=== PATIENT | female | born 1935 | race Caucasian/White ===

== ENCOUNTER 2020-07-28 08:00 | Outpatient (REF) | payer MEDICARE, SELFPAY ==
[2020-07-28 15:22] LABS: Creatinine Urine 153.73 mg/dL; Microalbum/Creatinine Ratio Ur 47.4 ug/mg cr
== END 2020-07-28 08:01 | disposition home or self-care (01) ==
LOC: HO.LAB 08:00
PROVIDERS: Visit Provider Family Medicine
DX: E11.9 Type 2 diabetes mellitus without complications (principal)
CPT/HCPCS: 82043

== ENCOUNTER → 2020-08-13 10:21 | Outpatient (BNVA) | payer MEDICARE, SELFPAY | PROVIDERS: PCP Family Medicine; Referring Provider Family Medicine; Visit Provider Internal Medicine Cardiovascular Disease | DX: I25.10 Atherosclerotic heart disease of native coronary artery without angina pectoris (principal) | CPT/HCPCS: 99212 ==

== ENCOUNTER 2020-10-27 14:07 | Outpatient (REF) | payer MEDICARE, SELFPAY ==
[2020-10-27 14:54] LABS: Creatinine Urine 158.52 mg/dL; Microalbum/Creatinine Ratio Ur 34.6 ug/mg cr
== END 2020-10-27 14:08 | disposition home or self-care (01) ==
LOC: HO.LNP 14:07
PROVIDERS: Visit Provider Family Medicine
DX: I10 Essential (primary) hypertension (principal); E11.9 Type 2 diabetes mellitus without complications
CPT/HCPCS: 82043

== ENCOUNTER → 2021-02-16 10:02 | Outpatient (BNVA) | payer MEDICARE, SELFPAY | PROVIDERS: PCP Family Medicine; Referring Provider Family Medicine; Visit Provider Internal Medicine Cardiovascular Disease | DX: I25.10 Atherosclerotic heart disease of native coronary artery without angina pectoris (principal); I10 Essential (primary) hypertension | CPT/HCPCS: 93005; 99212 ==

== ENCOUNTER 2021-04-07 07:14 | Outpatient (REF) | payer MEDICARE, SELFPAY ==
[2021-04-07 09:07] LABS: Hematocrit 41.3 % (37-47); Hemoglobin 13.7 g/dl (12.0-16.0); Mean Corpuscular HGB Conc 33.2 g/dl (31.0-35.0); Mean Corpuscular Hemoglobin 29.7 pg (27.0-33.0); Mean Corpuscular Volume 89.4 fL (80-98); Mean Platelet Volume 10.5 fL (9.4-12.3); Platelet Count 348 X10*3/uL (160-400); Red Blood Count 4.62 X10*6/uL (4.20-5.50); Red Cell Distribution Width 12.3 % (11.0-16.0); White Blood Count 9.2 X10*3/uL (4.8-10.8)
[2021-04-07 09:32] LABS: Alanine Aminotransferase 30 U/L (0-31); Albumin Level 4.2 g/dL (3.5-5.0); Alkaline Phosphatase 81 U/L (39-117); Anion Gap 15 (12-20); Aspartate Amino Transferase 19 U/L (5-31); Bilirubin Total 0.7 mg/dL (0.0-1.0); Blood Urea Nitrogen 17 mg/dL (9-16); Calcium 9.5 mg/dL (8.4-10.2); Carbon Dioxide 23 mmol/L (22-29); Chloride 107 mmol/L (96-108); Cholesterol 126 mg/dL; Estimated Glomerular Filt Rate > 60; Glucose Fasting 156 mg/dL (60-99); HDL Cholesterol 53 mg/dL; LDL Cholesterol Calculated 56 mg/dl; Potassium 5.1 mmol/L (3.3-5.1); Sodium 140 mmol/L (135-145); Total Protein 6.6 g/dL (6.5-8.0); Triglycerides 87 mg/dL
[2021-04-07 09:38] LABS: Iron 64 mcg/dL (30-160); Magnesium 1.6 mg/dL (1.6-2.6); Percent Iron Saturation 17 % (15-50); Phosphorus 4.2 mg/dL (2.7-4.5); Total Iron Binding Capacity 379 mcg/dL (228-428); Unsaturated Iron Binding 315 ug/dL
[2021-04-07 09:42] LABS: Creatinine Urine 157.66 mg/dL; Protein/Creatinine Ratio, Ur 0.51 (<0.2); Total Protein Urine Random 81 mg/dL (<12)
[2021-04-07 09:45] LABS: Creatinine Urine 158.97 mg/dL
[2021-04-07 10:05] LABS: Microalbum/Creatinine Ratio Ur 342.2 ug/mg cr
[2021-04-07 10:12] LABS: Vitamin D 25-OH Total 15.6 ng/mL (>30)
[2021-04-07 10:42] LABS: Ferritin 30 ng/mL (10-250)
[2021-04-09 17:51] LABS: Calcium (PTHI) 9.5 mg/dL (8.6-10.4); PTHI 56 pg/mL (14-64)
== END 2021-04-07 07:15 | disposition home or self-care (01) ==
LOC: HO.LAB 07:14
PROVIDERS: PCP Family Medicine; Visit Provider Internal Medicine Nephrology
DX: Z00.00 Encounter for general adult medical examination without abnormal findings (principal); I12.9 Hypertensive chronic kidney disease with stage 1 through stage 4 chronic kidney disease, or unspecified chronic kidney disease; N18.31 Chronic kidney disease, stage 3a; E11.22 Type 2 diabetes mellitus with diabetic chronic kidney disease; I25.10 Atherosclerotic heart disease of native coronary artery without angina pectoris
CPT/HCPCS: 36415; 80053; 80061; 82043; 82306; 82728; 83540; 83735; 83970; 84100; 84156; 85027

== ENCOUNTER → 2021-04-16 12:50 | Outpatient (REF) | payer MEDICARE, SELFPAY ==
--- NOTE | 2021-04-16 12:52 | CA_ITS ---
Transthoracic Echocardiogram Patient (Last, First, Middle): Candace Rodriguez, Gender: Female Date of : 1935 Age: 85 Procedure Date: 04/16/2021 Procedure Type: Transthoracic Echocardiogram Location: OP Height: 149.86 cm Weight: 64.86 kg BSA: 1.60 m2 Heart Rate: bpm BP: 122 / 46 mmHg Winder Hand: Referring MD: Nico Sanchez MD Symptoms: I25.10 - Atherosclerotic heart disease of [place] coronary... Study Quality: Fair ECG Rhythm: Sinus Conclusions: - The left ventricular systolic function is normal. The visually estimated ejection fraction is between 65-70%. - There is mildly decreased right ventricular systolic function. - The left atrium is moderately dilated. - There is mild calcification of the aortic valve. - There is moderate posterior mitral annular calcification. - There is mild tricuspid valve regurgitation. - Small plaque is seen in the sinuses of Valsalva. Findings Left Ventricle Normal left ventricular cavity size. There is mildly increased left ventricular wall thickness. The left ventricular systolic function is normal. The visually estimated ejection fraction is between 65-70%. E/E prime ratio is >15, consistent with elevated filling pressures. Evidence suggests grade I (mild) diastolic dysfunction. Right Ventricle Normal right ventricular cavity size. There is mildly decreased right ventricular systolic function. TAPSE 1.52cm. Atria The left atrium is moderately dilated. The right atrium is normal in size. Aortic Valve There is mild calcification of the aortic valve. There is no aortic valve stenosis. There is mild aortic valve regurgitation. Mitral Valve There is moderate posterior mitral annular calcification. There is mild mitral valve regurgitation. There is no mitral valve stenosis. Pulmonic Valve There is mild pulmonic valve regurgitation. Tricuspid Valve Normal tricuspid valve structure. There is mild tricuspid valve regurgitation. The pulmonary artery systolic pressure is normal. Great Vessels The aortic annulus, sinuses of valsalva, asc aorta, and aortic arch are normal in size. Small plaque is seen in the sinuses of Valsalva. Venous The inferior vena cava is normal in size and collapses greater than 50% with inspiration. Pericardium/Pleural There is no evidence of pericardial effusion. Prior Study Comparison Changes noted compared to prior study dated: 04/22/2020. Apical wall motion abnormality not appreciated. Measurements 2D Linear Measurements RVIDd: 3.23 RVIDd Index: 2.02 IVSd: 1.30 0.6-0.9/0.6-1.0 cm LVIDd: 4.20 3.9-5.3/4.2-5.9 cm LVIDd Index: 2.63 2.4-3.2/2.2-3.1 cm/m2 LVIDs: 2.48 2.0-3.6 cm LVPWd: 1.08 0.7-1.1 cm Ao Root: 2.80 2.1-3.5 cm LA Diam: 4.60 2.7-3.8/3.0-4.0 cm LAIDs Index: 2.88 1.5-2.3 cm/m2 LV Mass: 219.23 67-162/88-224 g LV Mass Index: 137.02 43-95/49-115 g/m2 LVOT Diam: 2.00 3.0+(-)1.3 cm 2D Systolic Function EF 4C: 61.30 >55% EF 2C: 72.30 >55% EF BiP: 69.10 >55% Mitral Valve MV Pk E: 1.06 MV PK A: 1.58 MV Decel Time: 420.00 E/A: 0.70 E'Lateral: 6.42 E'Medial: 3.81 E/E' Med: 27.80 E/E' Lat: 16.50 Aortic Valve AoV Pk Francisco Javier: 1.82 AoV Mn Francisco Javier: 1.41 AoV VTI: 0.43 AoV Pk Grad: 13.00 Aov Mn Grad: 9.00 AZEEM Cont.VTI: 1.83 AI Pk Francisco Javier: 3.96 AI Kent: 1.85 LVOT LVOT Pk Francisco Javier: 1.19 LVOT Mn Francisco Javier: 0.87 LVOT VTI: 0.25 LVOT Pk Grad: 6.00 LVOT Mn Grad: 3.00 LVOT Diam: 2.00 LVOT Area: 3.14 Diastolic Function MV Pk E: 1.06 MV Pk A: 1.58 E/A: 0.70 E'Medial: 3.81 E/E' Med: 27.80 E' Laterial: 6.42 E/E' Lat: 16.50 Right Ventricle TAPSE (mm): 15.00 TVS' Francisco Javier: 6.20 Tricuspid Valve TR Pk Francisco Javier: 2.59 TR Pk Grad: 27.00 RA Press: 3.00 RVSP: 30.00 Great Vessels Aorta Ao Root-2D: 2.80 2.0-3.7 cm Ao Asc: 3.20 2.1-3.4 cm Ao Arch: 2.60 Updated in Other Vendor System with Status of Final Benitez Christy MD electronically signed on 04/17/2021 11:29:30 AM with status of Final
== END ==
LOC: HO.CARD 12:50
PROVIDERS: PCP Family Medicine; Visit Provider Internal Medicine Cardiovascular Disease
DX: I25.10 Atherosclerotic heart disease of native coronary artery without angina pectoris (principal)
CPT/HCPCS: 93306

== ENCOUNTER 2021-08-02 12:09 | Outpatient (REF) | payer MEDICARE, SELFPAY ==
[2021-08-02 14:11] LABS: Appearance Urine CLEAR; Color Urine YELLOW; Glucose Urine UA NEG (NEG); Leukocyte Esterase Urine NEG (NEG); Nitrite Urine NEG (NEG); PH 5.5 (5.0-8.0); Specific Gravity - Urine >= 1.030 (1.005-1.025); Urine Blood NEG (NEG); Urine Ketones NEG (NEG); Urine Protein 2+ MG/DL (NEG-TRACE)
[2021-08-02 14:30] LABS: Alanine Aminotransferase 34 U/L (0-31); Albumin Level 4.4 g/dL (3.5-5.0); Alkaline Phosphatase 99 U/L (39-117); Anion Gap 17 (12-20); Aspartate Amino Transferase 21 U/L (5-31); Bilirubin Total 0.8 mg/dL (0.0-1.0); Blood Urea Nitrogen 17 mg/dL (9-16); Calcium 10.1 mg/dL (8.4-10.2); Carbon Dioxide 21 mmol/L (22-29); Chloride 106 mmol/L (96-108); Cholesterol 136 mg/dL; Estimated Glomerular Filt Rate > 60; Glucose Random 138 mg/dL (60-115); HDL Cholesterol 51 mg/dL; LDL Cholesterol Calculated 55 mg/dl; Potassium 5.3 mmol/L (3.3-5.1); Sodium 139 mmol/L (135-145); Total Protein 7.3 g/dL (6.5-8.0); Triglycerides 153 mg/dL
[2021-08-02 14:31] LABS: Estimated Average Glucose 174 mg/dL; Hemoglobin A1c % 7.7 %
[2021-08-02 14:51] LABS: Creatinine Urine 123.55 mg/dL; Microalbum/Creatinine Ratio Ur 599.7 ug/mg cr
[2021-08-02 14:52] LABS: TSH reflex Free T4 3.29 uIU/mL (0.32-4.0)
[2021-08-02 16:06] LABS: Bacteria Urine TRACE /LPF; RBC Urine 0-2 /HPF (0); Squamous Epithelial Cell Urine 1+ /LPF; WBC Urine 0-2 /HPF (0-4)
== END 2021-08-02 12:10 | disposition home or self-care (01) ==
LOC: HO.WFDLDS 12:09
PROVIDERS: Visit Provider Family Medicine
DX: Z00.00 Encounter for general adult medical examination without abnormal findings (principal); I10 Essential (primary) hypertension; E11.65 Type 2 diabetes mellitus with hyperglycemia
CPT/HCPCS: 36415; 80053; 80061; 81001; 81003; 82043; 83036; 84443

== ENCOUNTER 2021-08-06 07:20 | Outpatient (REF) | payer MEDICARE, SELFPAY ==
[2021-08-06 13:47] LABS: Appearance Urine HAZY; Color Urine YELLOW; Glucose Urine UA NEG (NEG); Leukocyte Esterase Urine NEG (NEG); Nitrite Urine NEG (NEG); PH 5.5 (5.0-8.0); Specific Gravity - Urine 1.025 (1.005-1.025); Urine Blood NEG (NEG); Urine Ketones NEG (NEG); Urine Protein 1+ MG/DL (NEG-TRACE)
[2021-08-06 13:56] LABS: RBC Urine 0 /HPF (0); Uric Acid Crystals Urine 2+ /LPF; WBC Urine 0-2 /HPF (0-4)
[2021-08-06 13:57] LABS: Amorphous Sediment Urine 2+ /LPF; Squamous Epithelial Cell Urine TRACE /LPF
== END 2021-08-06 07:21 | disposition home or self-care (01) ==
LOC: HO.WFDLDS 07:20
PROVIDERS: Visit Provider Family Medicine
DX: Z00.00 Encounter for general adult medical examination without abnormal findings (principal)
CPT/HCPCS: 81001; 81003

== ENCOUNTER → 2021-08-12 09:57 | Outpatient (BNVA) | payer MEDICARE, SELFPAY | PROVIDERS: PCP Family Medicine; Referring Provider Family Medicine; Visit Provider Internal Medicine Cardiovascular Disease | DX: I25.10 Atherosclerotic heart disease of native coronary artery without angina pectoris (principal); I10 Essential (primary) hypertension | CPT/HCPCS: 99212 ==

== ENCOUNTER 2021-11-22 11:29 | Outpatient (REF) | payer MEDICARE, SELFPAY ==
[2021-11-22 14:23] LABS: Anion Gap 17 (12-20); Blood Urea Nitrogen 22 mg/dL (9-16); Calcium 9.8 mg/dL (8.4-10.2); Carbon Dioxide 21 mmol/L (22-29); Chloride 104 mmol/L (96-108); Estimated Glomerular Filt Rate 52; Glucose Random 170 mg/dL (60-115); Sodium 137 mmol/L (135-145)
[2021-11-22 14:35] LABS: Creatinine Urine 209.12 mg/dL; Microalbum/Creatinine Ratio Ur 90.8 ug/mg cr
== END 2021-11-22 11:30 | disposition home or self-care (01) ==
LOC: HO.WFDLDS 11:29
PROVIDERS: Visit Provider Family Medicine
DX: Z00.00 Encounter for general adult medical examination without abnormal findings (principal); I10 Essential (primary) hypertension
CPT/HCPCS: 36415; 80048; 82043

== ENCOUNTER → 2022-08-04 09:15 | Outpatient (REF) | payer MEDICARE, SELFPAY ==
--- NOTE | 2022-08-04 09:23 | CA_ITS ---
Transthoracic Echocardiogram Patient (Last, First, Middle): Candace Rodriguez, Gender: Female Date of : 1935 Age: 87 Procedure Date: 08/04/2022 Procedure Type: Transthoracic Echocardiogram Location: OP Height: 149.86 cm Weight: 63.5 kg BSA: 1.58 m2 Heart Rate: bpm BP: 132 / 55 mmHg Wood Grinder Operator: ALISSA Referring MD: Nico Sanchez MD Camp Attendant: Nico Sanchez MD Symptoms: I25.10 - Atherosclerotic heart disease of [place] coronary... Study Quality: Adequate ECG Rhythm: Sinus Conclusions: - 1. Normal LV systolic function with mild LVH with impaired relaxation filling pattern 2. Moderately dilated left atrium 3. Mild calcific aortic stenosis 4. Severe mitral calcification with possible mild mitral stenosis 5. Normal RV systolic pressure 6. No pericardial effusion Findings Left Ventricle Normal left ventricular size and systolic function. There is mildly increased left ventricular wall thickness. The visually estimated ejection fraction is between 60-65%. Spectral Doppler is indicative of an impaired relaxation filling pattern. Elevated filling pressures. Peak GLS is -18.1%, within normal limits Right Ventricle Normal right ventricular cavity size. There is mildly decreased right ventricular systolic function. Atria The left atrium is moderately dilated. There is lipomatous hypertrophy of the interatrial septum. There is no evidence of interatrial shunt. The right atrium is likely dilated. Aortic Valve The aortic valve was not well visualized. There is mild calcification of the aortic valve. There is mild thickening of the aortic valve. There is mild aortic valve stenosis. The aortic valve area is 1.70 cm2. There is mild aortic valve regurgitation. Mitral Valve There is mild anterior and severe posterior mitral leaflet thickening. There is severe mitral annular calcification. There is mild mitral valve regurgitation. There is mild mitral valve stenosis. Pulmonic Valve The pulmonic valve was not well visualized. There is trace to mild pulmonic valve regurgitation. Tricuspid Valve Normal tricuspid valve structure. There is mild tricuspid valve regurgitation. The right ventricular systolic pressure is normal. The right ventricular systolic pressure is 25 mmHg. Normal right atrial pressure. There is no evidence of pulmonary hypertension. Great Vessels Small plaque is seen in the sino tubular ridge. Venous The inferior vena cava is normal in size and collapses greater than 50% with inspiration. Pericardium/Pleural There is no evidence of pericardial effusion. Prior Study Comparison Changes noted compared to prior study dated: 04/16/2021. mild aortic stenosis is possibly present Measurements 2D Linear Measurements IVSd: 1.35 0.6-0.9/0.6-1.0 cm LVIDd: 4.32 3.9-5.3/4.2-5.9 cm LVIDd Index: 2.73 2.4-3.2/2.2-3.1 cm/m2 LVIDs: 3.04 2.0-3.6 cm LVPWd: 1.31 0.7-1.1 cm LA Diam: 4.20 2.7-3.8/3.0-4.0 cm LAIDs Index: 2.66 1.5-2.3 cm/m2 LV Mass: 269.82 67-162/88-224 g LV Mass Index: 170.78 43-95/49-115 g/m2 LVOT Diam: 1.90 3.0+(-)1.3 cm 2D Systolic Function EF 4C: 62.50 >55% EF 2C: 60.40 >55% EF BiP: 61.60 >55% Mitral Valve MV VTI: 0.57 MV Pk Francisco Javier: 2.02 MV Mn Francisco Javier: 0.92 MV Pk Grad: 16.00 MV Mn Grad: 4.00 MV Pk E: 1.19 MV PK A: 1.76 MV Decel Time: 278.00 E/A: 0.70 E'Lateral: 5.66 E'Medial: 4.13 E/E' Med: 28.80 E/E' Lat: 21.00 PHT: 81.00 MVA PHT: 2.72 MVA Continuity: 1.20 Decel [place]imble: 4.29 Aortic Valve AoV Pk Francisco Javier: 1.90 AoV Mn Francisco Javier: 1.20 AoV VTI: 0.41 AoV Pk Grad: 14.00 Aov Mn Grad: 7.00 AZEEM Cont.VTI: 1.70 AI Pk Francisco Javier: 3.28 AI Trimble: 1.52 LVOT LVOT Pk Francisco Javier: 1.01 LVOT Mn Francisco Javier: 0.66 LVOT VTI: 0.24 LVOT Pk Grad: 4.00 LVOT Mn Grad: 2.00 LVOT Diam: 1.90 LVOT Area: 2.84 Diastolic Function MV Pk E: 1.19 MV Pk A: 1.76 E/A: 0.70 E'Medial: 4.13 E/E' Med: 28.80 E' Laterial: 5.66 E/E' Lat: 21.00 Right Ventricle TAPSE (mm): 15.50 TVS' Francisco Javier: 9.25 Tricuspid Valve TR Pk Francisco Javier: 2.36 TR Pk Grad: 22.00 RA Press: 3.00 RVSP: 25.00 Great Vessels Aorta Sinus of Valsalva: 3.39 2.0-3.[address] [place]: 2.13 1.7-3.4 cm Ao Asc: 3.50 2.1-3.4 cm Updated in Other Vendor System with Status of Final Nico Sanchez MD electronically signed on 08/04/2022 1:31:49 PM with status of Final
== END ==
LOC: HO.CARD 09:15
PROVIDERS: Visit Provider Internal Medicine Cardiovascular Disease
DX: I25.10 Atherosclerotic heart disease of native coronary artery without angina pectoris (principal)
CPT/HCPCS: 93306

== ENCOUNTER → 2022-08-15 09:51 | Outpatient (BNVA) | payer MEDICARE, SELFPAY | PROVIDERS: PCP Family Medicine; Referring Provider Family Medicine; Visit Provider Internal Medicine Cardiovascular Disease | DX: I25.10 Atherosclerotic heart disease of native coronary artery without angina pectoris (principal); I35.0 Nonrheumatic aortic (valve) stenosis | CPT/HCPCS: 93005; 99212 ==

== ENCOUNTER 2022-08-18 09:48 | Outpatient (REF) | payer MEDICARE, SELFPAY ==
[2022-08-18 11:58] LABS: Cholesterol 118 mg/dL; HDL Cholesterol 46 mg/dL; LDL Cholesterol Calculated 48 mg/dl; Triglycerides 121 mg/dL
== END 2022-08-18 09:49 | disposition home or self-care (01) ==
LOC: HO.WFDLDS 09:48
PROVIDERS: Visit Provider Internal Medicine Cardiovascular Disease
DX: I25.10 Atherosclerotic heart disease of native coronary artery without angina pectoris (principal)
CPT/HCPCS: 36415; 80061

== ENCOUNTER 2022-09-20 12:22 | Outpatient (REF) | payer MEDICARE, SELFPAY ==
[2022-09-20 15:18] LABS: Anion Gap 14 (12-20); Blood Urea Nitrogen 21 mg/dL (9-16); Calcium 9.4 mg/dL (8.4-10.2); Carbon Dioxide 22 mmol/L (22-29); Chloride 107 mmol/L (96-108); Estimated Glomerular Filt Rate > 60; Glucose Random 60 mg/dL (60-115); Potassium 4.8 mmol/L (3.3-5.1); Sodium 138 mmol/L (135-145)
[2022-09-20 15:31] LABS: Creatinine Urine 127.36 mg/dL; Microalbum/Creatinine Ratio Ur 82.4 ug/mg cr
== END 2022-09-20 12:23 | disposition home or self-care (01) ==
LOC: HO.WFDLDS 12:22
PROVIDERS: Visit Provider Family Medicine
DX: Z00.00 Encounter for general adult medical examination without abnormal findings (principal); E11.9 Type 2 diabetes mellitus without complications; R80.9 Proteinuria, unspecified; I10 Essential (primary) hypertension
CPT/HCPCS: 36415; 80048; 82043

== ENCOUNTER 2023-04-12 11:11 | Outpatient (AMB) | payer MEDICARE, SELFPAY ==
[2023-04-12 11:13] VITALS: BP 118/60; PULSE 67; O2SAT 96; BMI 28.7
--- NOTE | 2023-04-12 11:13 | MHC.PC.OV ---
Vital Signs 04/12/23 11:13 Height 4 ft 11 in Weight 142 lb BMI 28.7 BP 118/60 Blood Pressure Location Lt brachial Position Sitting Pulse 67 Pulse Source Pulse Oximeter Pulse Oximetry (%) 96 Oxygen Delivery Method Room Air Intake Visit Reasons: f/u diabetes Intake Note: Patient is here to follow up on her diabetes. Allergies latex [LATEX] Allergy (Intermediate, Verified 04/12/23 11:16) ITCHING pineapple [PINEAPPLE] Allergy (Unknown, Verified 04/12/23 11:16) TONGUE SWELLS Medication List - Last Reconciled 04/12/23 by Maycol Yan MD amlodipine 10 mg PO DAILY aspirin 81 mg PO DAILY atorvastatin 40 mg PO DAILY glipizide ER 10 mg PO DAILY 90 days hydralazine 12.5 mg (1/2 x 25 mg) PO BID losartan 100 mg PO DAILY 90 days metformin 1,000 mg PO BID 90 days miscellaneous medical supply Diabetic shoes, Daily As directed, 999 days Tobacco use date assessed: 06/21/22 Fall risk assessment: No Falls in past year Last assessed Fall Risk: 04/12/23 Dental Screening Dental Screen Date: 04/12/23 Did you have a dental visit in the last 12 months?: Yes Did you have a dental problem in the last 6 months where you did not have access to dental care?: No Was dental information given to patient?: No HPI f/u diabetes HPI Details 87 y/o female presents to f/u diabetes. Last A1c 02/10/23 was 7.5%. A1c today 04/12/23 is 6.6%. She is on metformin 1000mg b.i.d. and glipizide 10mg daily. Last diabetic eye exam was in November, with no complications. 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 Sister No problems noted. Son No problems noted. Son No problems noted. Daughter No problems noted. Daughter No problems noted. Social History Housing: Condominium Patient Tobacco Use Status: Never used Tobacco e-Cigarette/Vaping Use: Never Used Second Hand Smoke Exposure: No Advance Directives Date on File: 06/10/20 service: No Current occupational status: retired Current occupational exposures/hazards: No Cognitive needs: No Hearing needs: No Vision needs: No Questionnaire Thrive Questionnaire Date Thrive assessed: 09/20/22 JUAN LUIS-7 AMB Questionnaire JUAN LUIS-7 Date JUAN LUIS - 7 assessed: 09/20/22 Source: Developed by Drs. Ace Cooper, Sophie Woody, Man Cerna and colleagues, with an educational shannan from [employer]. Review of Systems Const Denies chills, Denies fatigue, Denies fever(s), Denies headache(s) and Denies weakness ENT Denies dizziness and Denies headache(s) Card Denies chest pain, Denies lightheadedness, Denies dyspnea and Denies other (Palpitations) Resp Denies cough, Denies dyspnea, Denies wheezing and Denies other ( shortness of breath) Musc Denies numbness and Denies tingling Neuro Denies dizziness, Denies headache(s), Denies numbness, Denies tingling, Denies paresthesias and Denies weakness Psych Denies anxiety and Denies depression Endo Denies fatigue Aller/Immun Denies wheezing Physical exam (Primary Care) Vital Signs: Last Vital Signs Pulse 67 04/12/23 11:13 BP 118/60 04/12/23 11:13 Pulse Ox 96 04/12/23 11:13 Oxygen Delivery Method Room Air 04/12/23 11:13 BMI result Body Mass Index 28.7 Tobacco/Smoking Status: Tobacco use Status Tobacco use date assessed 06/21/22 04/12/23 11:22 Patient Tobacco Use Status Never used Tobacco 04/12/23 11:22 e-Cigarette/Vaping Use Never Used 04/12/23 11:22 Thrive Assessment: Date of Thrive Assessment Date Thrive assessed 09/20/22 04/12/23 11:22 Const General: no acute distress and well developed Nutritional Appearance: well nourished Orientation/consciousness: patient oriented x3 HENMT Head: Yes normocephalic and Yes atraumatic Eyes General: appearance normal, both eyes and all related structures Pupils: Equal, round and reactive pupils present EOM: EOMs intact bilaterally Resp Effort & Inspection: normal respiratory effort Auscultation: clear to auscultation bilaterally Cardio Rate: regular rate Rhythm: regular rhythm Heart sounds: S1 normal heart sound present, S2 normal heart sound present, no gallops, no murmurs and no rubs Neuro General: patient oriented x3 and gait normal Cranial nerves: Yes Equal, round and reactive pupils present Psych Affect: normal affect Results AMB Hemoglobin A1c AMB Hemoglobin A1c 6.6 % Last Edit by Winnie Villarreal CMA on 04/12/23 11:31 Results Reviewed Results Reviewed: Laboratory Last Values Hgb A1c (Clinic) 6.6 % (4.0-6.0) H 04/12/23 11:25 Assessment and Plan Assessment & Plan (1) Diabetes type 2, controlled: Code(s): E11.9 - Type 2 diabetes mellitus without complications Plan: A1c much improved and now 6.6%; good control. Goal is less than 7.0% A1c had risen at prior Check but she has been working hard at lifestyle changes. She will continue her current medication regimen Continue diabetic diet and exercise Orders: Orders AMB Hemoglobin A1c Today Z13.9 - Encounter for screening, unspecified Comprehensive [place]. Panel Fast Today Z00.00 - Encounter for general adult medical examination without abnormal findings Lipid Panel Today Z00.00 - Encounter for general adult medical examination without abnormal findings TSH reflex Free T4 Today Z00.00 - Encounter for general adult medical examination without abnormal findings Microalbumin, Random (w Creat) Today I10 - Essential (primary) hypertension Complete Blood Count Auto Diff Today Z00.00 - Encounter for general adult medical examination without abnormal findings UA and rflx microscopic Today Z00.00 - Encounter for general adult medical examination without abnormal findings Coding Level of Care Code Est Pt Level 3 (88181) Diagnoses Diabetes type 2, controlled E11.9
== END 2023-04-12 12:14 | disposition home or self-care (01) ==
PROVIDERS: PCP Family Medicine; Visit Provider Family Medicine
DX: E11.9 Type 2 diabetes mellitus without complications (principal)
CPT/HCPCS: 83036; 99213

== ENCOUNTER 2023-07-13 08:50 | Outpatient (REF) | payer MEDICARE, SELFPAY ==
[2023-07-13 11:13] LABS: MANUAL DIFF FLAG NO
[2023-07-13 11:33] LABS: Appearance Urine Cloudy; Color Urine DK YELLOW; Glucose Urine UA Negative (Negative); Leukocyte Esterase Urine Negative (Negative); Nitrite Urine Negative (Negative); UMIC TRIGGER UA YES; Urine Blood Negative (Negative); Urine Ketones Negative (Negative); Urine Protein 100 (2+) mg/dL (Neg-Trace)
[2023-07-13 11:39] LABS: Basophils Absolute Auto 0.1 X10*3/uL (0.0-0.2); Basophils Percent Auto 0.9 % (0-2); Eosinophils Absolute Auto 0.4 X10*3/uL (0.0-0.4); Eosinophils Percent Auto 5.1 % (0-4); Hematocrit 39.5 % (37.0-47.0); Hemoglobin 13.2 g/dl (12.0-16.0); Imm Gran Abs Auto 0.03 X10*3/uL (0.00-0.03); Imm Gran Pct Auto 0.4 % (0.0-0.4); Lymphocytes Absolute Auto 1.6 X10*3/uL (1.2-4.9); Lymphocytes Percent Auto 19.9 % (20-40); Mean Corpuscular HGB Conc 33.4 g/dl (31.0-35.0); Mean Corpuscular Hemoglobin 30.1 pg (27.0-33.0); Mean Corpuscular Volume 90.2 fL (80.0-98.0); Mean Platelet Volume 10.1 fL (9.4-12.3); Monocytes Absolute Auto 0.9 X10*3/uL (0.1-1.2); Monocytes Percent Auto 11.2 % (2-11); Neutrophils Percent Auto 62.5 % (45-73); Platelet Count 359 X10*3/uL (160-400); Red Blood Count 4.38 X10*6/uL (4.20-5.50); Red Cell Distribution Width 12.3 % (11.0-16.0)
[2023-07-13 11:43] LABS: Bacteria Urine 4+ (None Seen); Hyaline Casts Urine 0-2 /LPF (0-2); RBC Urine 0-2 /HPF (0-2); Squamous Epithelial Cell Urine 0-2 /HPF (0-2); WBC Urine 0-5 /HPF (0-5)
[2023-07-13 11:44] LABS: Other Crystals Urine Present
[2023-07-13 11:49] LABS: Alanine Aminotransferase 16 U/L (0-31); Albumin Level 4.1 g/dL (3.5-5.0); Alkaline Phosphatase 78 U/L (39-117); Anion Gap 14 (12-20); Aspartate Amino Transferase 15 U/L (5-31); Bilirubin Total 0.7 mg/dL (0.0-1.0); Blood Urea Nitrogen 17 mg/dL (9-16); Calcium 9.5 mg/dL (8.4-10.2); Carbon Dioxide 24 mmol/L (22-29); Chloride 107 mmol/L (96-108); Cholesterol 111 mg/dL (<200); Estimated Glomerular Filt Rate > 60; Glucose Fasting 120 mg/dL (60-99); HDL Cholesterol 44 mg/dL (>40); LDL Cholesterol Calculated 45 mg/dL (<100); Potassium 5.4 mmol/L (3.3-5.1); Sodium 140 mmol/L (135-145); Total Protein 7.4 g/dL (6.5-8.0); Triglycerides 111 mg/dL (<150)
[2023-07-13 12:06] LABS: Creatinine Urine 68.38 mg/dL
[2023-07-13 12:11] LABS: TSH reflex Free T4 4.05 uIU/mL (0.32-4.0)
[2023-07-13 12:37] LABS: Microalbum/Creatinine Ratio Ur 1092.4 ug/mg cr (<30)
[2023-07-13 13:40] LABS: Free T4 (Free Thyroxine) 0.88 ng/dL (0.71-1.85)
== END 2023-07-13 08:51 | disposition home or self-care (01) ==
LOC: HO.WFDLDS 08:50
PROVIDERS: Visit Provider Family Medicine
DX: Z00.00 Encounter for general adult medical examination without abnormal findings (principal); I10 Essential (primary) hypertension
CPT/HCPCS: 36415; 80053; 80061; 81001; 82043; 82570; 84439; 84443; 85025

== ENCOUNTER 2023-07-20 11:06 | Outpatient (AMB) | payer MEDICARE, SELFPAY ==
--- NOTE | 2023-07-20 11:11 | A.OFFPC_ITS ---
Vital Signs 07/20/23 11:14 Height 4 ft 11 in Weight 147 lb BMI 29.7 BP 132/82 Blood Pressure Location Lt brachial Position Sitting Pulse 82 Pulse Source Pulse Oximeter Pulse Oximetry (%) 95 Oxygen Delivery Method Room Air Intake Visit Reasons: Extended exam with f/u labs and health maintenance Intake Note: Patient is here for extended exam and follow up on labs. Allergies latex [LATEX] Allergy (Intermediate, Verified 07/20/23 11:17) ITCHING pineapple [PINEAPPLE] Allergy (Unknown, Verified 07/20/23 11:17) TONGUE SWELLS Tobacco use date assessed: 07/20/23 Fall risk assessment: No Falls in past year Last assessed Fall Risk: 07/20/23 Dental Screening Dental Screen Date: 07/20/23 Did you have a dental visit in the last 12 months?: No Did you have a dental problem in the last 6 months where you did not have access to dental care?: No Was dental information given to patient?: Patient declined HPI Extended exam with f/u labs and health maintenance HPI Details 88 y/o female presents for an extended e xam with f/u labs and health maintenance. Labs were drawn 07/13/23. Reviewed labs with pt. Elevated potassium at 5.4 mmol/L. A1c today 07/20/23 6.5%. Triglycerides 111. TC 111. LDL 45. HDL 44. She is on artovastatin 40mg daily. Elevated TSH at 4.05. 4+ urine bacteria seen. Blood pressure today 132/82. She is on amlodipine 10mg, hydralazine 12.5mg b.i.d. and losartan 100mg daily. Pt reports dryness on her legs. She denies any swelling on her legs. She sees her eye doctor once a year. HPI Comments History of Present Illness Details Documentation assistance for Maycol Yan MD, was provided by Bronson Vasquez, Fixed Wing Aircraft Flight Mechanic on 07/20/2023 12:02 PM TITO. I, Dr. Yan, have read, observed, and verified documentation. 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 Sister No problems noted. Son No problems noted. Son No problems noted. Daughter No problems noted. Daughter No problems noted. [facility] Patient Tobacco Use Status: Never used Tobacco e-Cigarette/Vaping Use: Never Used Second Hand Smoke Exposure: No Advance Directives Date on File: 06/10/20 service: No Current occupational status: retired Current occupational exposures/hazards: No Cognitive needs: No Hearing needs: No Vision needs: No Questionnaire Thrive Questionnaire Date Thrive assessed: 09/20/22 JUAN LUIS-7 AMB Questionnaire JUAN LUIS-7 Date JUAN LUIS - 7 assessed: 09/20/22 Source: Developed by Drs. Ace Cooper, Sophie Woody, Man Cerna and colleagues, with an educational shannan from [employer]. Review of Systems Const Denies chills, Denies fatigue, Denies fever(s), Denies headache(s) and Denies weakness Eyes Denies change in vision ENT Denies dizziness, Denies headache(s), Denies hearing loss, Denies nasal congestion, Denies sinus pain, Denies sinus pressure and Denies sore throat Card Denies chest pain, Denies lightheadedness, Denies dyspnea and Denies other (palpitations) Resp Denies cough, Denies dyspnea and Denies wheezing GI Denies abdominal pain, Denies melena, Denies hematochezia, Denies change in bowel habits, Denies dyspepsia and Denies nausea Denies hematuria and Denies dysuria Musc Denies abnormal gait, Denies myalgias, Denies arthralgias, Denies numbness and Denies tingling Skin/Breast Denies rash, Denies unusual bruising and Denies wounds Neuro Denies abnormal gait, Denies dizziness, Denies headache(s), Denies memory loss, Denies numbness, Denies Sensory deficit (Neuro), Denies tingling and Denies weakness Psych Denies anxiety, Denies depression and Denies memory loss Endo Denies cold intolerance, Denies fatigue, Denies heat intolerance, Denies polydipsia and Denies polyuria Ravi/Lymph Denies easy bleeding and Denies easy bruising Aller/Immun Denies wheezing Physical exam (Primary Care) Vital Signs: Last Vital Signs Pulse 82 07/20/23 11:14 BP 132/82 07/20/23 11:14 Pulse Ox 95 07/20/23 11:14 Oxygen Delivery Method Room Air 07/20/23 11:14 BMI result Body Mass Index 29.7 Tobacco/Smoking Status: Tobacco use Status Tobacco use date assessed 07/20/23 07/20/23 11:22 Patient Tobacco Use Status Never used Tobacco 07/20/23 11:12 e-Cigarette/Vaping Use Never Used 07/20/23 11:12 Thrive Assessment: Date of Thrive Assessment Date Thrive assessed 09/20/22 07/20/23 11:12 Const General: no acute distress, well developed, alert and awake Nutritional Appearance: well nourished Orientation/consciousness: patient oriented x3 HENMT Head: Yes normocephalic and Yes atraumatic Ears: hearing grossly normal bilaterally and TM's normal bilaterally General nose exam: Normal external nose present and Normal nares present Mouth: Normal oral and palatal mucosa present and moist mucous membranes Teeth and gingiva: dentition normal Throat: Yes posterior oropharynx normal Eyes General: appearance normal, both eyes and all related structures Pupils: Equal, round and reactive pupils present and Pupil accommodation reflex normal EOM: EOMs intact bilaterally Neck Neck: Yes normal visual inspection, Yes no lymphadenopathy and Yes trachea midline Thyroid: Thyroid normal Carotids: no bruits Lymphatic: no lymphadenopathy noted Chest Chest palpation & inspection: normal inspection of the chest Resp Effort & Inspection: normal respiratory effort Auscultation: clear to auscultation bilaterally Cardio Rate: regular rate Rhythm: regular rhythm Heart sounds: S1 normal heart sound present, S2 normal heart sound present, no gallops, Murmur heart sound present and no rubs Bruits: no abdominal aortic bruits and no carotid bruits GI Palpation (GI): No Abdominal aortic bruit present, Soft to palpation, nontender, No hepatosplenomegaly present and No Rebound tenderness present Auscultation: normal bowel sounds General: Yes no CVA tenderness Back/Spine/Pelvis Back: no CVA tenderness Cervical Spine: cervical ROM normal and No Cervical spine tenderness Thoracic/Lumbar Spine: thoraco-lumbar ROM normal, No pain with thoraco-lumbar ROM, No thoracic spinal tenderness and No lumbar spinal tenderness Skin Lesions: no lesions Rashes: no rashes Trauma: no lacerations or abrasions Wounds: no wounds Nails: normal Neuro General: patient oriented x3 Cranial nerves: Yes Equal, round and reactive pupils present Cognition (Neuro): normal cognition Gait exam (Neuro): Normal gait present Motor exam (neuro): 5/5 motor strength present throughout Sensory Exam: No Sensory deficit (Neuro) Deep tendon reflexes (DTR's): Right patellar reflex intensity grade: 2+ and Left patellar reflex intensity grade: 2+ Extrem General: Yes normal to inspection and No edema Psych Appearance: grossly normal Affect: normal affect Attitude: cooperative Thought process: Normal thought process present Results AMB Hemoglobin A1c AMB Hemoglobin A1c 6.5 % Last Edit by Winnie Villarreal CMA on 07/20/23 11:41 Results Reviewed Results Reviewed: Laboratory Last Values Hgb A1c (Clinic) 6.5 % (4.0-6.0) H 07/20/23 11:36 Assessment and Plan Assessment & Plan (1) Essential hypertension: Code(s): I10 - Essential (primary) hypertension Plan: Fair?control.??Goal?is?less?than?130/80 Continue?current?medication Mild?hyperkalemia?and?patient?is?on?losartan. Advised?decreasing?foods?high?in?potassium (2) Diabetes type 2, controlled: Code(s): E11.9 - Type 2 diabetes mellitus without complications Plan: A1c?shows?good?control.??Goal?is?less?than?7.0% Continue?current?medication?regimen (3) Coronary artery disease: Code(s): I25.10 - Atherosclerotic heart disease of [place] coronary artery without angina pectoris Plan: Stable Follow-up?with?Cardiology?as?recommended (4) Hyperkalemia: Code(s): E87.5 - Hyperkalemia Plan: As?above,?elevated?potassium Advised?diet?low?in?potassium Follow-up?with?nephrology (5) Dry skin: Code(s): L85.3 - Xerosis cutis Plan: Will?give?her?a?short?course?of?steroid?cream Continue?moisturizer?like?Eucerin (6) Screening for osteoporosis: Code(s): Z13.820 - Encounter for screening for osteoporosis Plan: Has?not?had?a?bone?density?test?in?greater?than?2?years Ordered (7) Aortic stenosis: Code(s): I35.0 - Nonrheumatic aortic (valve) stenosis Plan: Stable Follow-up?with?Cardiology?as?recommended (8) Adult general medical examination: Code(s): Z00.00 - Encounter for general adult medical examination without abnormal findings Plan: 88-year-old?female?presents?for?an?extended?exam Encouraged?healthy?diet?with?active?lifestyle?and?plenty?of?exercise Orders: Orders AMB Hemoglobin A1c Today Z13.9 - Encounter for screening, unspecified XR DEXA axial skeleton Today M81.0 - Age-related osteoporosis without current pathological fracture Medications: New clobetasol 0.05% 1 appl topical BID 60 grams 0RF 2 weeks Coding Level of Care Code Est Pt Level 4 (08039) Diagnoses Essential hypertension I10 Diabetes type 2, controlled E11.9 Coronary artery disease I25.10 Hyperkalemia E87.5 Dry skin L85.3 Screening for osteoporosis Z13.820 Aortic stenosis I35.0 Adult general medical examination Z00.00
[2023-07-20 11:14] VITALS: BP 132/82; PULSE 82; O2SAT 95; BMI 29.7
== END 2023-07-20 12:51 | disposition home or self-care (01) ==
PROVIDERS: PCP Family Medicine; Visit Provider Family Medicine
DX: I10 Essential (primary) hypertension (principal); E11.9 Type 2 diabetes mellitus without complications; I25.10 Atherosclerotic heart disease of native coronary artery without angina pectoris; E87.5 Hyperkalemia; L85.3 Xerosis cutis; Z13.820 Encounter for screening for osteoporosis; I35.0 Nonrheumatic aortic (valve) stenosis
CPT/HCPCS: 83036; 99214

== ENCOUNTER 2023-08-15 08:25 | Outpatient (AMB) | payer MEDICARE, SELFPAY ==
--- NOTE | 2023-08-15 08:29 | MHC.OFFVIS ---
Intake Vital Signs 08/15/23 08:32 Height 4 ft 11 in Weight 143 lb 4.807 oz BMI 28.9 BP 130/52 L Blood Pressure Location Lt brachial Position Sitting Pulse 66 Intake Visit Reasons: 1 yr f/u (lipids) Intake Note: 1 yr f/up pt its its fine but like a week ago her right hand been feeling like pins and needles from shoulder down to her fingers. [employer] Attendant Required: No Accompanied by: Self / Same As Patient Allergies latex [LATEX] Allergy (Intermediate, Verified 08/15/23 08:35) ITCHING pineapple [PINEAPPLE] Allergy (Unknown, Verified 08/15/23 08:35) TONGUE SWELLS Medication List - Last Reconciled 08/15/23 by Nico Sanchez MD amlodipine 10 mg PO DAILY aspirin 81 mg PO DAILY atorvastatin 40 mg PO DAILY clobetasol 0.05% 1 appl topical BID 2 weeks glipizide ER 10 mg PO DAILY 90 days hydralazine 12.5 mg (1/2 x 25 mg) PO BID losartan 100 mg PO DAILY 90 days metformin 1,000 mg PO BID 90 days miscellaneous medical supply Diabetic shoes, Daily As directed, 999 days HPI HPI Comments History of Present Illness Details Candace comes for follow-up. She has been doing well with no cardiac symptoms. Denies any exertional chest pain shortness of breath. Still walks mi and a half in 30-45 minutes. Denies any prolonged palpitation irregular heartbeat. No lightheadedness, syncope. No orthopnea, PND. Takes all her medications. 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 Sister No problems noted. Son No problems noted. Son No problems noted. Daughter No problems noted. Daughter No problems noted. Social History Housing: Condominium Patient Tobacco Use Status: Never used Tobacco e-Cigarette/Vaping Use: Never Used Second Hand Smoke Exposure: No Advance Directives Date on File: 06/10/20 service: No Current occupational status: retired Current occupational exposures/hazards: No Cognitive needs: No Hearing needs: No Vision needs: No Review of Systems Const Reports chills, Reports fatigue, Reports fever(s), Reports frequent falls, Reports weakness, Reports weight gain and Reports weight loss ENT Reports dizziness Card Reports chest pain, Reports leg edema, Reports lightheadedness, Reports palpitations, Reports dyspnea and Reports dyspnea on exertion Resp Reports cough, Reports dyspnea and Reports dyspnea on exertion GI Reports hematochezia Musc Reports abnormal gait, Reports muscle weakness, Reports numbness, Reports radiating pain into limb and Reports tingling Neuro Reports abnormal gait, Reports dizziness, Reports frequent falls, Reports numbness, Reports tingling and Reports weakness Endo Reports fatigue and Reports palpitations Physical Exam Vital Signs: BMI result Body Mass Index 28.9 Const General: cooperative, comfortable, alert, awake, Physically active and well groomed Nutritional Appearance: overweight Orientation/consciousness: patient oriented x3 Limitations: no limitations Neck Neck: Yes trachea midline, Yes supple and Yes no JVD Chest Chest palpation & inspection: other (Mild keloid formation at the lower end of the sternotomy scar with no infec) Resp Effort & Inspection: normal respiratory effort Auscultation: clear to auscultation bilaterally Cardio Jugular venous distension: no JVD Palpation: normal PMI Rate: regular rate Heart sounds: S1 normal heart sound present, S2 normal heart sound present, no click, no gallops, Murmur heart sound present systolic early and Other heart sounds present (S4 present) GI Auscultation: normal bowel sounds Skin General skin exam: no rashes or lesions noted and ecchymosis Neuro General: patient oriented x3 and no focal motor deficits Extrem General: Yes no clubbing, cyanosis or edema Office Procedures EKG Details: NSR with septal infarct [id number], Complete Assessment & Plan Assessment & Plan (1) Coronary artery disease: Code(s): I25.10 - Atherosclerotic heart disease of [place] coronary artery without angina pectoris Plan: CAD status post coronary artery bypass grafting with surgical revascularization with no symptoms at good workload. Continue aggressive medical therapy. Patient is on low-dose aspirin therapy which should continue for life. Blood pressure is currently well optimized. Diabetes under your care with goal hemoglobin A1c less than 7%. Continue high-intensity statin therapy with target goal LDL less than 70 mg/dL. Encouraged to continue to participate in physical activity as tolerated. Advised to call me with any new symptoms. (2) Aortic stenosis: Code(s): I35.0 - Nonrheumatic aortic (valve) stenosis Plan: Calcific valvular disease with mild aortic stenosis and possible mild mitral stenosis. No interventions required. Continue aggressive vascular risk factor modifications above. Will follow up with echocardiogram next year. Follow up in the clinic in 1 year's time, sooner p.r.n.. Thank you for allowing me to partake in her care Coding Level of Care Code Est Pt Level 4 (92584) Diagnoses Coronary artery disease I25.10 Aortic stenosis I35.0 CPT Codes EKG - CPT: 97732-[id number], Complete ([id number])
[2023-08-15 08:32] VITALS: BP 130/52; PULSE 66; BMI 28.9
== END 2023-08-15 08:53 | disposition home or self-care (01) ==
PROVIDERS: Visit Provider Internal Medicine Cardiovascular Disease
DX: I25.10 Atherosclerotic heart disease of native coronary artery without angina pectoris (principal); I35.0 Nonrheumatic aortic (valve) stenosis
CPT/HCPCS: 93010; 99214

== ENCOUNTER → 2023-08-15 08:25 | Outpatient (BNVA) | payer MEDICARE, SELFPAY | PROVIDERS: Visit Provider Internal Medicine Cardiovascular Disease | DX: I25.10 Atherosclerotic heart disease of native coronary artery without angina pectoris (principal); I35.0 Nonrheumatic aortic (valve) stenosis | CPT/HCPCS: 93005; 99212 ==

== ENCOUNTER 2023-09-06 07:42 | Outpatient (REF) | payer MEDICARE, SELFPAY | END 2023-09-06 07:43 | disposition home or self-care (01) | LOC: HO.MAMMO 07:42 | PROVIDERS: PCP Family Medicine; Visit Provider Family Medicine | DX: Z13.820 Encounter for screening for osteoporosis (principal); Z78.0 Asymptomatic menopausal state; Z90.710 Acquired absence of both cervix and uterus; Z90.722 Acquired absence of ovaries, bilateral | CPT/HCPCS: 77080 ==

== ENCOUNTER 2023-11-09 11:07 | Outpatient (AMB) | payer MEDICARE, SELFPAY ==
[2023-11-09 11:26] VITALS: BP 130/70; PULSE 69; O2SAT 95; BMI 28.2
--- NOTE | 2023-11-09 11:26 | A.OFFPC_ITS ---
Vital Signs 11/09/23 11:26 Height 4 ft 11 in Weight 139 lb 8 oz BMI 28.2 BP 130/70 Blood Pressure Location Lt brachial Position Sitting Pulse 69 Pulse Source Pulse Oximeter Pulse Oximetry (%) 95 Oxygen Delivery Method Room Air Intake Visit Reasons: f/u hypertension, diabetes and chronic conditions Intake Note: Patient is here for follow up on hypertension, diabetes, and chronic conditions. Allergies latex [LATEX] Allergy (Intermediate, Verified 11/09/23 11:30) ITCHING pineapple [PINEAPPLE] Allergy (Unknown, Verified 11/09/23 11:30) TONGUE SWELLS Tobacco use date assessed: 11/09/23 Fall risk assessment: No Falls in past year Last assessed Fall Risk: 11/09/23 Dental Screening Dental Screen Date: 11/09/23 Did you have a dental visit in the last 12 months?: Yes Did you have a dental problem in the last 6 months where you did not have access to dental care?: No Was dental information given to patient?: Patient declined HPI f/u hypertension, diabetes and chronic conditions HPI Details 88 y/o female presents to f/u hypertensi on, diabetes and chronic conditions. Last A1c 07/20/23 6.5%. A1c today 11/09/23 is 7.4%. Blood pressure today 130/70. She is on losartan 100mg and amlodipine 10mg daily. Bone density test 09/06/23 shows osteoporosis. 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 Sister No problems noted. Son No problems noted. Son No problems noted. Daughter No problems noted. Daughter No problems noted. Social History Housing: Condominium Patient Tobacco Use Status: Never used Tobacco e-Cigarette/Vaping Use: Never Used Second Hand Smoke Exposure: No Advance Directives Date on File: 06/10/20 service: No Current occupational status: retired Current occupational exposures/hazards: No Cognitive needs: No Hearing needs: No Vision needs: No Questionnaire PHQ-9 Over the last 2 weeks, how often have you been bothered by any of the following problems? 1. Little interest or pleasure in doing things: not at all 2. Feeling down, depressed, or hopeless: not at all 3. Trouble falling or staying asleep, or sleeping too much: not at all 4. Feeling tired or having little energy: not at all 5. Poor appetite or overeating: not at all 6. Feeling bad about yourself - or that you are a failure or have let yourself or your family down: not at all 7. Trouble concentrating on things, such as reading the newspaper or watching television: not at all 8. Moving or speaking so slowly that other people could have noticed. Or the o pposite - being so fidgety or restless that you have been moving around a lot more than usual: not at all 9. Thoughts that you would be better off or of hurting yourself in some way: not at all Total score: 0 Depression Screening Interpretation: Negative Depression Screening Done: Yes Source: Developed by Drs. Ace Cooper, Sophie Woody, Man Cerna and colleagues, with an educational shannan from [employer]. Thrive Questionnaire Date Thrive assessed: 11/09/23 I am a: Patient What is your living situation today?: I have a steady place to live Within the past 12 months, did the food you bought not last and you didn't have the money to get more?: Never true Within the past 12 months, did you worry whether your food would run out before you got money to buy more?: Never true Do you have trouble paying for medicines?: No Do you have trouble getting transportation to medical appointments?: No Do you have trouble paying your heating and electricity bill?: No Do you have trouble taking care of your child, family member or friend?: No Do you have trouble with day-to-day activities such as bathing, preparing meals, shopping, managing finances, etc.?: No Are you currently unemployed and looking for a job?: No Are you interested in more education?: No THRIVE Score: 0 AUDIT C Alcohol Use Questionnaire (AUDIT-C) 1. How often do you have a drink containing alcohol?: Never 3. How often do you have six or more drinks on one occasion?: Never Total Score: 0 JUAN LUIS-7 AMB Questionnaire JUAN LUIS-7 Date JUAN LUIS - 7 assessed: 11/09/23 Feeling nervous, anxious, or on edge: 0 = Not at all Not being able to stop or control worryin = Not at all Worrying too much about different things: 0 = Not at all Trouble relaxin = Not at all Being so restless that it is hard to sit still: 0 = Not at all Becoming easily annoyed or irritable: 0 = Not at all Feeling afraid as if something awful might happen: 0 = Not at all Total JUAN LUIS-7 score (0-4 normal; 5-9 mild; 10-14 moderate; 15-21 severe): 0 Source: Developed by Drs. Ace Cooper, Sophie Woody, Man Cerna and colleagues, with an educational shannan from [employer]. Review of Systems Const Denies chills, Denies fatigue, Denies fever(s), Denies headache(s) and Denies weakness ENT Denies dizziness and Denies headache(s) Card Denies dyspnea Resp Denies cough, Denies dyspnea, Denies wheezing and Denies other (shortness of breath) Musc Denies numbness and Denies tingling Neuro Denies dizziness, Denies headache(s), Denies numbness, Denies tingling and Denies weakness Psych Denies anxiety and Denies depression Endo Denies fatigue Aller/Immun Denies wheezing Physical exam (Primary Care) Vital Signs: Last Vital Signs Pulse 69 11/09/23 11:26 BP 130/70 11/09/23 11:26 Pulse Ox 95 11/09/23 11:26 Oxygen Delivery Method Room Air 11/09/23 11:26 BMI result Body Mass Index 28.2 Tobacco/Smoking Status: Tobacco use Status Tobacco use date assessed 11/09/23 11/09/23 11:33 Patient Tobacco Use Status Never used Tobacco 11/09/23 11:33 e-Cigarette/Vaping Use Never Used 11/09/23 11:33 PHQ-9: PHQ-9 Score PHQ-9: Total score 0 11/09/23 12:01 Depression Screening Interpretation: Negative Thrive Assessment: Date of Thrive Assessment Date Thrive assessed 11/09/23 11/09/23 11:33 Const General: well developed; No acute distress Nutritional Appearance: well nourished Orientation/consciousness: patient oriented x3 HENMT Head: Yes normocephalic and Yes atraumatic Eyes General: appearance normal, both eyes and all related structures Pupils: Equal, round and reactive pupils present EOM: EOMs intact bilaterally Resp Effort & Inspection: normal respiratory effort Auscultation: clear to auscultation bilaterally Cardio Rate: regular rate Rhythm: regular rhythm Heart sounds: S1 normal heart sound present, S2 normal heart sound present, no gallops, no murmurs and no rubs Neuro General: patient oriented x3 and gait normal Cranial nerves: Yes Equal, round and reactive pupils present Psych Affect: normal affect Results AMB Hemoglobin A1c AMB Hemoglobin A1c 7.4 % Last Edit by Winnie Villarreal CMA on 11/09/23 11:50 Results Reviewed Results Reviewed: Laboratory Last Values Hgb A1c (Clinic) 7.4 % (4.0-6.0) H 11/09/23 11:46 Assessment and Plan Assessment & Plan (1) Essential hypertension: Code(s): I10 - Essential (primary) hypertension Plan: Blood?pressure?is?well?controlled.??Goal?is?less?than?130/80 Continue?current?medication?regimen (2) Diabetes type 2, controlled: Code(s): E11.9 - Type 2 diabetes mellitus without complications Plan: A1c?climbed?from?6.5%?to?7.4%.??Suboptimal?control.??Goal?is?less?than?7.0% Patient?wants?to?continue?current?medication?regimen?and?she?will?work?on?decrea sing?sugars?and?starches?including?frequent?sweet?tea?drink Continue?weight?loss Encouraged?exercise We?discussed?that?if?A1c?is?not?in?controlled?range?at?next?visit,?we?should?adj ust?her?glipizide?ER?to?20?mg?daily (3) Coronary artery disease: Code(s): I25.10 - Atherosclerotic heart disease of [place] coronary artery without angina pectoris Plan: Stable Follow-up?with?Cardiology?as?recommended (4) Hyperkalemia: Code(s): E87.5 - Hyperkalemia Plan: Mild?hyperkalemia. Prior?lab?work?has?not?shown?elevated?potassium?levels.??She?is?on?losartan. Hydrate?well. Avoid?high?potassium?foods We?can?follow-up?with?her?next?blood?draw Orders: Orders AMB Hemoglobin A1c Today Z13.9 - Encounter for screening, unspecified Coding Level of Care Code Est Pt Level 4 (05787) Diagnoses Essential hypertension I10 Diabetes type 2, controlled E11.9 Coronary artery disease I25.10 Hyperkalemia E87.5
== END 2023-11-09 13:02 | disposition home or self-care (01) ==
PROVIDERS: PCP Family Medicine; Visit Provider Family Medicine
DX: I10 Essential (primary) hypertension (principal); E11.9 Type 2 diabetes mellitus without complications; I25.10 Atherosclerotic heart disease of native coronary artery without angina pectoris; E87.5 Hyperkalemia
CPT/HCPCS: 83036; 99214

== ENCOUNTER 2024-02-15 10:56 | Outpatient (AMB) | payer MEDICARE, SELFPAY ==
--- NOTE | 2024-02-15 11:03 | MHC.PC.OV ---
Vital Signs 02/15/24 11:10 Height 4 ft 11 in Weight 138 lb BMI 27.9 BP 136/62 Blood Pressure Location Lt brachial Position Sitting Pulse 67 Pulse Source Pulse Oximeter Pulse Oximetry (%) 99 Oxygen Delivery Method Room Air Intake Visit Reasons: f/u diabetes, hypertension Intake Note: Patient is here today to follow up on diabetes and hypertension. Patient states that she can't hear too well out of both ears. Allergies latex [LATEX] Allergy (Intermediate, Verified 02/15/24 11:11) ITCHING pineapple [PINEAPPLE] Allergy (Unknown, Verified 02/15/24 11:11) TONGUE SWELLS Medication List - Last Reconciled 02/15/24 by Maycol Yan MD amlodipine 10 mg PO DAILY aspirin 81 mg PO DAILY atorvastatin 40 mg PO DAILY clobetasol 0.05% 1 appl topical BID 2 weeks glipizide ER 10 mg PO DAILY 90 days hydralazine 12.5 mg (1/2 x 25 mg) PO BID losartan 100 mg PO DAILY 90 days metformin 1,000 mg PO BID 90 days miscellaneous medical supply Diabetic shoes, Daily As directed, 999 days Tobacco use date assessed: 11/09/23 Fall risk assessment: No Falls in past year Last assessed Fall Risk: 02/15/24 Dental Screening Dental Screen Date: 11/09/23 HPI f/u diabetes, hypertension HPI Details 88 y/o female presents to f/u diabetes, hypertension. Last A1c 11/09/23 7.4%. A1c today 02/15/24 is 6.7%. Bone density test 09/06/23 showed osteoporosis. Blood pressure today 136/62. She is on amlodipine 10mg, losatan 100mg, hydralazine 12.5mg b.i.d. Has complaints of bilateral cerumen impaction. 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 Sister No problems noted. Son No problems noted. Son No problems noted. Daughter No problems noted. Daughter No problems noted. Social History Housing: Condominium Patient Tobacco Use Status: Never used Tobacco e-Cigarette/Vaping Use: Never Used Second Hand Smoke Exposure: No Advance Directives Date on File: 06/10/20 service: No Current occupational status: retired Current occupational exposures/hazards: No Cognitive needs: No Hearing needs: No Vision needs: No Questionnaire Thrive Questionnaire Date Thrive assessed: 11/09/23 JUAN LUIS-7 AMB Questionnaire JUAN LUIS-7 Date JUAN LUIS - 7 assessed: 11/09/23 Source: Developed by Drs. Ace Cooper, Sophie Woody, Man Cerna and colleagues, with an educational shannan from [employer]. Review of Systems Const Denies chills, Denies fatigue, Denies fever(s), Denies headache(s) and Denies weakness ENT Denies dizziness and Denies headache(s) Card Denies dyspnea Resp Denies cough, Denies dyspnea, Denies wheezing and Denies other (shortness of breath) Musc Denies numbness and Denies tingling Neuro Denies dizziness, Denies headache(s), Denies numbness, Denies tingling and Denies weakness Psych Denies anxiety and Denies depression Endo Denies fatigue Aller/Immun Denies wheezing Physical exam (Primary Care) Vital Signs: Last Vital Signs Pulse 67 02/15/24 11:10 BP 136/62 02/15/24 11:10 Pulse Ox 99 02/15/24 11:10 Oxygen Delivery Method Room Air 02/15/24 11:10 BMI result Body Mass Index 27.9 Tobacco/Smoking Status: Tobacco use Status Tobacco use date assessed 11/09/23 02/15/24 11:03 Patient Tobacco Use Status Never used Tobacco 02/15/24 11:03 e-Cigarette/Vaping Use Never Used 02/15/24 11:03 Thrive Assessment: Date of Thrive Assessment Date Thrive assessed 11/09/23 02/15/24 11:03 Const General: well developed; No acute distress Nutritional Appearance: well nourished Orientation/consciousness: patient oriented x3 HENMT Head: Yes normocephalic and Yes atraumatic Eyes General: appearance normal, both eyes and all related structures Pupils: Equal, round and reactive pupils present EOM: EOMs intact bilaterally Resp Effort & Inspection: normal respiratory effort Neuro General: patient oriented x3 and gait normal Cranial nerves: Yes Equal, round and reactive pupils present Psych Affect: normal affect Assessment and Plan Assessment & Plan (1) Diabetes type 2, controlled: Code(s): E11.9 - Type 2 diabetes mellitus without complications Plan: A1c?at?6.7%.??Had?risen?above?7.0%?at?last?visit?and?she?wanted?to?trial?improve?lifestyle?changes.??Now?at?goal?again; less?than?7.0% Continue?current?medication?regimen Continue?diabetic?diet,?exercise?and?weight?control. (2) Essential hypertension: Code(s): I10 - Essential (primary) hypertension Plan: Fair?blood?pressure?control.??Goal?is?less?than?130/80 No?medication?changes?today Watch?salt/sodium?and?encouraged?exercise?and?weight?control (3) Coronary artery disease: Code(s): I25.10 - Atherosclerotic heart disease of [place] coronary artery without angina pectoris Plan: Stable (4) Osteoporosis: Code(s): M81.0 - Age-related osteoporosis without current pathological fracture Plan: Bone?density?test?shows?osteoporosis Discussed?bisphosphonate?therapy?and?patient?would?like?to?hold?off?on?this?for?now. Encouraged?good?sources?of?calcium?and?vitamin-D Will?check?vitamin-D?level?prior?to?next?visit Also?advised?weight-bearing?exercise Will?readdress?bisphosphonates?and?next?visit (5) Cerumen impaction: Code(s): H61.20 - Impacted cerumen, unspecified ear Plan: Bilateral?cerumen?impactions?and?patient?does?use?Q-tips Recommended?against?that S/p?Irrigation: ?Right?ear?is?clear?of?cerumen. Left?ear?with?mild?impaction - she?will?use?Debrox?drops-sent Orders: Orders AMB Hemoglobin A1c Today Z13.9 - Encounter for screening, unspecified Medications: New carbamide peroxide 6.5% (Debrox) 5 drps otic (ears) Q12H 15 mL 0RF 4 days Coding Level of Care Code Est Pt Level 4 (70568) Diagnoses Diabetes type 2, controlled E11.9 Essential hypertension I10 Coronary artery disease I25.10 Osteoporosis M81.0 Cerumen impaction H61.20
[2024-02-15 11:10] VITALS: BP 136/62; PULSE 67; O2SAT 99; BMI 27.9
== END 2024-02-15 12:36 | disposition home or self-care (01) ==
PROVIDERS: PCP Family Medicine; Visit Provider Family Medicine
DX: E11.9 Type 2 diabetes mellitus without complications (principal)
CPT/HCPCS: 83036; 99214

== ENCOUNTER 2024-06-18 15:57 | Outpatient (AMB) | payer MEDICARE, SELFPAY ==
--- NOTE | 2024-06-18 16:36 | A.OFFPC_ITS ---
Vital Signs 06/18/24 16:40 06/18/24 16:43 Height 4 ft 11 in Weight 140 lb BMI 28.3 BP 160/70 H 154/67 H Blood Pressure Location Lt brachial Lt brachial Position Sitting Sitting Respiration 16 Pulse 63 Pulse Source Pulse Oximeter Temp 98.1 F Temp Source Temporal Artery Scan Pulse Oximetry (%) 95 Oxygen Delivery Method Room Air Intake Visit Reasons: fu hypertension and diabetes Intake Note: F/U HTN and DM Allergies latex [LATEX] Allergy (Intermediate, Verified 06/18/24 16:38) ITCHING pineapple [PINEAPPLE] Allergy (Unknown, Verified 06/18/24 16:38) TONGUE SWELLS Tobacco use date assessed: 11/09/23 Dental Screening Dental Screen Date: 11/09/23 HPI fu hypertension and diabetes HPI Details 89 y/o female presents to f/u hypertensi on, diabetes. A1c today 06/18/24 6.3%. She is on metformin 1000mg b.i.d, glipizide 10mg daily. Blood pressure today 160/70, 63p. She is on losartan 100mg daily, hydralazine 12.5mg b.i.d, amlodipine 10mg daily. Pt has not taken her afternoon dose of hydralazine yet. She notes blood pressure at home have been fine. HPI Comments History of Present Illness Details Documentation assistance for Maycol Yan MD, was provided by Bronson Vasquez, Electric [employer] on 06/18/2024 at 5:01 PM EST. I, Dr. Yan, have read, observed, and verified documentation. 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 Sister No problems noted. Son No problems noted. Son No problems noted. Daughter No problems noted. Daughter No problems noted. [facility] Patient Tobacco Use Status: Never used Tobacco e-Cigarette/Vaping Use: Never Used Second Hand Smoke Exposure: No Advance Directives Date on File: 06/10/20 service: No Current occupational status: retired Current occupational exposures/hazards: No Cognitive needs: No Hearing needs: No Vision needs: No Questionnaire PHQ-9 Over the last 2 weeks, how often have you been bothered by any of the following problems? 1. Little interest or pleasure in doing things: not at all 2. Feeling down, depressed, or hopeless: not at all 3. Trouble falling or staying asleep, or sleeping too much: not at all 4. Feeling tired or having little energy: not at all 5. Poor appetite or overeating: not at all 6. Feeling bad about yourself - or that you are a failure or have let yourself or your family down: not at all 7. Trouble concentrating on things, such as reading the newspaper or watching television: not at all 8. Moving or speaking so slowly that other people could have noticed. Or the opposite - being so fidgety or restless that you have been moving around a lot more than usual: not at all 9. Thoughts that you would be better off or of hurting yourself in some way: not at all Total score: 0 Source: Developed by Drs. Ace Cooper, Sophie Woody, Man Cerna and colleagues, with an educational shannan from [employer]. Thrive Questionnaire Date Thrive assessed: 11/09/23 I am a: Patient What is your living situation today?: I have a steady place to live Within the past 12 months, did the food you bought not last and you didn't have the money to get more?: Never true Within the past 12 months, did you worry whether your food would run out before you got money to buy more?: Never true Do you have trouble paying for medicines?: No Do you have trouble getting transportation to medical appointments?: No Do you have trouble paying your heating and electricity bill?: No Do you have trouble taking care of your child, family member or friend?: No Do you have trouble with day-to-day activities such as bathing, preparing meals, shopping, managing finances, etc.?: No Are you currently unemployed and looking for a job?: No Are you interested in more education?: No Please select the resources that you would like help with: None Currently or been in a relationship where the following occur: No concerns reported THRIVE Score: 0 AUDIT C Alcohol Use Questionnaire (AUDIT-C) 1. How often do you have a drink containing alcohol?: Never Total Score: 0 JUAN LUIS-7 AMB Questionnaire JUAN LUIS-7 Date JUAN LUIS - 7 assessed: 11/09/23 Feeling nervous, anxious, or on edge: 0 = Not at all Not being able to stop or control worryin = Not at all Worrying too much about different things: 0 = Not at all Trouble relaxin = Not at all Being so restless that it is hard to sit still: 0 = Not at all Becoming easily annoyed or irritable: 0 = Not at all Feeling afraid as if something awful might happen: 0 = Not at all Total JUAN LUIS-7 score (0-4 normal; 5-9 mild; 10-14 moderate; 15-21 severe): 0 Source: Developed by Drs. Ace Cooper, Sophie Woody, Man Cerna and colleagues, with an educational shannan from [employer]. Review of Systems Const Denies chills, Denies fatigue, Denies fever(s), Denies headache(s) and Denies weakness ENT Denies dizziness and Denies headache(s) Card Denies dyspnea Resp Denies cough, Denies dyspnea, Denies wheezing and Denies other (shortness of breath) Musc Denies numbness and Denies tingling Neuro Denies dizziness, Denies headache(s), Denies numbness, Denies tingling and Denies weakness Psych Denies anxiety and Denies depression Endo Denies fatigue Aller/Immun Denies wheezing Physical exam (Primary Care) Vital Signs: Last Vital Signs Temp 98.1 F 06/18/24 16:40 Pulse 63 06/18/24 16:40 Resp 16 06/18/24 16:40 BP 154/67 H 06/18/24 16:43 Pulse Ox 95 06/18/24 16:40 Oxygen Delivery Method Room Air 06/18/24 16:40 BMI result Body Mass Index 28.3 Tobacco/Smoking Status: Tobacco use Status Tobacco use date assessed 11/09/23 06/18/24 16:36 Patient Tobacco Use Status Never used Tobacco 06/18/24 16:36 e-Cigarette/Vaping Use Never Used 06/18/24 16:36 PHQ-9: PHQ-9 Score PHQ-9: Total score 0 06/18/24 17:01 Thrive Assessment: Date of Thrive Assessment Date Thrive assessed 11/09/23 06/18/24 16:36 Currently or been in a relationship where the following occur: No concerns reported Const General: well developed; No acute distress Nutritional Appearance: well nourished Orientation/consciousness: patient oriented x3 HENMT Head: Yes normocephalic and Yes atraumatic Eyes General: appearance normal, both eyes and all related structures Pupils: Equal, round and reactive pupils present EOM: EOMs intact bilaterally Resp Effort & Inspection: normal respiratory effort Auscultation: clear to auscultation bilaterally Cardio Rate: regular rate Rhythm: regular rhythm Heart sounds: S1 normal heart sound present, S2 normal heart sound present, no gallops, no murmurs and no rubs Neuro General: patient oriented x3 and gait normal Cranial nerves: Yes Equal, round and reactive pupils present Psych Affect: normal affect Results AMB Hemoglobin A1c AMB Hemoglobin A1c 6.3 % Last Edit by RAMA Pop on 06/18/24 16:55 Results Reviewed Results Reviewed: Laboratory Last Values Hgb A1c (Clinic) 6.3 % (4.0-6.0) H 06/18/24 16:53 Coding Level of Care Code Est Pt Level 4 (09892) Diagnoses Essential hypertension I10 Coronary artery disease I25.10 Diabetes type 2, controlled E11.9 Low vitamin D level R79.89 Osteoporosis M81.0 Assessment & Plan Assessment & Plan (1) Essential hypertension: Code(s): I10 - Essential (primary) hypertension Category: Medical Plan: Blood?pressure?is?elevated?in?the?office?today?but?patient?has?not?taken?her?[place]?dose?of?hydralazine?yet. She?checks?her?blood?pressures?at?home?and?they?are?well?controlled .??Prior?blood?pressures?before?today?were?controlled. Continue?current?medication?regimen.??Check?blood?pressures?at?home Call?or?return?to?office?if?not?well?controlled. (2) Coronary artery disease: Code(s): I25.10 - Atherosclerotic heart disease of [place] coronary artery without angina pectoris Category: Medical Plan: Stable (3) Diabetes type 2, controlled: Code(s): E11.9 - Type 2 diabetes mellitus without complications Category: Medical Plan: A1c?is?improved?and?now?6.3%.??Goal?is?less?than?7.0%.??Controlled Continue?current?medication (4) Low vitamin D level: Code(s): R79.89 - Other specified abnormal findings of blood chemistry Category: Medical Plan: Check?vitamin-D (5) Osteoporosis: Code(s): M81.0 - Age-related osteoporosis without current pathological fracture Category: Medical Plan: Patient?declines?treatment Checking?vitamin-D?level?and?encouraged?good?sources?of?calcium We?can?follow-up?at?next?visit Orders: Orders AMB Hemoglobin A1c Today E11.9 - Type 2 diabetes mellitus without complications Vitamin D 25-OH Total Today E55.9 - Vitamin D deficiency, unspecified, R79.89 - Other specified abnormal findings of blood chemistry Comprehensive Met. Panel Today R79.89 - Other specified abnormal findings of blood chemistry
[2024-06-18 16:40] VITALS: BP 160/70; PULSE 63; RESP 16; TEMP 36.7; O2SAT 95; BMI 28.3
[2024-06-18 16:43] VITALS: BP 154/67
== END 2024-06-18 17:13 | disposition home or self-care (01) ==
PROVIDERS: PCP Family Medicine; Visit Provider Family Medicine
DX: I10 Essential (primary) hypertension (principal); I25.10 Atherosclerotic heart disease of native coronary artery without angina pectoris; E11.9 Type 2 diabetes mellitus without complications; R79.89 Other specified abnormal findings of blood chemistry; M81.0 Age-related osteoporosis without current pathological fracture

== ENCOUNTER → 2024-06-18 15:57 | Outpatient (BNVA) | payer MEDICARE, SELFPAY | PROVIDERS: PCP Family Medicine; Visit Provider Family Medicine | DX: I10 Essential (primary) hypertension (principal); I25.10 Atherosclerotic heart disease of native coronary artery without angina pectoris; E11.9 Type 2 diabetes mellitus without complications; R79.89 Other specified abnormal findings of blood chemistry; M81.0 Age-related osteoporosis without current pathological fracture | CPT/HCPCS: 83036; 96127; 99212 ==

== ENCOUNTER 2024-09-10 13:41 | Outpatient (AMB) | payer MEDICARE, SELFPAY ==
[2024-09-10 13:44] VITALS: BP 110/70; PULSE 68; BMI 28.9
--- NOTE | 2024-09-10 13:44 | MHC.OFFVIS ---
Vital Signs 09/10/24 13:44 Height 4 ft 11 in Weight 143 lb 4.807 oz BMI 28.9 BP 110/70 Blood Pressure Location Lt brachial Position Sitting Pulse 68 Intake Visit Reasons: 1 year f/u Intake Note: 1 year follow-up with ekg feeling good Relay Dispatcher Required: No Allergies latex [LATEX] Allergy (Intermediate, Verified 06/18/24 16:38) ITCHING pineapple [PINEAPPLE] Allergy (Unknown, Verified 06/18/24 16:38) TONGUE SWELLS Medication List - Last Reconciled 09/10/24 by Nico Sanchez MD amlodipine 10 mg PO DAILY aspirin 81 mg PO DAILY atorvastatin 40 mg PO DAILY clobetasol 0.05% 1 appl topical BID 2 weeks glipizide ER 10 mg PO DAILY 90 days hydralazine 12.5 mg (1/2 x 25 mg) PO BID losartan 100 mg PO DAILY 90 days metformin 1,000 mg PO BID 90 days miscellaneous medical supply Diabetic shoes, Daily As directed, 999 days HPI Comments Details: Candace comes for follow-up. She has been doing well from cardiac perspective. Denies any exertional chest pain or shortness of breath. Remains active. Denies any heart failure symptoms. Denies any prolonged palpitation irregular heartbeat. Occasionally gets left-sided chest pain mostly at rest which lasts less than a minute, not provoked by any exertion or stress. Symptoms resolved by itself. 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 Sister No problems noted. Son No problems noted. Son No problems noted. Daughter No problems noted. Daughter No problems noted. [facility] Tobacco Use Status: Never used Tobacco e-Cigarette/Vaping Use: Never Used Second Hand Smoke Exposure: No Advance Directives Date on File: 06/10/20 service: No Current occupational status: retired Current occupational exposures/hazards: No Cognitive needs: No Hearing needs: No Vision needs: No Review of Systems Const Denies chills, Denies fatigue, Denies fever(s), Denies frequent falls, Denies weakness, Denies weight gain and Denies weight loss ENT Denies dizziness Card Denies chest pain, Denies leg edema, Denies lightheadedness, Denies palpitations, Denies dyspnea, Denies dyspnea on exertion, Denies orthopnea and Denies other (loss of consciousness) Resp Denies cough, Denies dyspnea and Denies dyspnea on exertion GI Denies hematochezia and Denies change in stool character Musc Denies abnormal gait, Denies muscle weakness, Denies numbness, Denies radiating pain into limb and Denies tingling Neuro Denies abnormal gait, Denies dizziness, Denies frequent falls, Denies numbness, Denies tingling and Denies weakness Endo Denies fatigue and Denies palpitations Physical Exam Vital Signs: Last Vital Signs Pulse 68 09/10/24 13:44 BP 110/70 09/10/24 13:44 BMI result Body Mass Index 28.9 Const General: cooperative, comfortable, alert, awake, Physically active and well groomed Nutritional Appearance: overweight Orientation/consciousness: patient oriented x3 Limitations: no limitations Neck Neck: Yes trachea midline, Yes supple and Yes no JVD Chest Chest palpation & inspection: other (Mild keloid formation at the lower end of the sternotomy scar with no infec) Resp Effort & Inspection: normal respiratory effort Auscultation: clear to auscultation bilaterally Cardio Jugular venous distension: no JVD Palpation: normal PMI Rate: regular rate Heart sounds: S1 normal heart sound present, S2 normal heart sound present, no click, no gallops, Murmur heart sound present systolic early and Other heart sounds present (S4 present) GI Auscultation: normal bowel sounds Skin General skin exam: no rashes or lesions noted and ecchymosis Neuro General: patient oriented x3 and no focal motor deficits Extrem General: Yes no clubbing, cyanosis or edema Office Procedures EKG Details: EKG shows normal sinus rhythm with rightward axis with septal QS pattern [id number], Complete Assessment & Plan Assessment & Plan (1) Coronary artery disease: Code(s): I25.10 - Atherosclerotic heart disease of [place] coronary artery without angina pectoris Category: Medical Plan: CAD with remote coronary artery bypass grafting without any concerning symptoms. Her left-sided chest pain syndrome at rest appears to be atypical and noncardiac in nature. Advised to call me with change in the pattern of her symptoms. Continue aggressive risk factor modification. Continue low-dose aspirin therapy. Continue high-intensity statin therapy with target goal LDL less than 70 mg/dL. Hemoglobin A1c under 7%, being pursue through your office. Advised aggressive blood pressure control which is currently well optimized. Target goal blood pressure less than 130/84. Continue current therapy. (2) Aortic stenosis: Code(s): I35.0 - Nonrheumatic aortic (valve) stenosis Category: Medical Plan: Aortic stenosis which is mild clinically still appears to be monitored. Follow-up echocardiogram next year. Continue aggressive vascular risk factor modification above. No interventions required. Will follow up in the clinic in 1 year's time, sooner p.r.n.. Thank you for allowing me to partake in her care Coding Level of Care Code Est Pt Level 4 (65629) Complex EM visit Add On G2211 Diagnoses Coronary artery disease I25.10 Aortic stenosis I35.0 CPT Codes EKG - CPT: 96758-[id number], Complete ([id number])
== END 2024-09-10 14:09 | disposition home or self-care (01) ==
PROVIDERS: PCP Family Medicine; Visit Provider Internal Medicine Cardiovascular Disease
DX: I25.10 Atherosclerotic heart disease of native coronary artery without angina pectoris (principal); I35.0 Nonrheumatic aortic (valve) stenosis
CPT/HCPCS: 93010; 99214; G2211

== ENCOUNTER → 2024-09-10 13:41 | Outpatient (BNVA) | payer MEDICARE, SELFPAY | PROVIDERS: PCP Family Medicine; Visit Provider Internal Medicine Cardiovascular Disease | DX: I25.10 Atherosclerotic heart disease of native coronary artery without angina pectoris (principal); I35.0 Nonrheumatic aortic (valve) stenosis | CPT/HCPCS: 93005; 99212 ==

== ENCOUNTER 2024-10-02 09:51 | Outpatient (REF) | payer MEDICARE, SELFPAY ==
--- OUTSIDE RECORDS SUMMARY | 2024-10-02 11:36 | XMS_ITS | Patient Health Record ---
Author Organization [facility] brayan OvalleBarry Address [address] [place] [address] Care Team Providers Care Brim Presser Name Role Phone Maycol Yan MD Primary Care Provider Tony Ambrose Unavailable [phone] Allergies Allergen (clinical drug ingredient) Drug/Non Drug Allergy documented on EMR Reaction Allergy Type Onset Date Status Pineapple Concentrate Unknown Drug Allergy Active Adhesive rash Allergy Active Results Component Value Reference Range Notes HEMOGLOBIN A1C (GLYCOHEMOGLO BIN) Reviewed date:12/29/2023 01:55:31 PM Interpretation: Performing Lab: Notes/Report: HEMOGLOBIN A1C % (HH) 6.7 Reason For Referral No Information Medications Medication SIG (Take, Route, Frequency, Duration) Notes Start Date End Date Status Eucerin . as directed Externally Apply Twice a day to Feet for 30 days 09/15/2017 Active Diovan Not-Taking Lasix Not-Taking Aspir-81 Active Furosemide 20 MG Orally Once a day Not-Taking Nightsplint . . . . for 30 days Active Losartan Potassium 50 MG Orally Once a day Not-Taking Extra Depth Orthopedic Shoes, (1) Pair With (3) Pair Custom Heat Molded Multidensity Innersoles Dx: NIDDM/PVD(E11.51), Hammertoe Foot Deformity(M20.41,M20. 42), Preulcerative Skin Lesion(s)(L85.1) Wear Daily for 365 days 12/29/2023 Active hydroCHLOROthiazide 25 mg Not-Taking Clopidogrel Bisulfate Not-Taking metFORMIN HCl 1000 MG Orally twice a day Active Losartan Potassium 5mg A ctive Hydralazine-HCTZ Act cesia glipiZIDE 5 MG as directed Orally Active Lisinopril 30 mg daily Not -Taking amLODIPine Besylate 10 MG 1 tablet Orally Active Atorvastatin Calcium 40 MG as directed Orally Active Carvedilol 12.5 MG Orally BID Not-Taking Immunizations Vaccine Route Administration Date Status Comme nts COVID-19 Pfizer BioNTech Vaccine Unknown 07/14/2021 Administered 1st 11/26/2020 2nd 12/19/2020 Influenza Unknown 09/06/2016 Refused Influenza Unknown 07/05/2022 Administered Pneumococcal Unknown 07/05/2022 Administered Social History Tobacco Use: Social History Observation Description Date Details (start date - stop date) Never Smoker NA - NA Tobacco Use/Smoking Question Answer Notes Are you a: nonsmoker Additional Findings: Tobacco Non-User Aggressive non-smoker Alcohol Screen Question Answer Notes Did you have a drink containing alcohol in the p ast year? No Points 0 Interpretation Negative Tobacco use other than smoking: Question Answer Notes Are you an other tobacco user? No Problems Problem Type SNOMED Code ICD Code Onset Dates Problem Status W/U Status Risk Notes Problem Acquired hammer toe of right foot (34686678386495 05) Other hammer toe(s) (acquired), right foot (M20.41) Active confirmed Response to treatment,I mprovement Problem Type 2 diabetes mellitus with peripheral angiopathy (614214987) Type 2 diabetes mellitus with diabetic peripheral angiopathy without gangrene (E11.51) Active confirmed Problem Acquired hammer toe of left foot (96698669224505 03) Other hammer toe(s) (acquired), left foot (M20.42) Active confirmed Response to treatment,I mprovement Problem Essential hypertension (80302547) Essential hypertension (I10) Active confirmed Vital Signs Blood pressure diastolic 60 mm Hg 08/27/2024 Height 4 ft 11 in in 08/27/2024 Blood pressure systolic 116 mm Hg 08/27/2024 Weight 138 lbs 08/27/2024 BMI 27.87 kg/m2 08/27/2024 Procedures Procedure Date Ordered Date Performed Result Body Sit e 56997-GZIJTEJ NAIL, 6 OR MORE 10/24/2023 N/A 84607-Fkjajgyg Plate 10/24/2023 N/A 77840-VEOP SKIN LESIONS, OVER 4 10/24/2023 N/A 36316-CJXPHMW NAIL, 6 OR MORE 12/29/2023 N/A 69424-Rvyeklwa Plate 12/29/2023 N/A 98861-UBNA SKIN LESIONS, OVER 4 12/29/2023 N/A 57912-QPVLDOL NAIL, 6 OR MORE 03/15/2024 N/A 19574-ITWY SKIN LESIONS, OVER 4 03/15/2024 N/A 83368-TLLCGBE NAIL, 6 OR MORE 05/24/2024 N/A 41020-Tgrtrsbm Plate 05/24/2024 N/A 18359-DBJK SKIN LESIONS, OVER 4 05/24/2024 N/A 36587-UHVDHHO NAIL, 6 OR MORE 08/27/2024 N/A 55346-VCAL SKIN LESIONS, OVER 4 08/27/2024 N/A Encounters Encounter Location Date Provider Diagnosis [address] [address] 10/24/2023 Tony Shinunier Type 2 diabetes mellitus with diabetic peripheral angiopathy without gangrene E11.51 ; Tinea unguium B35.1 ; Pain in right toe(s) M79.674 ; Pain in left toe(s) M79.675 and Ingrown nail L60.[address] [address] 12/29/2023 Tony Mann Type 2 diabetes mellitus with diabetic peripheral angiopathy without gangrene E11.51 ; Tinea unguium B35.1 ; Pain in right toe(s) M79.674 ; Pain in left toe(s) M79.675 ; Ingrown nail L60.0 ; Other hammer toe(s) (acquired), left foot M20.42 and Other hammer toe(s) (acquired), right foot M20.[address] [address] 03/15/2024 Tony Mann Type 2 diabetes mellitus with diabetic peripheral angiopathy without gangrene E11.51 ; Tinea unguium B35.1 ; Pain in right toe(s) M79.674 and Pain in left toe(s) M79.[address] [address] 05/24/2024 Tony Mann Type 2 diabetes mellitus with diabetic peripheral angiopathy without gangrene E11.51 ; Tinea unguium B35.1 ; Pain in right toe(s) M79.674 ; Pain in left toe(s) M79.675 and Ingrown nail L60.0 [facility] [address] [place] [address] 08/27/2024 Tony Mann Type 2 diabetes mellitus with diabetic peripheral angiopathy without gangrene E11.51 ; Tinea unguium B35.1 ; Pain in right toe(s) M79.674 ; Pain in left toe(s) M79.675 ; Other hammer toe(s) (acquired), right foot M20.41 and Other hammer toe(s) (acquired), left foot M20.42 Assessments Encounter Date Diagnosis (ICD Code) Assessment Notes Treatment Notes Treatment Clinical Notes Section Notes 10/24/2023 Type 2 diabetes mellitus with diabetic peripheral angiopathy without gangrene (ICD-10 - E11.51) 10/24/2023 Tinea unguium (ICD-10 - B35.1) 12/29/2023 Type 2 diabetes mellitus with diabetic peripheral angiopathy without gangrene (ICD-10 - E11.51) 03/15/2024 Type 2 diabetes mellitus with diabetic peripheral angiopathy without gangrene (ICD-10 - E11.51) 03/15/2024 Tinea unguium (ICD-10 - B35.1) 05/24/2024 Type 2 diabetes mellitus with diabetic peripheral angiopathy without gangrene (ICD-10 - E11.51) 05/24/2024 Tinea unguium (ICD-10 - B35.1) 08/27/2024 Type 2 diabetes mellitus with diabetic peripheral angiopathy without gangrene (ICD-10 - E11.51) 08/27/2024 Tinea unguium (ICD-10 - B35.1) 05/24/2024 Pain in right toe(s) (ICD-10 - M79.674) 12/29/2023 Tinea unguium (ICD-10 - B35.1) 10/24/2023 Pain in right toe(s) (ICD-10 - M79.674) 03/15/2024 Pain in right toe(s) (ICD-10 - M79.674) 08/27/2024 Pain in right toe(s) (ICD-10 - M79.674) 10/24/2023 Pain in left toe(s) (ICD-10 - M79.675) 03/15/2024 Pain in left toe(s) (ICD-10 - M79.675) 12/29/2023 Pain in right toe(s) (ICD-10 - M79.674) 05/24/2024 Pain in left toe(s) (ICD-10 - M79.675) 08/27/2024 Pain in left toe(s) (ICD-10 - M79.675) 05/24/2024 Ingrown nail (ICD-10 - L60.0) 08/27/2024 Other hammer toe(s) (acquired), right foot (ICD-10 - M20.41) Response to treatment,Impro vement 12/29/2023 Pain in left toe(s) (ICD-10 - M79.675) 10/24/2023 Ingrown nail (ICD-10 - L60.0) 12/29/2023 Ingrown nail (ICD-10 - L60.0) 08/27/2024 Other hammer toe(s) (acquired), left foot (ICD-10 - M20.42) Response to treatment,Impro vement 12/29/2023 Other hammer toe(s) (acquired), left foot (ICD-10 - M20.42) 12/29/2023 Other hammer toe(s) (acquired), right foot (ICD-10 - M20.41) Patient Educated with: DIABETIC FOOT CARE INSTRUCTIONS.p df (DIABETIC FOOT CARE INSTRUCTIONS.p df) Plan Of Treatment Pending Test Test Name Order Date Hemoglobin A1c 06/12/2015 Hemoglobin A1c 02/15/2017 X ray : Foot, right 3V 04/20/2022 X ray : Foot, right 3V 02/14/2023 20041-BEAYLOI NAIL, 6 OR MORE 02/14/2023 39630-OMCMMYZ NAIL, 6 OR MORE 05/09/2023 12294-NECZSNB NAIL, 6 OR MORE 08/01/2023 37279-ILLJPIT NAIL, 6 OR MORE 07/15/2022 06575-STQNERG NAIL, 6 OR MORE 09/23/2022 08691-TMNMYQY NAIL, 6 OR MORE 12/02/2022 99702-VGJAISK NAIL, 6 OR MORE 05/03/2022 83739-ITTAQQY NAIL, 6 OR MORE 02/15/2022 49646-KFADQFZ NAIL, 6 OR MORE 07/06/2021 02150-SYAXXZW NAIL, 6 OR MORE 11/23/2021 83488-LIKVGIA NAIL, 6 OR MORE 05/24/2024 47577-GJFZJKL NAIL, 6 OR MORE 08/27/2024 44730-BOYCVYL NAIL, 6 OR MORE 10/24/2023 42486-BWTMUZD NAIL, 6 OR MORE 12/29/2023 07107-DZENLJJ NAIL, 6 OR MORE 03/15/2024 93226-FMYRWSS NAIL, 6 OR MORE 09/18/2015 72229-RMIAWVX NAIL, 6 OR MORE 12/01/2015 56617-HCDCQRZ NAIL, 6 OR MORE 03/01/2016 64335-KKXGTUE NAIL, 6 OR MORE 06/03/2016 80552-PPHSMHO NAIL, 6 OR MORE 09/06/2016 27195-YECWIYP NAIL, 6 OR MORE 12/06/2016 38510-OMAYMZK NAIL, 6 OR MORE 09/26/2014 33193-HRGRUHO NAIL, 6 OR MORE 12/19/2014 58118-XRQJZEI NAIL, 6 OR MORE 02/27/2015 72318-GDSBCKI NAIL, 6 OR MORE 06/12/2015 47706-KNWFYVN NAIL, 6 OR MORE 05/17/2011 27496-XAMAGFX NAIL, 6 OR MORE 08/02/2011 94421-RNEYFJE NAIL, 6 OR MORE 10/11/2011 98957-QKQSDBA NAIL, 6 OR MORE 01/10/2012 15138-GLQICWN NAIL, 6 OR MORE 05/08/2012 58323-MTLWACT NAIL, 6 OR MORE 08/07/2012 88906-NFMMAAX NAIL, 6 OR MORE 11/27/2012 62158-XHTQILT NAIL, 6 OR MORE 02/08/2013 32057-DZBGEXO NAIL, 6 OR MORE 05/31/2013 75273-AQFMBZM NAIL, 6 OR MORE 08/06/2013 43271-MQTRPKC NAIL, 6 OR MORE 10/25/2013 77951-CUPTYUN NAIL, 6 OR MORE 01/03/2014 85900-GYOCYQV NAIL, 6 OR MORE 04/04/2014 34106-CGILOGF NAIL, 6 OR MORE 06/24/2014 43368-QKYKXXM NAIL, 6 OR MORE 03/10/2017 86091-UMJYONU NAIL, 6 OR MORE 06/16/2017 97842-NDURUPW NAIL, 6 OR MORE 09/15/2017 85748-LEOVPZV NAIL, 6 OR MORE 12/15/2017 17138-GKTUQVH NAIL, 6 OR MORE 03/09/2018 09044-AALVCYB NAIL, 6 OR MORE 06/08/2018 70599-DOZYFDW NAIL, 6 OR MORE 09/21/2018 84033-AVQUIZD NAIL, 6 OR MORE 12/21/2018 08031-BEMGXRY NAIL, 6 OR MORE 03/22/2019 88610-WSTDSJT NAIL, 6 OR MORE 06/21/2019 91858-NNYALMU NAIL, 6 OR MORE 10/04/2019 37427-MLXRJFN NAIL, 6 OR MORE 01/17/2020 39498-IRYAZRX NAIL, 6 OR MORE 04/10/2020 23767-INJAHQB NAIL, 6 OR MORE 07/14/2020 56857-JLBYZNW NAIL, 6 OR MORE 10/13/2020 58267-FJKBRKU NAIL, 6 OR MORE 01/05/2021 42557-MUTZKUF NAIL, 6 OR MORE 04/06/2021 04428-Rnuieczo Plate 04/06/2021 59577-Tsaaijoq Plate 01/05/2021 61653-Kpxzseqm Plate 10/13/2020 08571-Npsshqzo Plate 07/14/2020 53559-Vmybywvf Plate 04/10/2020 68988-Qqulhznk Plate 01/17/2020 87225-Jtslalxy Plate 10/04/2019 72810-Vtlwfkvu Plate 06/21/2019 31571-Wakpeefb Plate 03/22/2019 76784-Gxfldqqc Plate 12/21/2018 64752-Qhdizjlu Plate 06/08/2018 08952-Xisgvdgo Plate 03/09/2018 66642-Tmvgfsip Plate 12/15/2017 95995-Iddidvtf Plate 09/15/2017 86241-Ctmixgni Plate 06/16/2017 02451-Ggbijyoz Plate 03/10/2017 25574-Jusxbkmn Plate 06/24/2014 29666-Ngvryccm Plate 04/04/2014 27168-Atuiyrrv Plate 01/03/2014 12323-Xkzpoefo Plate 10/25/2013 04950-Wczuaitf Plate 08/06/2013 40831-Aqebibcy Plate 05/31/2013 71211-Cnroclyv Plate 02/08/2013 53205-Tkuuodkp Plate 11/27/2012 95154-Vdfdapfx Plate 08/07/2012 76900-Tuklqczz Plate 05/08/2012 50292-Zjrafamb Plate 01/10/2012 12835-Dhxxpvyr Plate 08/02/2011 35887-Ftlokovd Plate 10/11/2011 27182-Siebxjkc Plate 05/17/2011 33484-Fjhjezjz Plate 06/12/2015 40960-Psveaifj Plate 02/27/2015 65540-Lazvhnoc Plate 12/19/2014 68408-Pwodwbdg Plate 09/26/2014 63421-Gaeaznlz Plate 12/06/2016 16191-Nvdeaaob Plate 09/06/2016 37118-Flnsnuzb Plate 03/01/2016 13791-Jninndiu Plate 09/18/2015 03816-Pdrzxzci Plate 12/29/2023 09358-Vggfrrgw Plate 10/24/2023 38377-Qtywjkyi Plate 09/23/2022 32988-Qktzrbpi Plate 08/01/2023 55613-Ntuyxknm Plate 05/24/2024 50209-Njcaiqjj Plate 11/23/2021 05696-Ycsomxpv Plate 07/06/2021 06229-Roxkbles Plate 02/15/2022 07516-Eluxvvgr Plate 05/03/2022 89123-Gtreoihs Plate 12/02/2022 72959-Trvuufxm Plate 09/21/2018 85776-Oxagqqst Plate 05/09/2023 98809-Dsjvmnyr Plate 02/14/2023 02421-Wkmqdgyz Plate Each Additional 52656-Fwyduxom Plate Each Additional 64137-Rpbbmzhg Plate Each Additional 10/2020 53940-Exzyqing Plate Each Additional 11914-Nldualff Plate Each Additional 82312-Eghvnpzr Plate Each Additional 12/2016 03788-Iutwylwb Plate Each Additional 99220-Rzwjjkof Plate Each Additional 35978-Cxaxsgvg Plate Each Additional 47025-Fdxowcnb Plate Each Additional 05/2015 88430-Sdtnpvrw Plate Each Additional 13486-Michbvmm Plate Each Additional 70399-Kwjzodvd Plate Each Additional 03/2012 02913-Bprawxoy Plate Each Additional 04/2012 31059-Megldxrf Plate Each Additional 12/2011 20724-Upofktod Plate Each Additional 12/2011 82204-Uudpalye Plate Each Additional 32630-Tohigmpc Plate Each Additional 03/2013 75497-Ssslkcxp Plate Each Additional 95628-Mfwjgpgy Plate Each Additional 11/2012 43569-Udkpodto Plate Each Additional 31068-Ewpsbevr Plate Each Additional 10/2013 51383-Bfahgtvv Plate Each Additional 09/2013 05151-Ltqbwkkk Plate Each Additional 31336-Rvefdjmu Plate Each Additional 03/2017 93892-Lrjuwbou Plate Each Additional 85110-Htzxoaci Plate Each Additional 08/2018 49122-Wujjhrrl Plate Each Additional 05107-Adxogjra Plate Each Additional 02/2018 98812-Kzsfriss Plate Each Additional 01/2018 48572-Wonwfvvd Plate Each Additional 63870-Sechxuek Plate Each Additional 39996-Yrceruos Plate Each Additional 32755-Ewifjwgh Plate Each Additional 65276-Qqvabofc Plate Each Additional 42895-Jogfxuel Plate Each Additional 03/2020 42498-Ehyblpxz Plate Each Additional 06/2020 59086-Lvlherig Plate Each Additional 05/2021 23349-Ovweywag Plate Each Additional 12/2020 98439-Ghhlgzod Plate Each Additional 11/2020 15532- Debride <25 sq cm 12/02/2011 44649 I&D ABSCESS- SIMPLE,SINGLE 012 22574-WXXG SKIN LESIONS, OVER 4 08/27/20 24 57240-WYVT SKIN LESIONS, OVER 4 05/24/20 24 09769-WKWU SKIN LESIONS, OVER 4 10/24/19 24 43781-YMIS SKIN LESIONS, OVER 4 12/29/19 24 50924-ICBG SKIN LESIONS, OVER 4 03/15/20 24 71203-QTAB SKIN LESIONS, 2 TO 4 11/24/19 22 98309-MVCD SKIN LESIONS, 2 TO 4 07/06/20 21 67219-RKBW SKIN LESIONS, 2 TO 4 02/16/20 22 38871-GRHR SKIN LESIONS, 2 TO 4 05/03/20 60837-HDAY SKIN LESIONS, 2 TO 4 07/15/20 39104-KHOV SKIN LESIONS, 2 TO 4 12/03/19 23 44875-DAIY SKIN LESIONS, 2 TO 4 09/23/19 23 89853-MIWV SKIN LESIONS, 2 TO 4 02/15/20 23 08259-CQDY SKIN LESIONS, 2 TO 4 05/09/20 23 43580-ZSQX SKIN LESIONS, 2 TO 4 08/01/20 11975-GJWJ SKIN LESIONS, 2 TO 4 06/12/20 15 70132-VRFY SKIN LESIONS, 2 TO 4 02/28/20 15 02037-MTTS SKIN LESIONS, 2 TO 4 12/20/19 15 48420-TBSS SKIN LESIONS, 2 TO 4 09/26/19 15 43841-UNXZ SKIN LESIONS, 2 TO 4 03/10/20 17 23420-IHHE SKIN LESIONS, 2 TO 4 12/07/19 17 78953-CVPG SKIN LESIONS, 2 TO 4 09/06/19 17 99754-AZLD SKIN LESIONS, 2 TO 4 06/03/20 16 47415-CTGD SKIN LESIONS, 2 TO 4 09/18/19 16 84292-UXOX SKIN LESIONS, 2 TO 4 03/01/20 16 82201-NUTA SKIN LESIONS, 2 TO 4 12/01/19 16 64504-LPHM SKIN LESIONS, 2 TO 4 04/06/20 21 53649-BZSF SKIN LESIONS, 2 TO 4 01/06/20 21 95567-JNOJ SKIN LESIONS, 2 TO 4 10/13/19 21 83627-KFGQ SKIN LESIONS, 2 TO 4 07/14/20 20 55111-DZYM SKIN LESIONS, 2 TO 4 04/10/20 20 98650-IYRG SKIN LESIONS, 2 TO 4 01/17/20 20 71454-QBNI SKIN LESIONS, 2 TO 4 10/04/19 20 06076-DMLE SKIN LESIONS, 2 TO 4 06/21/20 19 85494-JAVZ SKIN LESIONS, 2 TO 4 03/22/20 19 06572-WLZX SKIN LESIONS, 2 TO 4 12/22/19 19 92573-NMKW SKIN LESIONS, 2 TO 4 09/21/19 19 26642-CBRZ SKIN LESIONS, 2 TO 4 06/08/20 18 23634-XACX SKIN LESIONS, 2 TO 4 03/09/20 18 39688-CDFB SKIN LESIONS, 2 TO 4 12/16/19 18 82252-BWCZ SKIN LESIONS, 2 TO 4 09/15/19 18 85670-EPYD SKIN LESIONS, 2 TO 4 06/16/20 17 HEMOGLOBIN A1C (GLYCOHEMOGLOBIN) 020 Next Appt Details Provider Name:Tony Kera Mann , 11/29/2024 10:00:00 AM, [address] [facility], [place], [address], Insurance Providers Payer Name Payer Address Payer Phone Subscriber Number Group Number Insured Name Patient Relationship to Insured Coverage Start Date Coverage End Date Medicare National Govt [facility] [address] [place] [address] [id number] Candace Rodriguez Self - patient is the insured 2 [employer] [facility] [address] [place] [address] [phone] [id number] Candace Rodriguez Self - patient is the insured Medical (General) History Medical History History ICD Code high blood pressure Cholesterol rheumatic fever Arthritis anemia type II diabetes Surgical History Surgery Date(Month/Year) hysterectomy 1970 right knee replacement 09/20/2012 left knee replacement 01/06/2014 cataracts 11/2018, 12/2018 triple bypass 03/12/20 Hospitalization History Reason Date(Month/Year) [facility] for High Blood Pressure 12/01/2015
--- OUTSIDE RECORDS SUMMARY | 2024-10-02 11:36 | XMS_ITS ---
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 Name Role Phone Maycol Yan MD Primary Care Provider Tony Ambrose Unavailable [phone] Allergies Allergen (clinical drug ingredient) Drug/Non Drug Allergy documented on EMR Reaction Allergy Type Onset Date Status Pineapple Concentrate Unknown Drug Allergy Active Adhesive rash Allergy Active REASON FOR VISIT At Risk Footcare, Painful Nail(s) aggrevated by shoes and causing difficulty standing/walking, Toe Irritation Medications Medication SIG (Take, Route, Frequency, Duration) Notes Start Date End Date Status Furosemide 20 MG Orally Once a day Not-Taking Lisinopril 30 mg daily Not -Taking Diovan Not-Taking Lasix Not-Taking Carvedilol 12.5 MG Orally BID Not-Taking Losartan Potassium 50 MG Orally Once a day Not-Taking hydroCHLOROthiazide 25 mg Not-Taking Clopidogrel Bisulfate Not-Taking metFORMIN HCl 1000 MG Orally twice a day Active Losartan Potassium 5mg A ctive Hydralazine-HCTZ Act cesia glipiZIDE 5 MG as directed Orally Active Eucerin . as directed Externally Apply Twice a day to Feet for 30 days 09/15/2017 Active amLODIPine Besylate 10 MG 1 tablet Orally Active Atorvastatin Calcium 40 MG as directed Orally Active Aspir-81 Active Nightsplint . . . . for 30 days Active Extra Depth Orthopedic Shoes, (1) Pair With (3) Pair Custom Heat Molded Multidensity Innersoles Dx: NIDDM/PVD(E11.51), Hammertoe Foot Deformity(M20.41,M20. 42), Preulcerative Skin Lesion(s)(L85.1) Wear Daily for 365 days 12/29/2023 Active Social History Tobacco Use: Social History Observation Description Date Details (start date - stop date) Never Smoker NA - NA Tobacco Use/Smoking Question Answer Notes Are you a: nonsmoker Additional Findings: Tobacco Non-User Aggressive non-smoker Tobacco use other than smoking: Question Answer Notes Are you an other tobacco user? No Problems Problem Type SNOMED Code ICD Code Onset Dates Problem Status W/U Status Risk Notes Problem Essential hypertension (79212338) Essential hypertension (I10) Active confirmed Vital Signs Height 4 ft 11 in in 08/27/2024 Weight 138 lbs 08/27/2024 BMI 27.87 kg/m2 08/27/2024 Blood pressure systolic 116 mm Hg 08/27/20 Blood pressure diastolic 60 mm Hg 024 Procedures Procedure Date Ordered Date Performed Result Body Sit e 28455-ZAJXWIL NAIL, 6 OR MORE 08/27/2024 N/A 99341-MJTM SKIN LESIONS, OVER 4 08/27/2024 N/A Encounters Encounter Location Date Provider Diagnosis [facility] [place] [address] [place] [address] 08/27/2024 Tony Mann Type 2 diabetes mellitus with diabetic peripheral angiopathy without gangrene E11.51 ; Tinea unguium B35.1 ; Pain in right toe(s) M79.674 ; Pain in left toe(s) M79.675 ; Other hammer toe(s) (acquired), right foot M20.41 and Other hammer toe(s) (acquired), left foot M20.42 Assessments Encounter Date Diagnosis (ICD Code) Assessment Notes Treatment Notes Treatment Clinical Notes Section Notes 08/27/2024 Type 2 diabetes mellitus with diabetic peripheral angiopathy without gangrene (ICD-10 - E11.51) 08/27/2024 Tinea unguium (ICD-10 - B35.1) 08/27/2024 Pain in right toe(s) (ICD-10 - M79.674) 08/27/2024 Pain in left toe(s) (ICD-10 - M79.675) 08/27/2024 Other hammer toe(s) (acquired), right foot (ICD-10 - M20.41) Response to treatment,Impro vement 08/27/2024 Other hammer toe(s) (acquired), left foot (ICD-10 - M20.42) Response to treatment,Impro vement Plan Of Treatment Pending Test Test Name Order Date [id number] NAIL, 6 OR MORE 08/27/2024 26684-GIHZ SKIN LESIONS, OVER 4 08/27/20 Next Appt Details Follow Up: prn, Reason: Provider Name:Tony Mann , 11/29/2024 10:00:00 AM, [address] [place] [address], [id number], Procedure Notes * Category Sub-Category Detail Notes Debride Nail 6-10 Nail debridement Due to the cl inical pathology outlined in the exam findings, performance of this nail treatment is medically necessary as its management by an unskilled/untrained nonprofessional would put this patients foot and overall health at risk. Therefore, debridement to affected nail(s), as described in exam ( TA, T1, T2, T3, T4, T5, T6, T7, T8, T9), was performed exclusively by the physician of record to reduce/remove overall nail length, girth, thickness, subungual debris, and necrotic tissue, by manual and/or electrical means through the use of a nail nipper and/or dremel-type grinder setup operator, to a more viable healthy nail plate or bed tissue 6-10 nails in total. Silver nitrate was used for any petechial bleeding as necessary. Definitive antifungal treatment options, both pharmaceutical and surgical, have been reviewed and discussed with the patient. The patient solely prefers the use of intermittent/as needed professional debridement services for their nail condition and understands the need for additional periodic treatments to maintain effectiveness in symptomatic relief - 74172 Keratoma Treatment Parring or Cutting o f Benign Hyperkeratotic Lesion(s) (-57) More than 4 Lesions - Due to the at risk nature of the patients medical condition as documented in the exam findings, performance of this keratoderma treatment is medically necessary as its management by an unskilled/untrained nonprofessional would put this patients foot and overall health at risk. Therefore, the benign hyperkeratotic lesions, ( 6) in total, locations as stated and described in the exam ( Medial plantar, IPJ, TA, Medial plantar, IPJ, T5, SUB MTH (s), 1, B/L , Plantar, Heel, B/L), were pared, and/or cut utilizing a sterile 15 blade, tissue nippers, and/or power dremel instrumentation by the physician of record - 52025, Q8 Progress Notes * Candace RODRIGUEZ SDOB:[birth year] (89 yo F)Acc No.[id number]:08/27/2024 Progress Note Patient:?Candace RODRIGUEZ S Provider:?Tony Mann DPM :1935???Age:89 Y???Sex:Female D ate:08/27/2024 Address:[address] [place], [place] [id number] Pcp:Maycol Yan MD Subjective: * Chief Complaints: * ???At Risk FootcarePainful N ail(s) aggrevated by shoes and causing difficulty standing/walkingToe Irritation * HPI: ???At Risk footcare:?Pt States Last PCP Visit:?Date?07/17/2024 ???Toe pain:?Treatments:?Rx shoes .? * ROS:?General/Constitutional:?Nausea?denies.?Vomiting?denies.?Hunger Thirst?denies.?Loss appetite?denies.?Chills?denies.?Fatigue?denies.?Fever?denies.?Night Sweats?denies.?Unexplained weight loss?denies.?Ophthalmologic:?Blurred vision?denies.?Red eye?denies.?HEENTM:?Dentures?denies.?Dizziness?denies.?Glasses/contacts?admits.?Retinopathy?de nies.?Blurred/double vision?denies.?TMJ?denies.?Discharge/drainage?denies.?Implants?denies.?Hard of hearing denies.?Difficulty chewing/swallowing/speaking?denies.?Nose bleeds?denies.?Sore mouth?denies.?Swollen glands?denies.?Respiratory:?On Oxygen?denies.?Pneumonia/pleurisy?denies.?Bronchitis?denies.?Emphysema?denies.?C oughing?denies.?Cough blood?denies.?Shortness of breath?denies.?Wheezing?denies.?Cardiovascular:?Pacemaker?denies.?MVP?denies.?WPW?denies.?CHF?denies.?Heart attack?denies.?Septal defect?denies.?Rapid beat?denies.?Chest pain ?denies.?Atrial Fib.?denies.?Murmur/Palpitations?denies.?Gastrointestinal:?Hemorrhoids?denies.?Stomach/Abdominal pain?denies.?Dark blood stool?denies.?Irritable bowel ?denies.?Constipation?denies.?Diarrhea?denies.?Vomiting?denies.?Hematology:?Swelling?denies.?Bruising?denies.?Bleeding problem?denies.?Genitourinary:?Blood urine?denies.?Frequent/Painfu/urination/bladder control?denies.?Kidney stones?denies.?Infection (UTI)?denies.?Nephropathy?denies.?Musculoskeletal:?Hammertoes?admits.?Bunions?denies.?Scoliosis/kyphosis?denies.?Muscle cramps / walking?denies.?Generalized aches and pains?denies.?Weakness?denies.?Integ.:?Olivas?denies.?Scars?denies,?denies.?Corns/calluses?admits,?admits.?Ingrown nails?admits,?admits.?Painful nails?admits,?admits.?Rashes?denies.?Neurologic:?Difficulty sleeping?denies,?denies.?Bipolar?denies,?denies.?Brain disorder?denies,?denies.?Balance trouble?denies,?denies.?Confusion?denies,?denies.?Fainting/blackouts?denies,?den ies.?Headache?denies,?denies.?Tremors?denies,?denies.? * Medical History:? * Surgical History:?hysterecto my 1970right knee replacement 09/20/2012left knee replacement 01/06/2014cataracts 11/2018, 12/2018triple bypass 03/12/20 * Hospitalization/Major Diagno stic Procedure:?[facility] High Blood Pressure 12/01/2015 * Family History:?Mother: dece ased, diagnosed with Unspecified essential hypertension.?Father: , diagnosed with Unspecified cerebral artery occlusion with cerebral infarction.? * Social History:?Tobacco Use:?Tobacco Use/Smoking?Are you a:?nonsmoker ?Additional Findings: Tobacco Non-User?Aggressive non-smoker ?Tobacco use other than smoking?Are you an other tobacco user??No * Medications:?TakingExtra Dep th Orthopedic Shoes, (1) Pair With (3) Pair Custom Heat Molded Multidensity Innersoles . Dx: NIDDM/PVD(E11.51), Hammertoe Foot Deformity(M20.41,M20.42), Preulcerative Skin Lesion(s)(L85.1) Wear Daily Nightsplint . . . . . Aspir-81 Atorvastatin Calcium 40 MG Tablet as directed Orally amLODIPine Besylate 10 MG Tablet 1 tablet Orally Eucerin . Cream as directed Externally Apply Twice a day to Feet glipiZIDE 5 MG Tablet as directed Orally Hydralazine-HCTZ Losartan Potassium , Notes to Pharmacist: 5mgmetFORMIN HCl 1000 MG Tablet Orally twice a day Taking Extra Depth Orthopedic Shoes, (1) Pair With (3) Pair Custom Heat Molded Multidensity Innersoles . Dx: NIDDM/PVD(E11.51), Hammertoe Foot Deformity(M20.41,M20.42), Preulcerative Skin Lesion(s)(L85.1) Wear Daily Taking Nightsplint . . . . . Taking Aspir-81 Taking Atorvastatin Calcium 40 MG Tablet as directed Orally Taking amLODIPine Besylate 10 MG Tablet 1 tablet Orally Taking Eucerin . Cream as directed Externally Apply Twice a day to Feet Taking glipiZIDE 5 MG Tablet as directed Orally Taking Hydralazine-HCTZ Taking Losartan Potassium , Notes to Pharmacist: 5mgTaking metFORMIN HCl 1000 MG Tablet Orally twice a day Not-Taking/PRNClopidogrel Bisulfate hydroCHLOROthiazide 25 mg Losartan Potassium 50 MG Tablet Orally Once a day Furosemide 20 MG Tablet Orally Once a day Carvedilol 12.5 MG Tablet Orally BID Lasix Diovan Lisinopril 30 mg daily Medication List reviewed and reconciled with the patientNot-Taking/PRN Clopidogrel Bisulfate Not-Taking/PRN hydroCHLOROthiazide 25 mg Not-Taking/PRN Losartan Potassium 50 MG Tablet Orally Once a day Not-Taking/PRN Furosemide 20 MG Tablet Orally Once a day Not-Taking/PRN Carvedilol 12.5 MG Tablet Orally BID Not-Taking/PRN Lasix Not-Taking/PRN Diovan Not-Taking/PRN Lisinopril 30 mg daily Medication List reviewed and reconciled with the patient * Allergies:?Pineapple Concent rateAdhesive: greg[Allergies Verified] Objective: * Vitals:?Ht: 4 ft 11 in, Wt: 138, BMI: 27.87, Shoe size: 8, BP: 116/60 mm Hg, BS: not taken, Wt-k.6 kg. * ???Past Orders: ???Lab:HEMOGLOBIN A1C (GLYCO HEMOGLOBIN) (Order Date - 12/29/2023) (Collection Date & Time - 12/11/2023) ? Value Reference Range ?HEMOGLOBIN A1C % (HH) 6.7 * Examination: ???Vascular: ?DP PULSES (B):?1, B/L.?PT PULSES (B):?14, RIGHT, 0/4, B/L.?CAPILLARY FILL TIME:?delayed, all digits, B/L.?TROPHIC CONDITION-TEXTURE/ELASTICITY/TURGOR/HAIR GROWTH (B):?decreased, with sparse to absent hair growth, B/L.?TEMPERTURE GRADIENT (C):?decreased, cool to cool, proximal to distal, B/L.?PIGMENTATION:? rubrous, Forefoot, B/L.?EDEMA (C):? 1/4, non-pitting, without aching pain, B/L, ankle(s), feet.?CLAUDICATION (C):?denies, B/L.?REST PAIN:?denies, B/L.?Nails: ?NAILS are:?Elongated, overgrown, dystrophic, lytic, greater than 3mm thick, discolored and friable with crumbly malodorous subungual debris, with pain on palpation, TA, T1, T2, T3, T4, T5, T6, T7, T8, T9.?Dermatologic: ?SKIN FINDINGS:?Skin exam reveals Keratotic lesion(s) located at, Medial plantar, IPJ, TA, Medial plantar, IPJ, T5, SUB MTH (s), 1, B/L , Plantar, Heel, B/L .?Orthopedic: ?DIGITAL DEFORMITIES:?Digital contracture, PIPJ, 2-5 B/L, incompl-reducible to push-up test, no over, nor underlapping , no longer, with evidence of shoe producing skin irritation.?FOOTWEAR:?good condition, exhibit proper fit and accommodation for pedal deformities. OT were inspected and noted to be worn, but in good condition giving proper support at the present time.? Assessment: * Assessment: 1.?Type 2 diabetes mellitus with diabetic peripheral angiopathy without gangrene - E11.51 (Primary)???2.?Tinea unguium - B35.1???3.?Pain in right toe(s) - M79.674???4.?Pain in left toe(s) - M79.675???5.?Other hammer toe(s) (acquired), right foot - M20.41???Specify :Chronic problem, Stable (1=3,2=4)???Notes :Response to treatment,Improvement???6.?Other hammer toe(s) (acquired), left foot - M20.42???Specify :Chronic problem, Stable (1=3,2=4)???Notes :Response to treatment,Improvement??? Plan: * Treatment: 2.?Tinea unguium?Procedure: 36088-BAOLORY NAIL, 6 OR MORE * Procedures:?Debride Nail 6-10:?Nail debridement?Due to the clinical pathology outlined in the exam findings, performance of this nail treatment is medically necessary as its management by an unskilled/untrained nonprofessional would put this patients foot and overall health at risk. Therefore, debridement to affected nail(s), as described in exam (?TA, T1, T2, T3, T4, T5, T6, T7, T8, T9), was performed exclusively by the physician of record to reduce/remove overall nail length, girth, thickness, subungual debris, and necrotic tissue, by manual and/or electrical means through the use of a nail nipper and/or dremel-type grinder setup operator, to a more viable healthy nail plate or bed tissue 6- 10 nails in total. Silver nitrate was used for any petechial bleeding as necessary. Definitive antifungal treatment options, both pharmaceutical and surgical, have been reviewed and discussed with the patient. The patient solely prefers the use of intermittent/as needed professional debridement services for their nail condition and understands the need for additional periodic treatments to maintain effectiveness in symptomatic relief - 77170.?Keratoma Treatment:?Parring or Cutting of Benign Hyperkeratotic Lesion(s)?(-57) More than 4 Lesions - Due to the at risk nature of the patients medical condition as documented in the exam findings, performance of this keratoderma treatment is medically necessary as its management by an unskilled/untrained nonprofessional would put this patients foot and overall health at risk. Therefore, the benign hyperkeratotic lesions, ( 6) in total, locations as stated and described in the exam (?Medial plantar,?IPJ,?TA,?Medial plantar,?IPJ,?T5,?SUB MTH (s),?1,?B/L?,?Plantar,?Heel,?B/L), were pared, and/or cut utilizing a sterile 15 blade, tissue nippers, and/or power dremel instrumentation by the physician of record - 13779, Q8.? * Procedure Codes:?16660 DEBRI DE NAIL, 6 OR MORE, Modifiers: XS 98677 TRIM SKIN LESIONS, OVER 4, Modifiers: XS , Q8 * Preventive Medicine:? ??Counseling:?Discussion:?-13: Office or other outpatient visit for the evaluation and management of an established patient, which required a medically appropriate history and/or examination and LOW level of DECISION MAKING for: 1 STABLE ACUTE UNCOMPLICATED PROBLEM, 2 OR MORE MINOR PROBLEMS, OR 1 STABLE CHRONIC PROBLEM, THAT POSE(S) A LOW RISK FOR MORBIDITY/MORTALITY. The visit on the day of the encounter encompassed interpreting the data and educating the patient as to the nature of their condition, treatment options available according to their individual PMH, meds, allergies, and overall health/living conditions, as well as any potential risks or complications that may occur from a failure to adhere to, and participate in, the recommended course of therapy. The discussion included a complete verbal, and/or written explanation of the examination results, any x-rays taken, the proposed diagnosis, and outline of the treatment plan. A schedule for future care needs was also explained. The patient verbalized an understanding of the instructions at this time and agreed to be an active participant in their treatment. If the patient should think of any questions or concerns after the visit, I have encouraged the patient to call the office.?Shoe Gear Counseling:?Patient to obtain shoes hopefully soon, A thorough inspection of the patients Rxed shoegear and inserts was performed and findings communicated. We reviewed the many important medical advantages for adhering to regularly wearing these shoe and insert accomidative devices daily as well as reviewed the fact that a failure in accepting these recommedations may be deleterious, unable to prevent, and disadvantagely result in, many pedal complications such as skin irritation, skin ulceration, infection, and even loss of toe/foot/leg/or even their life. Time was also spent reviewing the proper footcare techniques including daily skin moisturization, daily foot inspection for any interruption in skin integrity, open lesions, or sign of infection such as redness/malodor/drainage/swelling as well as daily shoe inspection for the presence of internal foreign bodies and shoe as well as insert wear. Patient questions re: shoes, inserts, and self foot inspections were answered to their satisfaction as the patient verbally confirmed a full understanding of the above information.? * Follow Up:?prn * Images: * Sign off status: Completed true * Provider:?Tony Mann DPM Date:?2023 Generated for Ryan kendrick/Carey/Aneesh on:?10/02/2024 11:36 AM EST History and Physical Notes * HPI (History of Present Illness) Category Sub-Category Detail Notes Category Not es Toe pain Treatments: Rx shoes At Risk footcare Pt States Last PCP Visit: Date: 4 Examination Category Sub-Category Detail Notes Category Not es Dermatologic SKIN FINDINGS: Skin exam reveal s Keratotic lesion(s) located at, Medial plantar, IPJ, TA, Medial plantar, IPJ, T5, SUB MTH (s), 1, B/L , Plantar, Heel, B/L Orthopedic FOOTWEAR: good condition, exhibit proper fit and accommodation for pedal deformities. OT were inspected and noted to be worn, but in good condition giving proper support at the present time DIGITAL DEFORMITIES: Digital contracture , PIPJ, 2-5 B/L, incompl-reducible to push-up test, no over, nor underlapping , no longer, with evidence of shoe producing skin irritation Vascular DP PULSES (B): 1/4, B/L PT PULSES (B): 1/4, RIGHT, 0/4, B/L CAPILLARY FILL TIME: delayed, all digits , B/L TEMPERTURE GRADIENT (C): decreased, cool to cool, proximal to distal, B/L TROPHIC CONDITION-TEXTURE/ELASTICITY/TURGOR/HAIR GROWTH (B): decreased, with sparse to absent hair gr owth, B/L EDEMA (C): 1/4, non-pitting, wi thout aching pain, B/L, ankle(s), feet CLAUDICATION (C): denies, B/L REST PAIN: denies, B/L PIGMENTATION: rubrous, Forefoot, B /L Nails NAILS are: Elongated, overg rown, dystrophic, lytic, greater than 3mm thick, discolored and friable with crumbly malodorous subungual debris, with pain on palpation, TA, T1, T2, T3, T4, T5, T6, T7, T8, T9
--- OUTSIDE RECORDS SUMMARY | 2024-10-02 11:37 | XMS_ITS ---
Author Organization [facility] Address [address] [place] [address] Care Team Providers Care Advertising Assistant Name Role Phone Maycol Yan MD Primary Care Provider Tony Ambrose Unavailable [phone] Allergies Allergen (clinical drug ingredient) Drug/Non Drug Allergy documented on EMR Reaction Allergy Type Onset Date Status Pineapple Concentrate Unknown Drug Allergy Active Adhesive rash Allergy Active REASON FOR VISIT At Risk Footcare, Painful Nail(s) aggrevated by shoes and causing difficulty standing/walking Medications Medication SIG (Take, Route, Frequency, Duration) Notes Start Date End Date Status Lasix Not-Taking Carvedilol 12.5 MG Orally BID Not-Taking Furosemide 20 MG Orally Once a day Not-Taking Lisinopril 30 mg daily Not -Taking Diovan Not-Taking Losartan Potassium 50 MG Orally Once a day Not-Taking hydroCHLOROthiazide 25 mg Not-Taking Clopidogrel Bisulfate Not-Taking metFORMIN HCl 1000 MG Orally twice a day Active Losartan Potassium 5mg A ctive Eucerin . as directed Externally Apply Twice a day to Feet for 30 days 09/15/2017 Active amLODIPine Besylate 10 MG 1 tablet Orally Active Atorvastatin Calcium 40 MG as directed Orally Active Hydralazine-HCTZ Act cesia glipiZIDE 5 MG as directed Orally Active Aspir-81 Active [...] Are you an other tobacco user? No Vital Signs Height 4 ft 11 in in 03/15/2024 Weight 138 lbs 03/15/2024 BMI 27.87 kg/m2 03/15/2024 Blood pressure systolic 118 mm Hg 03/15/20 Blood pressure diastolic 65 mm Hg 024 Procedures Procedure Date Ordered Date Performed Result Body Sit e 04989-RUWVWKH NAIL, 6 OR MORE 03/15/2024 N/A 12096-ORRD SKIN LESIONS, OVER 4 03/15/2024 N/A Encounters Encounter Location Date Provider Diagnosis [facility] [address] [address] 03/15/2024 Tony Mann Type 2 diabetes mellitus with diabetic peripheral angiopathy without gangrene E11.51 ; Tinea unguium B35.1 ; Pain in right toe(s) M79.674 and Pain in left toe(s) M79.675 Assessments Encounter Date Diagnosis (ICD Code) Assessment Notes Treatment Notes Treatment Clinical Notes Section Notes 03/15/2024 Type 2 diabetes mellitus with diabetic peripheral angiopathy without gangrene (ICD-10 - E11.51) 03/15/2024 Tinea unguium (ICD-10 - B35.1) 03/15/2024 Pain in right toe(s) (ICD-10 - M79.674) 03/15/2024 Pain in left toe(s) (ICD-10 - M79.675) Plan Of Treatment Pending Test Test Name Order Date 92179-YVQHNDW NAIL, 6 OR MORE 03/15/2024 83969-XADX SKIN LESIONS, OVER 4 03/15/20 24 Next Appt Details Follow Up: prn, Reason: Provider Name:Tony Mann , 11/29/2024 10:00:00 AM, [address] [facility], [place], [address], Procedure Notes * Category Sub-Category Detail Notes Debride Nail 6-10 Nail debridement Nail debridem ent performed extensively to reduce/remove overall nail length, girth, thickness, subungual debris, and necrotic tissue, by manual and electrical means through the use of a nail nipper and/or dremel, to more viable healthy nail plate or bed tissue 1-5. Silver nitrate used for any petechial bleeding as necessary. Patient chooses, no pharmaceutical tx (00318) Keratoma Treatment Parring or Cutting o f Benign Hyperkeratotic Lesion(s) 96015 ( More than 4 Lesions ) - The Benign hyperkeratotic lesions, as described above were pared, and/or cut utilizing a sterile 15 blade, tissue nippers, and/or dremel , Q8 Progress Notes * Candace RODRIGUEZ SDOB:[birth year] (88 yo F)Acc No.[id number]:03/15/2024 Progress Note Patient:?Candace Rodriguez S Provider:?Tony Mann DPM :1935???Age:88 Y???Sex:Female D ate:03/15/2024 Address:[address] [place] [id number] Pcp:Maycol Yan MD Subjective: * Chief Complaints: * ???At Risk FootcarePainful N ail(s) aggrevated by shoes and causing difficulty standing/walking * HPI: ???At Risk footcare:?Pt States Last PCP Visit:?Date?02/15/2024 ???Toe pain:?Treatments:?Rx shoes , states still needs - appt scheduled for May 01.? * ROS:?General/Constitutional:?Nausea?denies.?Vomiting?denies.?Hunger Thirst?denies.?Loss appetite?denies.?Chills?denies.?Fatigue?denies.?Fever?denies.?Night Sweats?denies.?Unexplained weight loss?denies.?Ophthalmologic:?Blurred [...] 12/2018triple bypass 03/12/20 * Hospitalization/Major Diagno stic Procedure:?[facility] Blood Pressure 12/01/2015 * Family History:?Mother: dece ased, diagnosed with Unspecified essential hypertension.?Father: , diagnosed with Unspecified cerebral artery occlusion with cerebral infarction.? * Social History:?Tobacco Use:?Tobacco Use/Smoking?Are you a:?nonsmoker ?Additional Findings: Tobacco Non-User?Aggressive non-smoker ?Tobacco use other than smoking?Are you an other tobacco user??No ???Drugs/Alcohol:?Drugs?Have you used drugs other than those for medical reasons in the past 12 months??No ?Alcohol Screen?Did you have a drink containing alcohol in the past year??No ?Points?0 ?Interpretation?Negative ???Miscellaneous:?Caffeine: yes, frequency: 1 daily, decafe. ?Children: yes, 4. ?Exercise: yes, walking. ?Marital status: . ?Occupation: Retired [employer]. * Medications:?TakingExtra Dep th Orthopedic Shoes, (1) Pair With (3) Pair Custom Heat Molded Multidensity Innersoles . Dx: NIDDM/PVD(E11.51), Hammertoe Foot Deformity(M20.41,M20.42), Preulcerative Skin Lesion(s)(L85.1) Wear DailyNightsplint . . . . .Aspir-81 Atorvastatin Calcium 40 MG Tablet as directed Orally amLODIPine Besylate 10 MG Tablet 1 tablet Orally Eucerin . Cream as directed Externally Apply Twice a day to FeetglipiZIDE 5 MG Tablet as directed Orally Hydralazine-HCTZ Losartan Potassium , Notes: 5mgmetFORMIN HCl 1000 MG Tablet Orally twice a dayTaking Extra Depth Orthopedic Shoes, (1) Pair With (3) Pair Custom Heat Molded Multidensity Innersoles . Dx: NIDDM/PVD(E11.51), Hammertoe Foot Deformity(M20.41,M20.42), Preulcerative Skin Lesion(s)(L85.1) Wear DailyTaking Nightsplint . . . . .Taking Aspir-81 Taking Atorvastatin Calcium 40 MG Tablet as directed Orally Taking amLODIPine Besylate 10 MG Tablet 1 tablet Orally Taking Eucerin . Cream as directed Externally Apply Twice a day to FeetTaking glipiZIDE 5 MG Tablet as directed Orally Taking Hydralazine-HCTZ Taking Losartan Potassium , Notes: 5mgTaking metFORMIN HCl 1000 MG Tablet Orally twice a dayNot-Taking/PRNClopidogrel Bisulfate hydroCHLOROthiazide 25 mg Losartan Potassium 50 MG Tablet Orally Once a dayFurosemide 20 MG Tablet Orally Once a dayCarvedilol 12.5 MG Tablet Orally BIDLasix Diovan Lisinopril 30 mg dailyMedication List reviewed and reconciled with the patientNot-Taking/PRN Clopidogrel Bisulfate Not-Taking/PRN hydroCHLOROthiazide 25 mg Not-Taking/PRN Losartan Potassium 50 MG Tablet Orally Once a dayNot-Taking/PRN Furosemide 20 MG Tablet Orally Once a dayNot-Taking/PRN Carvedilol 12.5 MG Tablet Orally BIDNot-Taking/PRN Lasix Not-Taking/PRN Diovan Not-Taking/PRN Lisinopril 30 mg dailyMedication List reviewed and reconciled with the patient * Allergies:?Pineapple Concent rateAdhesive: greg[Allergies Verified] Objective: * Vitals:?Ht: 4 ft 11 in, Wt:1 38, BMI:27.87, Shoe size:8, BP:118/65 mm Hg, BS:not taken. * ???Past Orders: ???Lab:HEMOGLOBIN A1C (GLYCO HEMOGLOBIN) (Order Date - 12/29/2023) (Collection Date - 12/11/2023) ? Value Reference Range ?HEMOGLOBIN A1C % (HH) 6.7 * Examination: ???Vascular: ?DP PULSES:?1/4, B/L.?PT PULSES:?1/4, RIGHT, 0/4, B/L.?CAPILLARY FILL TIME:?delayed, all digits, B/L.?SKIN TEMPERTURE GRADIENT OF THE LOWER EXTERMITIES:?decreased, cool to cool, proximal to distal, B/L.?HAIR GROWTH/TEXTURE/ELASTICITY/TURGOR:?decreased, B/L.?PIGMENTATION:? rubrous, Forefoot, B/L.?EDEMA:? 1/4, non-pitting, without aching pain, B/L, ankle(s), feet.?CLAUDICATION:?denies, B/L.?REST PAIN:?denies, B/L.?Nails: ?NAILS are:?Elongated, overgrown, dystrophic, lytic, greater than 3mm thick, discolored and friable with crumbly malodorous subungual debris, with pain on palpation, 1-5 B/L.?Dermatologic: ?SKIN FINDINGS:?Skin exam reveals Keratotic lesion(s) located at, Medial plantar, IPJ, TA, Medial plantar, IPJ, T5, SUB MTH (s), 1, B/L , Heel, B/L .? Assessment: * Assessment: 1.?Type 2 diabetes mellitus with diabetic peripheral angiopathy without gangrene - E11.51?2.?Tinea unguium - B35.1?3.?Pain in right toe(s) - M79.674?4.?Pain in left toe(s) - M79.675? Plan: * Treatment: 2.?Tinea unguium?Procedure: 02817-ZSSUUPQ NAIL, 6 OR MORE * Procedures:?Debride Nail 6-10:?Nail debridement?Nail debridement performed extensively to reduce/remove overall nail length, girth, thickness, subungual debris, and necrotic tissue, by manual and electrical means through the use of a nail nipper and/or dremel, to more viable healthy nail plate or bed tissue 1-5. Silver nitrate used for any petechial bleeding as necessary. Patient chooses, no pharmaceutical tx (83911).?Keratoma Treatment:?Parring or Cutting of Benign Hyperkeratotic Lesion(s)?75174 ( More than 4 Lesions ) - The Benign hyperkeratotic lesions, as described above were pared, and/or cut utilizing a sterile 15 blade, tissue nippers, and/or dremel , Q8.? * Procedure Codes:?46609 DEBRI DE NAIL, 6 OR MORE, Modifiers: XS 02913 TRIM SKIN LESIONS, OVER 4, Modifiers: XS , Q8 * Preventive Medicine:? ??Counseling:?Shoe Gear Counseling:?Patient to obtain shoes hopefully soon.? * Follow Up:?prn * Images: * Sign off status: Completed Addendum: * ? true * Provider:?Tony Mann DPM Date:?2023 Generated for Ryan kendrick/Carey/Aneesh on:?10/02/2024 11:36 AM EST History and Physical Notes * HPI (History of Present Illness) Category Sub-Category Detail Notes Category Not es Toe pain Treatments: Rx shoes , state s still needs - appt scheduled for May 01 At Risk footcare Pt States Last PCP Visit: Date: Examination Category Sub-Category Detail Notes Category Not es Dermatologic SKIN FINDINGS: Skin exam reveal s Keratotic lesion(s) located at, Medial plantar, IPJ, TA, Medial plantar, IPJ, T5, SUB MTH (s), 1, B/L , Heel, B/L Vascular DP PULSES (B): 1/4, B/L PT PULSES (B): 1/4, RIGHT, 0/4, B/L CAPILLARY FILL TIME: delayed, all digits , B/L TEMPERTURE GRADIENT (C): decreased, cool to cool, proximal to distal, B/L TROPHIC CONDITION-TEXTURE/ELASTICITY/TURGOR/HAIR GROWTH (B): decreased, B/L EDEMA (C): 1/4, non-pitting, wi thout aching pain, B/L, ankle(s), feet CLAUDICATION (C): denies, B/L REST PAIN: denies, B/L PIGMENTATION: rubrous, Forefoot, B /L Nails NAILS are: Elongated, overg rown, dystrophic, lytic, greater than 3mm thick, discolored and friable with crumbly malodorous subungual debris, with pain on palpation, 1-5 B/L
--- OUTSIDE RECORDS SUMMARY | 2024-10-02 11:37 | XMS_ITS | Clinical Summary ---
Author Organization [facility] Facility Address [address] [place] [id number] Care Team Providers Care Sewer Pipe Offbearer Name Role Phone Maycol Yan MD Primary Care Provider Allergies Active Allergy Reactions Criticality Noted Date Comments Latex Other (see comments) 10/09/2020 Pineapple Other (see comments) 10/09/2020 Medications acetaminophen (TYLENOL) 325 MG tablet Take 3 tablets by mouth 4 (four) times a day Active amLODIPine (Norvasc) 10 MG tablet Take 1 tablet by mouth 1 (one) time each day 03/17/2017 Active aspirin (ST RASHEED) 81 MG EC tablet Take 1 tablet by mouth 1 (one) time each day Active atorvastatin (LIPITOR) 40 MG tablet Take 1 tablet by mouth 1 (one) time each day Active hydrALAZINE (APRESOLINE) 25 MG tablet Take 0.5 tablets by mouth 2 (two) times a day Active metFORMIN (GLUCOPHAGE) 1000 MG tablet TAKE ONE TABLET BY MOUTH TWICE A DAY 09/22/2020 Active losartan (COZAAR) 100 MG tablet 04/25/2022 Active glipiZIDE (GLUCOTROL XL) 10 MG 24 hr tablet Take 10 mg by mouth 1 (one) time each day 02/28/2022 Active Active Problems Problem Noted Date Diagnosed Date Stage 3a chronic kidney disease 04/29/2021 Chronic kidney disease stage 2 10/09/2020 Essential hypertension 10/09/2020 Hypertensive renal disease 10/09/2020 Proteinuria 10/09/2020 Renal disorder due to type 2 diabetes mellitus 0 10/09/2020 Family History Medical History Relation Comments Diabetes Father Hypertension Mother Relation Status Comments Father Mother Social History Tobacco Use Types Packs/Day Years Used Date Smoking Tobacco: Never Smokeless Tobacco: Never Tobacco Cessation:Counseling Given: No Alcohol Use Standard Drinks/Week Comments No 0 (1 standard drink = 0.6 oz pur e alcohol) Comments Unknown Sex and Gender Information Value Date Recorded Sex Assigned at Not on file Legal Sex Female 4:44 PM EST Gender Identity Not on file Sexual Orientation Not on file Last Filed Vital Signs Vital Sign Reading Time Taken Comments Blood Pressure 117/64 04/29/2024 1:05 PM EDT Pulse 78 04/29/2024 1:05 PM EDT Temperature - - Respiratory Rate - - Oxygen Saturation 94% 04/29/2024 1:05 PM EDT Inhaled Oxygen Concentration - - Weight 63.6 kg (140 lb 3.2 oz) 04/29/2024 1:05 P M EDT Height 152.4 cm (5') 03/11/2019 12:00 PM EDT Body Mass Index 27.38 03/11/2019 12:00 PM EDT Plan of Treatment Upcoming Encounters Date Type Department Care Team (Late st Contact Info) Description 05/08/2025 1:15 PM EDT Office Visit [facility] [address] [place] [address] Kalen Bloom MD [address] [facility] [address] [place] [address] Health Maintenance Due Date Last Done Comments Diabetes: Ophthalmology Exam 10/05/2020 Diabetes: Pedal Pulse Checked 10/05/2020 Diabetes: Sensory Foot Exam 10/05/2020 Diabetes: Visual Foot Exam 10/05/2020 Pneumococcal Vaccine: 65+ Years (2 of 2 - PCV) 07/05/2023 07/05/2022 Diabetes: Hemoglobin A1C 07/13/2023 023, 03/06/2020 Influenza Vaccine (#1) 2024 07/05/2022 Hepatitis B Vaccine Aged Out No longe r eligible based on patient's age to complete this topic Procedures Procedure Name Priority Date/Time Associated Diagnosis Comments EXT RESULT ENTRY Routine 04/12/2023 from Last 3 Months or Most Recently Relevant to Health Maintenance Results * (ABNORMAL) EXT RESULT ENTRY (04/12/2023) Hemoglobin A1C 6.6(A) 4.0 - 6.0 04/12/2023 Historical Provider LAB BLOOD ORDERABLES Missy l Result from Last 3 Months or Most Recently Relevant to Health Maintenance Insurance MEDICARE [facility] MEDICARE [facility] Care Teams Sewer Pipe Offbearer Relationship Specialty Start Date End Date Maycol Yan MD [address] [address] PCP - General Family Medicine 10/06/20
--- OUTSIDE RECORDS SUMMARY | 2024-10-02 11:37 | XMS_ITS ---
Author Organization [facility] [place] Address [address] [place] [address] Care Team Providers Care Sports Medicine Trainer Name Role Phone Maycol Yan MD Primary Care Provider Tony Ambrose Unavailable [phone] Allergies Allergen (clinical drug ingredient) Drug/Non Drug Allergy documented on EMR Reaction Allergy Type Onset Date Status Pineapple Concentrate Unknown Drug Allergy Active Adhesive rash Allergy Active REASON FOR VISIT At Risk Footcare, Painful Nail(s) aggrevated by shoes and causing difficulty standing/walking, Ingrown Nail Medications Medication SIG (Take, Route, Frequency, Duration) Notes Start Date End Date Status Lisinopril 30 mg daily Not -Taking Diovan Not-Taking Carvedilol 12.5 MG Orally BID Not-Taking Lasix Not-Taking Extra Depth Orthopedic Shoes, (1) Pair With (3) Pair Custom Heat Molded Multidensity Innersoles Dx: NIDDM/PVD(E11.51), Hammertoe Foot Deformity(M20.41,M20. 42), Preulcerative Skin Lesion(s)(L85.1) Wear Daily for 365 days 12/29/2023 Active Losartan Potassium 50 MG Orally Once a day Not-Taking Furosemide 20 MG Orally Once a day Not-Taking Clopidogrel Bisulfate Not-Taking hydroCHLOROthiazide 25 mg Not-Taking metFORMIN HCl 1000 MG Orally twice a day Active Hydralazine-HCTZ Act cesia Eucerin . as directed Externally Apply Twice a day to Feet for 30 days 09/15/2017 Active glipiZIDE 5 MG as directed Orally Active amLODIPine Besylate 10 MG 1 tablet Orally Active Losartan Potassium 5mg A ctive Atorvastatin Calcium 40 MG as directed Orally Active Nightsplint . . . . for 30 days Active Aspir-81 Active Social History Tobacco Use: Social History [...] Signs Height 4 ft 11 in in 05/24/2024 Weight 138 lbs 05/24/2024 BMI 27.87 kg/m2 05/24/2024 Blood pressure systolic 118 mm Hg 05/24/20 24 Blood pressure diastolic 65 mm Hg 024 Procedures Procedure Date Ordered Date Performed Result Body Sit e 21217-DPYZUIE NAIL, 6 OR MORE 05/24/2024 N/A 57555-Jkfmbjnv Plate 05/24/2024 N/A 72904-LMDO SKIN LESIONS, OVER 4 05/24/2024 N/A Encounters Encounter Location Date Provider Diagnosis [facility] [address] [address] 05/24/2024 Tony Mann Type 2 diabetes mellitus with diabetic peripheral angiopathy without gangrene E11.51 ; Tinea unguium B35.1 ; Pain in right toe(s) M79.674 ; Pain in left toe(s) M79.675 and Ingrown nail L60.0 Assessments Encounter Date Diagnosis (ICD Code) Assessment Notes Treatment Notes Treatment Clinical Notes Section Notes 05/24/2024 Type 2 diabetes mellitus with diabetic peripheral angiopathy without gangrene (ICD-10 - E11.51) 05/24/2024 Tinea unguium (ICD-10 - B35.1) 05/24/2024 Pain in right toe(s) (ICD-10 - M79.674) 05/24/2024 Pain in left toe(s) (ICD-10 - M79.675) 05/24/2024 Ingrown nail (ICD-10 - L60.0) Plan Of Treatment Pending Test Test Name Order Date 57878-XBLEUPS NAIL, 6 OR MORE 05/24/2024 64285-Hritygey Plate 05/24/2024 89219-GTIV SKIN LESIONS, OVER 4 05/24/20 24 Next Appt Details Follow Up: prn, Reason: Provider Name:Tony Mann , 11/29/2024 10:00:00 AM, [address] [place], [address], Procedure Notes * Category Sub-Category Detail Notes Nail Avulsion Procedure A fine sterile e levator was placed between the eponychium, nail fold, and nail plate to separate the structures. A sterile nail splitter, and/or sterile 316 blade, was then used to longitudinally section the nail along its entire length through the eponychium to the area under the nail fold. The offending portion of nail was from the nail bed with a rolling action and then removed with a hemostat. No underlying bone was identified. There was minimal bleeding as hemostasis was achieved through the temporary use of either a digital tourniquet or the aforementioned local with epinephrine. A bacitracin sterile dressing was applied. Local wound aftercare instructions were discussed and dispensed. The patient was informed of both conservative and future surgical procedures to prevent recurrence. Tylenol or Motrin was recommended for pain or discomfort (69006) , DIABETES: Pt was advised as to the risk of delayed or nonhealing due to diabetes. Pt is to call the office with any questions, concerns, or complications Anesthesia 2cc of 1 percent Lid ocaine Plain local anesthesic utilizing aseptic technique Location Lateral nail border , TA Debride Nail 6-10 Nail debridement Performance o f this nail treatment by a nonprofessional would put this patients foot and overall health at risk. Therefore, nail debridement was performed extensively to reduce/remove overall nail length, girth, thickness, subungual debris, and necrotic tissue, by manual and/or electrical means through the use of a nail nipper and/or dremel-type mash grinder, to a more viable healthy nail plate or bed tissue 6-10. Silver nitrate used for any petechial bleeding as necessary. Definitive antifungal treatment options have been reviewed and discussed with the patient. The patient chooses, no pharmaceutical tx - 98184 Keratoma Treatment Parring or Cutting o f Benign Hyperkeratotic Lesion(s) (-57) More than 4 Lesions - The Benign hyperkeratotic lesions, as described above were pared, and/or cut utilizing a sterile 15 blade, tissue nippers, and/or dremel - 05649 , Q8 Progress Notes * Candace RODRIGUEZ SDOB:[birth year] (89 yo F)Acc No.[id number]:05/24/2024 Progress Note Patient:?Candace Rodriguez Provider:?Tony Mann DPM :1935???Age:89 Y???Sex:Female D ate:05/24/2024 Address:[address] [place], [place] [address] Pcp:Maycol Yan MD Subjective: * Chief Complaints: * ???At Risk FootcarePainful N ail(s) aggrevated by shoes and causing difficulty standing/walkingIngrown Nail * HPI: ???At Risk footcare:?Pt States Last PCP Visit:?Date?02/15/2024 ???Toe pain:?Treatments:?Rx shoes , states still needs - despite appt scheduled in ? * ROS:?General/Constitutional:?Nausea?denies.?Vomiting?denies.?Hunger Thirst?denies.?Loss appetite?denies.?Chills?denies.?Fatigue?denies.?Fever?denies.?Night Sweats?denies.?Unexplained weight loss?denies.?Ophthalmologic:?Blurred [...] 12/2018triple bypass 03/12/20 * Hospitalization/Major Diagno stic Procedure:?[facility] for High Blood Pressure 12/01/2015 [...] yes, walking. ?Marital status: . ?Occupation: Retired [place] [place] [employer]. * Medications:?TakingExtra Dep th Orthopedic Shoes, (1) [...] % (HH) 6.7 * Examination: ???Vascular: ?DP PULSES(B):?1/4, B/L.?PT PULSES(B):?1/4, RIGHT, 0/4, B/L.?CAPILLARY FILL TIME:?delayed, all digits, B/L.?TROPHIC CONDITION-TEXTURE/ELASTICITY/TURGOR/HAIR GROWTH(B):?decreased, with sparse to absent hair growth, B/L.?TEMPERTURE GRADIENT(C):?decreased, cool to cool, proximal to distal, B/L.?PIGMENTATION:? rubrous, Forefoot, B/L.?EDEMA(C):? /, non-pitting, without aching pain, B/L, ankle(s), feet.?CLAUDICATION(C):?denies, B/L.?REST PAIN:?denies, B/L.?Nails: ?NAILS are:?Elongated, overgrown, dystrophic, lytic, greater than 3mm thick, discolored and friable with crumbly malodorous subungual debris, with pain on palpation, 1-5 B/L.?Dermatologic: ?SKIN FINDINGS:?Skin exam reveals Keratotic lesion(s) located at, Medial plantar, IPJ, TA, Medial plantar, IPJ, T5, SUB MTH (s), 1, B/L , Heel, B/L .?Ingrown Nail: ?INSPECTION:?Reveals nail incurvation, pain on palpation, groove hypertrophy , Lateral nail border , TA.? Assessment: * Assessment: 1.?Type 2 diabetes mellitus with diabetic peripheral angiopathy without gangrene - E11.51?2.?Tinea unguium - B35.1?3.?Pain in right toe(s) - M79.674?4.?Pain in left toe(s) - M79.675?5.?Ingrown nail - L60.0, Lateral nail border, TA? Plan: * Treatment: 2.?Tinea unguium?Procedure: 11430-LKTHMSB NAIL, 6 OR MORE 3.?Ingrown nail?Procedure: 64881-Xxrjgpjt Plate * Procedures:?Debride Nail 6-10:?Nail debridement?Performance of this nail treatment by a nonprofessional would put this patients foot and overall health at risk. Therefore, nail debridement was performed extensively to reduce/remove overall nail length, girth, thickness, subungual debris, and necrotic tissue, by manual and/or electrical means through the use of a nail nipper and/or dremel-type mash grinder, to a more viable healthy nail plate or bed tissue 6-10. Silver nitrate used for any petechial bleeding as necessary. Definitive antifungal treatment options have been reviewed and discussed with the patient. The patient chooses, no pharmaceutical tx - 71666.?Keratoma Treatment:?Parring or Cutting of Benign Hyperkeratotic Lesion(s)?(-57) More than 4 Lesions - The Benign hyperkeratotic lesions, as described above were pared, and/or cut utilizing a sterile 15 blade, tissue nippers, and/or dremel - 04547 , Q8.?Nail Avulsion:?Location?Lateral nail border , TA.?Anesthesia?2cc of 1 percent Lidocaine Plain local anesthesic utilizing aseptic technique.?Procedure?A fine sterile elevator was placed between the eponychium, nail fold, and nail plate to separate the structures. A sterile nail splitter, and/or sterile 316 blade, was then used to longitudinally section the nail along its entire length through the eponychium to the area under the nail fold. The offending portion of nail was from the nail bed with a rolling action and then removed with a hemostat. No underlying bone was identified. There was minimal bleeding as hemostasis was achieved through the temporary use of either a digital tourniquet or the aforementioned local with epinephrine. A bacitracin sterile dressing was applied. Local wound aftercare instructions were discussed and dispensed. The patient was informed of both conservative and future surgical procedures to prevent recurrence. Tylenol or Motrin was recommended for pain or discomfort (80476) , DIABETES: Pt was advised as to the risk of delayed or nonhealing due to diabetes. Pt is to call the office with any questions, concerns, or complications.? * Procedure Codes:?31485 DEBRI DE NAIL, 6 OR MORE, Modifiers: XS 46326 Avulsion Plate, Modifiers: XS , [id number] TRIM SKIN LESIONS, OVER 4, Modifiers: XS , Q8 * Preventive Medicine:? ??Counseling:?Shoe Gear Counseling:?Patient to obtain shoes hopefully soon.? * Follow Up:?prn * Images: * Sign off status: Completed true * Provider:?Tony Mann DPM Date:?2023 Generated for Ryan kendrick/Carey/Aneesh on:?10/02/2024 11:37 AM EST History and Physical Notes * HPI (History of Present Illness) Category Sub-Category Detail Notes Category Not es Toe pain Treatments: Rx shoes , state s still needs - despite appt scheduled in Apr At Risk footcare Pt States Last PCP Visit: Date: 4 Examination Category Sub-Category Detail Notes Category Not es Ingrown Nail INSPECTION: Reveals nail inc urvation, pain on palpation, groove hypertrophy , Lateral nail border , TA Dermatologic SKIN FINDINGS: Skin exam reveal s [...]
[2024-10-02 12:25] LABS: Alanine Aminotransferase 20 U/L (0-31); Albumin Level 4.1 g/dL (3.5-5.0); Alkaline Phosphatase 99 U/L (39-117); Anion Gap 15 (12-20); Aspartate Amino Transferase 19 U/L (5-31); Bilirubin Total 0.9 mg/dL (0.0-1.0); Blood Urea Nitrogen 18 mg/dL (9-16); Carbon Dioxide 22 mmol/L (22-29); Chloride 106 mmol/L (96-108); Estimated Glomerular Filt Rate > 60; Glucose Random 131 mg/dL (60-115); Potassium 5.2 mmol/L (3.3-5.1); Sodium 138 mmol/L (135-145); Total Protein 7.3 g/dL (6.5-8.0)
[2024-10-02 12:40] LABS: Vitamin D 25-OH Total 14.2 ng/mL (>30)
== END 2024-10-02 09:52 | disposition home or self-care (01) ==
LOC: HO.WFDLDS 09:51
PROVIDERS: Visit Provider Family Medicine
DX: I10 Essential (primary) hypertension (principal); E11.9 Type 2 diabetes mellitus without complications; I25.10 Atherosclerotic heart disease of native coronary artery without angina pectoris; E55.9 Vitamin D deficiency, unspecified; Z79.84 Long term (current) use of oral hypoglycemic drugs; Z79.899 Other long term (current) drug therapy; Z00.00 Encounter for general adult medical examination without abnormal findings
CPT/HCPCS: 36415; 80053; 82306; 83036; 96127; 99212

== ENCOUNTER 2024-10-02 10:01 | Outpatient (AMB) | payer MEDICARE, SELFPAY ==
--- NOTE | 2024-10-02 10:12 | A.OFFPC_ITS ---
Vital Signs 10/02/24 10:20 10/02/24 10:40 Height 4 ft 11 in Weight 140 lb BMI 28.3 BP 150/60 H 128/60 Blood Pressure Location Rt brachial Lt brachial Position Sitting Sitting Respiration 14 Pulse 70 Pulse Source Pulse Oximeter Temp 97.9 F Temp Source Oral Pulse Oximetry (%) 93 Oxygen Delivery Method Room Air Intake Visit Reasons: f/u hypertension, diabetes Intake Note: f/u HTN Allergies latex [LATEX] Allergy (Intermediate, Verified 10/02/24 10:12) ITCHING pineapple [PINEAPPLE] Allergy (Unknown, Verified 10/02/24 10:12) TONGUE SWELLS Medication List - Last Reconciled 10/02/24 by Maycol Yan MD amlodipine 10 mg PO DAILY aspirin 81 mg PO DAILY atorvastatin 40 mg PO DAILY glipizide ER 10 mg PO DAILY 90 days hydralazine 12.5 mg (1/2 x 25 mg) PO BID losartan 100 mg PO DAILY 90 days metformin 1,000 mg PO BID 90 days miscellaneous medical supply Diabetic shoes, Daily As directed, 999 days Tobacco use date assessed: 11/09/23 Dental Screening Dental Screen Date: 11/09/23 HPI f/u hypertension, diabetes HPI Details 89 y/o female presents to f/u HTN, diabe good, and vitamin D with hx of osteoporosis. Last A1c 06/18/24 6.3%. She is on metformin 1000mg b.i.d, glipizide 10mg daily. A1c today 6.5%. No recent labs to review for her vitamin D. Blood pressure today 150/60, 70p. She is on losartan 100mg, amlodipine 10mg daily. HPI Comments History of Present Illness Details Documentation assistance for Maycol Yan MD, was provided by Bronson Vasquez, [employer] Mill Mixer on 10/02/2024 at 10:52 AM EST. I, Dr. Yan, have read, observed, and verified documentation. 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 Sister No problems noted. Son No problems noted. Son No problems noted. Daughter No problems noted. Daughter No problems noted. [facility] Patient Tobacco Use Status: Never used Tobacco e-Cigarette/Vaping Use: Never Used Second Hand Smoke Exposure: No Advance Directives Date on File: 06/10/20 service: No Current occupational status: retired Current occupational exposures/hazards: No Cognitive needs: No Hearing needs: No Vision needs: No Questionnaire PHQ-9 Over the last 2 weeks, how often have you been bothered by any of the following problems? 1. Little interest or pleasure in doing things: not at all 2. Feeling down, depressed, or hopeless: not at all 3. Trouble falling or staying asleep, or sleeping too much: not at all 4. Feeling tired or having little energy: not at all 5. Poor appetite or overeating: not at all 6. Feeling bad about yourself - or that you are a failure or have let yourself or your family down: not at all 7. Trouble concentrating on things, such as reading the newspaper or watching television: not at all 8. Moving or speaking so slowly that other people could have noticed. Or the opposite - being so fidgety or restless that you have been moving around a lot more than usual: not at all 9. Thoughts that you would be better off or of hurting yourself in some way: not at all Total score: 0 Source: Developed by Drs. Ace Cooper, Sophie Woody, Man Cerna and colleagues, with an educational shannan from [employer]. Thrive Questionnaire Date Thrive assessed: 06/18/24 I am a: Patient What is your living situation today?: I have a steady place to live Within the past 12 months, did the food you bought not last and you didn't have the money to get more?: Never true Within the past 12 months, did you worry whether your food would run out before you got money to buy more?: Never true Do you have trouble paying for medicines?: No Do you have trouble getting transportation to medical appointments?: No Do you have trouble paying your heating and electricity bill?: No Do you have trouble taking care of your child, family member or friend?: No Do you have trouble with day-to-day activities such as bathing, preparing meals, shopping, managing finances, etc.?: No Are you currently unemployed and looking for a job?: No Are you interested in more education?: No Please select the resources that you would like help with: None Currently or been in a relationship where the following occur: No concerns reported THRIVE Score: 0 AUDIT C Alcohol Use Questionnaire (AUDIT-C) 1. How often do you have a drink containing alcohol?: Never Total Score: 0 JUAN LUIS-7 AMB Questionnaire JUAN LUIS-7 Date JUAN LUIS - 7 assessed: 11/09/23 Feeling nervous, anxious, or on edge: 0 = Not at all Not being able to stop or control worryin = Not at all Worrying too much about different things: 0 = Not at all Trouble relaxin = Not at all Being so restless that it is hard to sit still: 0 = Not at all Becoming easily annoyed or irritable: 0 = Not at all Feeling afraid as if something awful might happen: 0 = Not at all Total JUAN LUIS-7 score (0-4 normal; 5-9 mild; 10-14 moderate; 15-21 severe): 0 Source: Developed by Drs. Ace Cooper, Sophie Woody, Man Cerna and colleagues, with an educational shannan from [employer]. Review of Systems Const Denies chills, Denies fatigue, Denies fever(s), Denies headache(s) and Denies weakness ENT Denies dizziness and Denies headache(s) Card Denies dyspnea Resp Denies cough, Denies dyspnea, Denies wheezing and Denies other (shortness of breath) Musc Denies numbness and Denies tingling Neuro Denies dizziness, Denies headache(s), Denies numbness, Denies tingling and Denies weakness Psych Denies anxiety and Denies depression Endo Denies fatigue Aller/Immun Denies wheezing Physical exam (Primary Care) Vital Signs: Last Vital Signs Temp 97.9 F 10/02/24 10:20 Pulse 70 10/02/24 10:20 Resp 14 10/02/24 10:20 BP 150/60 H 10/02/24 10:20 Pulse Ox 93 10/02/24 10:20 Oxygen Delivery Method Room Air 10/02/24 10:20 BMI result Body Mass Index 28.3 Tobacco/Smoking Status: Tobacco use Status Tobacco use date assessed 11/09/23 10/02/24 10:15 Patient Tobacco Use Status Never used Tobacco 10/02/24 10:15 e-Cigarette/Vaping Use Never Used 10/02/24 10:15 PHQ-9: PHQ-9 Score PHQ-9: Total score 0 10/02/24 10:36 Thrive Assessment: Date of Thrive Assessment Date Thrive assessed 06/18/24 10/02/24 10:15 Currently or been in a relationship where the following occur: No concerns reported Const General: well developed; No acute distress Nutritional Appearance: well nourished Orientation/consciousness: patient oriented x3 HENMT Head: Yes normocephalic and Yes atraumatic Eyes General: appearance normal, both eyes and all related structures Pupils: Equal, round and reactive pupils present EOM: EOMs intact bilaterally Resp Effort & Inspection: normal respiratory effort Auscultation: clear to auscultation bilaterally Cardio Rate: regular rate Rhythm: regular rhythm Heart sounds: S1 normal heart sound present, S2 normal heart sound present, no gallops, no murmurs and no rubs Neuro General: patient oriented x3 and gait normal Cranial nerves: Yes Equal, round and reactive pupils present Psych Affect: normal affect Coding Level of Care Code Est Pt Level 3 (53558) Diagnoses Essential hypertension I10 Diabetes type 2, controlled E11.9 Coronary artery disease I25.10 Assessment & Plan Assessment & Plan (1) Essential hypertension: Code(s): I10 - Essential (primary) hypertension Category: Medical Plan: Blood?pressure?was?elevated?at?presentation?but?returns?to?controlled?range?with ?relaxation. Goal?is?less?than?130/80 Blood?pre ssures?may?be?fluctuating?due?to?short?action?of?hydralazine.??She?will?check?bl ood?pressures?home?and?me?know?if?there?fluctuating.??Might?consider?prescribing ?t.i.d.?rather?than?b.i.d.. No?changes?to?blood?pressure?medication?regimen?today (2) Diabetes type 2, controlled: Code(s): E11.9 - Type 2 diabetes mellitus without complications Category: Medical Plan: A1c?6.5%.??Goal?is?less?than?7.0% Good?control Continue?current?medications (3) Coronary artery disease: Code(s): I25.10 - Atherosclerotic heart disease of [place] coronary artery without angina pectoris Category: Medical Plan: Stable Follow-up?with?Cardiology?as?recommended Orders: Orders TSH reflex Free T4 Today Z00.00 - Encounter for general adult medical examination without abnormal findings UA and rflx microscopic Today Z00.00 - Encounter for general adult medical examination without abnormal findings Comprehensive [place]. Panel Fast Today Z00.00 - Encounter for general adult medical examination without abnormal findings Complete Blood Count Auto Diff Today Z00.00 - Encounter for general adult medical examination without abnormal findings Lipid Panel Today Z00.00 - Encounter for general adult medical examination without abnormal findings Microalbumin, Random (w Creat) Today I10 - Essential (primary) hypertension
[2024-10-02 10:20] VITALS: BP 150/60; PULSE 70; RESP 14; TEMP 36.6; O2SAT 93; BMI 28.3
[2024-10-02 10:40] VITALS: BP 128/60
== END 2024-10-02 11:00 | disposition home or self-care (01) ==
PROVIDERS: PCP Family Medicine; Visit Provider Family Medicine
DX: E11.9 Type 2 diabetes mellitus without complications (principal)

== ENCOUNTER 2024-12-31 10:19 | Outpatient (REF) | payer MEDICARE, SELFPAY ==
--- OUTSIDE RECORDS SUMMARY | 2024-12-31 11:48 | XMS_ITS ---
Author Organization [facility] [place] Address [address] [place] [address] Care Team Providers Care Credit Correspondence Clerk Name Role Phone Maycol Yan MD Primary Care Provider Tony Ambrose Unavailable [phone] Allergies Allergen (clinical drug ingredient) Drug/Non Drug Allergy documented on EMR Reaction Allergy Type Onset Date Status Pineapple Concentrate Unknown Drug Allergy Active Adhesive rash Allergy Active REASON FOR VISIT At Risk Footcare, Painful Nail(s) aggrevated by shoes and causing difficulty standing/walking, Ingrown Nail Medications Medication SIG (Take, Route, Frequency, Duration) Notes Start Date End Date Status Diovan Not-Taking Lasix Not-Taking Lisinopril 30 mg daily Not -Taking Carvedilol 12.5 MG Orally BID Not-Taking Furosemide 20 MG Orally Once a day Not-Taking metFORMIN HCl 1000 MG Orally twice a day Active Losartan Potassium 5mg A ctive Clopidogrel Bisulfate Not-Taking Losartan Potassium 50 MG Orally Once a day Not-Taking hydroCHLOROthiazide 25 mg Not-Taking Eucerin . as directed Externally Apply Twice a day to Feet for 30 days 09/15/2017 Active amLODIPine Besylate 10 MG 1 tablet Orally Active Hydralazine-HCTZ Act cesia glipiZIDE 5 MG as directed Orally Active Atorvastatin Calcium 40 MG as directed Orally Active Extra Depth Orthopedic Shoes, (1) Pair With (3) Pair Custom Heat Molded Multidensity Innersoles Dx: NIDDM/PVD(E11.51), Hammertoe Foot Deformity(M20.41,M20. 42), Preulcerative Skin Lesion(s)(L85.1) Wear Daily for 365 days 12/29/2023 Active Nightsplint . . . . for 30 days Active Aspir-81 Active Social History Tobacco Use: Social History Observation Description Date Details (start date - stop date) Never Smoker NA - NA Tobacco use other than smoking: Question Answer Notes Are you an other tobacco user? No Tobacco Control (Standard) Question Answer Notes Tobacco use: Nonsmoker Additional Findings: Tobacco non-user Current no nsmoker AUDIT-C (Standard) Question Answer Notes Did you have a drink containing alcohol in the p ast year? No Points 0 Interpretation Negative Vital Signs Height 4 ft 11 in in 11/29/2024 Weight 138 lbs 11/29/2024 BMI 27.87 kg/m2 11/29/2024 Blood pressure systolic 116 mm Hg 11/30/19 25 Blood pressure diastolic 60 mm Hg 025 Procedures Procedure Date Ordered Date Performed Result Body Sit e 47709-VWACLJQ NAIL, 6 OR MORE 11/29/2024 N/A 33813-Nsmgqgrf Plate 11/29/2024 N/A 89597-LPMI SKIN LESIONS, OVER 4 11/29/2024 N/A Encounters Encounter Location Date Provider Diagnosis [facility] [address] [address] 11/29/2024 Tony Mann Type 2 diabetes mellitus with diabetic peripheral angiopathy without gangrene E11.51 ; Tinea unguium B35.1 ; Pain in right toe(s) M79.674 ; Pain in left toe(s) M79.675 and Ingrown nail L60.0 Assessments Encounter Date Diagnosis (ICD Code) Assessment Notes Treatment Notes Treatment Clinical Notes Section Notes 11/29/2024 Type 2 diabetes mellitus with diabetic peripheral angiopathy without gangrene (ICD-10 - E11.51) 11/29/2024 Tinea unguium (ICD-10 - B35.1) 11/29/2024 Pain in right toe(s) (ICD-10 - M79.674) 11/29/2024 Pain in left toe(s) (ICD-10 - M79.675) 11/29/2024 Ingrown nail (ICD-10 - L60.0) Plan Of Treatment Pending Test Test Name Order Date 26708-GLRUQPK NAIL, 6 OR MORE 11/29/2024 68128-Uyrppkrh Plate 11/29/2024 15682-ISKC SKIN LESIONS, OVER 4 11/30/19 25 Next Appt Details Follow Up: prn, Reason: Provider Name:Tony Mann , 02/25/2025 09:15:00 AM, [address] [place], [address], Procedure Notes * Category Sub-Category Detail Notes [...] Motrin was recommended for pain or discomfort - 18466, DIABETES: Pt was advised as to the risk of delayed or nonhealing due to diabetes. Pt is to call the office with any questions, concerns, or complications Anesthesia 2cc of 1 percent Lid ocaine Plain local anesthesic utilizing aseptic technique Location Lateral nail border, T5 Debride Nail 6-10 Nail debridement Due to the cl inical pathology outlined in the exam findings, performance of this nail treatment is medically necessary as its management by an unskilled/untrained nonprofessional would put this patients foot and overall health at risk. Therefore, debridement to affected nail(s), as described in exam ( TA, T1, T2, T3, T4, T5, T6, T7, T8, T9 ), was performed exclusively by the physician of record to reduce/remove overall nail length, girth, thickness, subungual debris, and necrotic tissue, by manual and/or electrical means through the use of a nail nipper and/or dremel-type lens edge grinder machine, to a more viable healthy nail plate [...] to maintain effectiveness in symptomatic relief - 31720 Keratoma Treatment Parring or Cutting o f Benign Hyperkeratotic Lesion(s) (-57) More than 4 Lesions - Due to the a t risk nature of the patients medical condition as documented in the exam findings, performance of this keratoderma treatment is medically necessary as its management by an unskilled/untrained nonprofessional would put this patients foot and overall health at risk. Therefore, the benign hyperkeratotic lesions, (6) in total, locations as stated and described in the exam ( Medial plantar, IPJ, TA, Medial plantar, IPJ, T5, SUB MTH (s), 1, B/L , Plantar, Heel, B/L ), were pared, and/or cut utilizing a sterile 15 blade, tissue nippers, and/or power dremel instrumentation by the physician of record - 27559, Q8 Progress Notes * Candace RODRIGUEZ SDOB:[birth year] (89 yo F)Acc No.[id number]:11/29/2024 Progress Note Patient:?Candace RODRIGUEZ S Provider:?Tony Mann DPM :1935???Age:89 Y???Sex:Female D ate:11/29/2024 Address:[address] [place], [place] [address] Pcp:Maycol Yan MD Subjective: * Chief Complaints: * ???At Risk FootcarePainful N ail(s) aggrevated by shoes and causing difficulty standing/walkingIngrown Nail * HPI: ???At Risk footcare:?Pt States Last PCP Visit:?Date?10/02/2024 * ROS:?General/Constitutional:?Nausea?denies.?Vomiting?denies.?Hunger Thirst?denies.?Loss appetite?denies.?Chills?denies.?Fatigue?denies.?Fever?denies.?Night Sweats?denies.?Unexplained weight loss?denies.?Ophthalmologic:?Blurred vision?denies.?Red eye?denies.?HEENTM:?Dentures?denies.?Dizziness?denies.?Glasses/contacts?admits.?Retinopathy?den ies.?Blurred/double vision?denies.?TMJ?denies.?Discharge/drainage?denies.?Implants?denies.?Hard of hearing denies.?Difficulty chewing/swallowing/speaking?denies.?Nose bleeds?denies.?Sore mouth?denies.?Swollen glands?denies.?Respiratory:?On Oxygen?denies.?Pneumonia/pleurisy?denies.?Bronchitis?denies.?Emphysema?denies.?C oughing?denies.?Cough blood?denies.?Shortness of breath?denies.?Wheezing?denies.?Cardiovascular:?Pacemaker?denies.?MVP?denies.?WPW?denies.?CHF?denies.?Heart attack?denies.?Septal defect?denies.?Rapid beat?denies.?Chest pain ?denies.?Atrial Fib.?denies.?Murmur/Palpitations?denies.?Gastrointestinal:?Hemorrhoids?denies.?Stomach/Abdominal pain?denies.?Dark blood stool?denies.?Irritable bowel ?denies.?Constipation?denies.?Diarrhea?denies.?Vomiting?denies.?Hematology:?Swelling?denies.?Bruising?denies.?Bleeding problem?denies.?Genitourinary:?Blood urine?denies.?Frequent/Painfu/urination/bladder control?denies.?Kidney stones?denies.?Infection (UTI)?denies.?Nephropathy?denies.?Musculoskeletal:?Hammertoes?admits.?Bunions?denies.?Scoliosis/kyphosis?denies.?Muscle cramps / walking?denies.?Generalized aches and pains?denies.?Weakness?denies.?Integ.:?Olivas?denies.?Scars?denies,?denies.?Corns/calluses?admits,?admits.?Ingrown nails?admits,?admits.?Painful nails?admits,?admits.?Rashes?denies.?Neurologic:?Difficulty sleeping?denies,?denies.?Bipolar?denies,?denies.?Brain disorder?denies,?denies.?Balance t rouble?denies,?denies.?Confusion?denies,?denies.?Fainting/blackouts?denies,?lauren es.?Headache?denies,?denies.?Tremors?denies,?denies.? * Medical History:? * Surgical History:?hysterecto my 1970right knee replacement 09/20/2012left knee replacement 01/06/2014cataracts 11/2018, 12/2018triple bypass 03/12/20 * Hospitalization/Major Diagno stic Procedure:?[facility] for High Blood Pressure 12/01/2015 * Family History:?Mother: dece ased, diagnosed with Unspecified essential hypertension.?Father: , diagnosed with Unspecified cerebral artery occlusion with cerebral infarction.? * Social History:?Tobacco Use:?Tobacco use other than smoking?Are you an other tobacco user??No ?Tobacco Control (Standard)?Tobacco use:?Nonsmoker ?Additional Findings: Tobacco non-user?Current nonsmoker ???Drugs/Alcohol:?Drugs?Have you used drugs other than those for medical reasons in the past 12 months??No ???Drug/Alcohol:?AUDIT-C (Standard)?Did you have a drink containing alcohol in the past year??No ?Points?0 ?Interpretation?Negative * Medications:?TakingExtra Dep th Orthopedic Shoes, (1) [...] with the patient * Allergies:?Pineapple Concent rateAdhesive: johnluis[Allergies Verified] Objective: * Vitals:?Ht: 4 ft 11 in, Wt:1 38, BMI: 27.87, Shoe size:8, BP:116/60mm Hg, Wt-k.6 kg. * ???Past Orders: ???Lab:HEMOGLOBIN A1C (GLYCO HEMOGLOBIN) (Order Date - 10/07/2024) (Collection Date & Time - 11/29/2024 09:58 AM) ? Value Reference Range ?HEMOGLOBIN A1C % (HH) 6.6 * Examination: ???Ophthalmology Referral: ?DIABETES EYE EXAM?Procedure Performed:?Yes ?Date of Exam Performed?08/21/2024 ?Diabetic Retinopathy Screening:?Yes ?Retinal Screening Performed:?Yes ?Findings of Diabetic Eye Exam:?no retinopathy?Vascular: ?DP PULSES (B):?1/4, B/L.?PT PULSES (B):?1/4, RIGHT, 0/4, B/L.?CAPILLARY FILL TIME:?delayed, all digits, [...] (s), 1, B/L , Plantar, Heel, B/L .?Ingrown Nail: ?INSPECTION:?Reveals nail incurvation, pain on palpation, groove hypertrophy, Lateral nail border, T5.? Assessment: * Assessment: 1.?Type 2 diabetes mellitus with diabetic peripheral angiopathy without gangrene - E11.51 (Primary)???Specify :Q8???2.?Tinea unguium - B35.1???3.?Pain in right toe(s) - M79.674???4.?Pain in left toe(s) - M79.675???5.?Ingrown nail - L60.0???Specify :Lateral nail border,?T5??? Plan: * Treatment: 2.?Tinea unguium?Procedure: 75535-GXJVUWA NAIL, 6 OR MORE 3.?Ingrown nail?Procedure: 02832-Aucbdgxv Plate * Procedures:?Debride Nail 6-10:?Nail debridement?Due to the clinical pathology outlined in the exam findings, performance of this nail treatment is medically necessary as its management by an unskilled/untrained nonprofessional would put this patients foot and overall health at risk. Therefore, debridement to affected nail(s), as described in exam (?TA, T1, T2, T3, T4, T5, T6, T7, T8, T9?), was performed exclusively by the physician of record to reduce/remove overall nail length, girth, thickness, subungual debris, and necrotic tissue, by manual and/or electrical means through the use of a nail nipper and/or dremel-type lens edge grinder machine, to a more viable healthy nail plate [...] to maintain effectiveness in symptomatic relief - 73024.?Keratoma Treatment:?Parring or Cutting of Benign Hyperkeratotic Lesion(s)?(-57) More than 4 Lesions - Due to the at risk nature of the patients medical condition as documented in the exam findings, performance of this keratoderma treatment is medically necessary as its management by an unskilled/untrained nonprofessional would put this patients foot and overall health at risk. Therefore, the benign hyperkeratotic lesions, (6) in total, locations as stated and described in the exam (?Medial plantar,?IPJ,?TA,?Medial plantar,?IPJ,?T5,?SUB MTH (s),?1,?B/L?,?Plantar,?Heel,?B/L?), were pared, and/or cut utilizing a sterile 15 blade, tissue nippers, and/or power dremel instrumentation by the physician of record - 24931, Q8.?Nail Avulsion:?Location?Lateral nail border,?T5.?Anesthesia?2cc of 1 percent Lidocaine Plain local anesthesic [...] Motrin was recommended for pain or discomfort - 17834, DIABETES: Pt was advised as to the risk of delayed or nonhealing due to diabetes. Pt is to call the office with any questions, concerns, or complications.? * Procedure Codes:?04056 DEBRI DE NAIL, 6 OR MORE, Modifiers: XS 33035 Avulsion Plate, Modifiers: XS , [id number] TRIM SKIN LESIONS, OVER 4, Modifiers: XS , Q8 * Follow Up:?prn * Images: * Sign off status: Completed true * Provider:?Tony Mann DPM Date:?2024 Generated for Ryan kendrick/Carey/Tameraitting on:?12/31/2024 11:48 AM EDT History and Physical Notes * HPI (History of Present Illness) Category Sub-Category Detail Notes Category Not es At Risk footcare Pt States Last PCP Visit: Date: 5 Examination Category Sub-Category Detail Notes Category Not es Ingrown Nail INSPECTION: Reveals nail inc urvation, pain on palpation, groove hypertrophy, Lateral nail border, T5 Dermatologic SKIN FINDINGS: Skin exam reveal s Keratotic lesion(s) located at, Medial plantar, IPJ, TA, Medial plantar, IPJ, T5, SUB MTH (s), 1, B/L , Plantar, Heel, B/L Ophthalmology Referral DIABETES EYE EXAM Procedu re Performed:: Yes ?Date of Exam Performed: 08/21/2024 Diabetic Retinopathy Screening:: Yes Retinal Screening Performed:: Yes Findings of Diabetic Eye Exam:: no retin opathy Vascular DP PULSES (B): 1/4, B/L PT [...]
--- OUTSIDE RECORDS SUMMARY | 2024-12-31 11:48 | XMS_ITS ---
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 Name Role Phone Maycol Yan MD Primary Care Provider Tony Ambrose Unavailable [phone] Allergies Allergen (clinical drug ingredient) Drug/Non Drug [...] Ordered Date Performed Result Body Sit e 25936-HTOXIOF NAIL, 6 OR MORE 05/24/2024 N/A 17896-Sqwzenjd Plate 05/24/2024 N/A 38941-XSAV SKIN LESIONS, OVER 4 05/24/2024 N/A Encounters Encounter Location Date Provider Diagnosis [facility] [address] [address] 05/24/2024 Tony Mann Type 2 diabetes mellitus [...] Treatment Pending Test Test Name Order Date 45884-HYVITNE NAIL, 6 OR MORE 05/24/2024 21601-Xbzdcvhb Plate 05/24/2024 10372-JWVQ SKIN LESIONS, OVER 4 05/24/20 24 Next Appt Details Follow Up: prn, Reason: Provider Name:Tony Mann , 02/25/2025 09:15:00 AM, [address] [place], [address], Procedure Notes * Category Sub-Category Detail Notes [...] Motrin was recommended for pain or discomfort (35822) , DIABETES: Pt was advised as to [...] use of a nail nipper and/or dremel-type industrial coffee grinder, to a more viable healthy nail plate or bed tissue 6-10. Silver nitrate used for any petechial bleeding as necessary. Definitive antifungal treatment options have been reviewed and discussed with the patient. The patient chooses, no pharmaceutical tx - 65910 Keratoma Treatment Parring or Cutting o f Benign Hyperkeratotic Lesion(s) (-57) More than 4 Lesions - The Benign hyperkeratotic lesions, as described above were pared, and/or cut utilizing a sterile 15 blade, tissue nippers, and/or dremel - 67648 , Q8 Progress Notes * Candace RODRIGUEZ SDOB:[birth year] (89 yo F)Acc No.[id number]:05/24/2024 Progress Note Patient:?Candace Rodriguez Provider:?Tony Mann DPM :1935???Age:89 Y???Sex:Female D ate:05/24/2024 Address:[address] [place], [place] [phone] Pcp:Maycol Yan MD Subjective: * Chief Complaints: [...] 12/2018triple bypass 03/12/20 * Hospitalization/Major Diagno stic Procedure:?[facility] 12/01/2015 * [...] yes, walking. ?Marital status: . ?Occupation: Retired [employer]. * Medications:?TakingExtra Dep th Orthopedic Shoes, (1) [...] border, TA? Plan: * Treatment: 2.?Tinea unguium?Procedure: 81652-RNKYQVR NAIL, 6 OR MORE 3.?Ingrown nail?Procedure: 21402-Ypttotxl Plate * Procedures:?Debride Nail 6-10:?Nail debridement?Performance of this nail treatment by a nonprofessional would put this patients foot and overall health at risk. Therefore, nail debridement was performed extensively to reduce/remove overall nail length, girth, thickness, subungual debris, and necrotic tissue, by manual and/or electrical means through the use of a nail nipper and/or dremel-type industrial coffee grinder, to a more viable healthy nail plate or bed tissue 6-10. Silver nitrate used for any petechial bleeding as necessary. Definitive antifungal treatment options have been reviewed and discussed with the patient. The patient chooses, no pharmaceutical tx - 80712.?Keratoma Treatment:?Parring or Cutting of Benign Hyperkeratotic Lesion(s)?(-57) More than 4 Lesions - The Benign hyperkeratotic lesions, as described above were pared, and/or cut utilizing a sterile 15 blade, tissue nippers, and/or dremel - 39376 , Q8.?Nail Avulsion:?Location?Lateral nail border , TA.?Anesthesia?2cc [...] Motrin was recommended for pain or discomfort (26489) , DIABETES: Pt was advised as to the risk of delayed or nonhealing due to diabetes. Pt is to call the office with any questions, concerns, or complications.? * Procedure Codes:?88968 DEBRI DE NAIL, 6 OR MORE, Modifiers: XS 68545 Avulsion Plate, Modifiers: XS , [id number] TRIM SKIN LESIONS, OVER 4, Modifiers: XS , Q8 * Preventive Medicine:? ??Counseling:?Shoe Gear Counseling:?Patient to obtain shoes hopefully soon.? * Follow Up:?prn * Images: * Sign off status: Completed true * Provider:?Tony Mann DPM Date:?2023 Generated for Ryan kendrick/Carey/Aneesh on:?12/31/2024 11:48 AM EDT History and Physical [...]
--- OUTSIDE RECORDS SUMMARY | 2024-12-31 11:48 | XMS_ITS | Patient Health Record ---
Author Organization [facility] brayan Webber Address [address] [facility] [place] [address] Care Team Providers Care Captain Room Service Name Role Phone Maycol Yan MD Primary Care Provider Tony Ambrose Unavailable [phone] Allergies Allergen (clinical drug ingredient) Drug/Non Drug Allergy documented on EMR Reaction Allergy Type Onset Date Status Pineapple Concentrate Unknown Drug Allergy Active Adhesive rash Allergy Active Results Component Value Reference Range Notes HEMOGLOBIN A1C (GLYCOHEMOGLO BIN) Reviewed date:11/29/2024 09:59:31 AM Interpretation: Performing Lab: Notes/Report: HEMOGLOBIN A1C % (HH) 6.6 Reason For Referral No Information Medications Medication SIG (Take, Route, Frequency, Duration) Notes Start Date End Date Status metFORMIN HCl 1000 MG Orally twice a day Active Losartan Potassium 5mg A ctive Extra Depth Orthopedic Shoes, (1) Pair With (3) Pair Custom Heat Molded Multidensity Innersoles Dx: NIDDM/PVD(E11.51), Hammertoe Foot Deformity(M20.41,M20. 42), Preulcerative Skin Lesion(s)(L85.1) Wear Daily for 365 days 12/29/2023 Active Clopidogrel Bisulfate Not-Taking Eucerin . as directed Externally Apply Twice a day to Feet for 30 days 09/15/2017 Active Diovan Not-Taking amLODIPine Besylate 10 MG 1 tablet Orally Active Lasix Not-Taking Hydralazine-HCTZ Act cesia glipiZIDE 5 MG as directed Orally Active Lisinopril 30 mg daily Not -Taking Nightsplint . . . . for 30 days Active Losartan Potassium 50 MG Orally Once a day Not-Taking hydroCHLOROthiazide 25 mg Not-Taking Atorvastatin Calcium 40 MG as directed Orally Active Carvedilol 12.5 MG Orally BID Not-Taking Aspir-81 Active Furosemide 20 MG Orally Once a day Not-Taking Immunizations Vaccine Route Administration Date Status [...] ast year? No Points 0 Interpretation Negative Problems Problem Type SNOMED Code ICD Code Onset Dates Problem Status W/U Status Risk Notes Problem Acquired hammer toe of right foot (8016476518412 105) Other hammer toe(s) (acquired), right foot (M20.41) Active confirmed Response to treatment,I mprovement Problem Type 2 diabetes mellitus with peripheral angiopathy (095729356) Type 2 diabetes mellitus with diabetic peripheral angiopathy without gangrene (E11.51) Active confirmed Problem Acquired hammer toe of left foot (9586447993266 103) Other hammer toe(s) (acquired), left foot (M20.42) Active confirmed Response to treatment,I mprovement Vital Signs Blood pressure diastolic 60 mm Hg 11/29/2024 Height 4 ft 11 in in 11/29/2024 Blood pressure systolic 116 mm Hg 11/29/2024 Weight 138 lbs 11/29/2024 BMI 27.87 kg/m2 11/29/2024 Procedures Procedure Date Ordered Date Performed Result Body Sit e 09068-AIYCDOJ NAIL, 6 OR MORE 03/15/2024 N/A 84838-SKMS SKIN LESIONS, OVER 4 03/15/2024 N/A 00671-LTQDJHT NAIL, 6 OR MORE 05/24/2024 N/A 35610-Axayyvqn Plate 05/24/2024 N/A 93169-SEJC SKIN LESIONS, OVER 4 05/24/2024 N/A 92184-OHIODKF NAIL, 6 OR MORE 08/27/2024 N/A 40833-SXVN SKIN LESIONS, OVER 4 08/27/2024 N/A 72491-GWBHJCI NAIL, 6 OR MORE 11/29/2024 N/A 62851-Dhgjohgl Plate 11/29/2024 N/A 78412-QZBJ SKIN LESIONS, OVER 4 11/29/2024 N/A Encounters Encounter Location Date Provider Diagnosis [address] [address] 03/15/2024 Tonymoisés Mann Type 2 diabetes mellitus with diabetic peripheral angiopathy without gangrene E11.51 ; Tinea unguium B35.1 ; Pain in right toe(s) M79.674 and Pain in left toe(s) M79.[address] [address] 05/24/2024 Tonymoisés Mann Type 2 diabetes mellitus with diabetic peripheral angiopathy without gangrene E11.51 ; Tinea unguium B35.1 ; Pain in right toe(s) M79.674 ; Pain in left toe(s) M79.675 and Ingrown nail L60.[address] [address] 08/27/2024 Tony Mann Type 2 diabetes mellitus with diabetic peripheral angiopathy without gangrene E11.51 ; Tinea unguium B35.1 ; Pain in right toe(s) M79.674 ; Pain in left toe(s) M79.675 ; Other hammer toe(s) (acquired), right foot M20.41 and Other hammer toe(s) (acquired), left foot M20.[address] [address] 11/29/2024 Tonymoisés Mann Type 2 diabetes mellitus with diabetic [...] E11.51) 08/27/2024 Tinea unguium (ICD-10 - B35.1) 11/29/2024 Type 2 diabetes mellitus with diabetic peripheral angiopathy without gangrene (ICD-10 - E11.51) 11/29/2024 Tinea unguium (ICD-10 - B35.1) 03/15/2024 Pain in right toe(s) (ICD-10 - M79.674) 08/27/2024 Pain in right toe(s) (ICD-10 - M79.674) 11/29/2024 Pain in right toe(s) (ICD-10 - M79.674) 05/24/2024 Pain in right toe(s) (ICD-10 - M79.674) 03/15/2024 Pain in left toe(s) (ICD-10 - M79.675) 05/24/2024 Pain in left toe(s) (ICD-10 - M79.675) 08/27/2024 Pain in left toe(s) (ICD-10 - M79.675) 11/29/2024 Pain in left toe(s) (ICD-10 - M79.675) 11/29/2024 Ingrown nail (ICD-10 - L60.0) 05/24/2024 Ingrown nail (ICD-10 - L60.0) 08/27/2024 Other hammer toe(s) (acquired), right foot (ICD-10 - M20.41) Response to treatment,Impro vement 08/27/2024 Other hammer toe(s) (acquired), left foot (ICD-10 - M20.42) Response to treatment,Impro vement Plan Of Treatment Pending Test Test Name Order Date Hemoglobin A1c 06/12/2015 Hemoglobin A1c 02/15/2017 X ray : Foot, right 3V 04/20/2022 X ray : Foot, right 3V 02/14/2023 91481-IQJUAGK NAIL, 6 OR MORE 02/14/2023 23206-FMJBIBQ NAIL, 6 OR MORE 05/09/2023 63240-MBVFVBV NAIL, 6 OR MORE 08/01/2023 13070-AHGDIZJ NAIL, 6 OR MORE 07/15/2022 89061-YTZTDSQ NAIL, 6 OR MORE 09/23/2022 30535-GTQUYNE NAIL, 6 OR MORE 12/02/2022 83824-YYMOQIT NAIL, 6 OR MORE 05/03/2022 34138-WOJEPYI NAIL, 6 OR MORE 02/15/2022 49786-XSVPABC NAIL, 6 OR MORE 07/06/2021 28112-UJVEBPO NAIL, 6 OR MORE 11/23/2021 84992-ZQTXTQM NAIL, 6 OR MORE 10/24/2023 81270-IULUAOL NAIL, 6 OR MORE 12/29/2023 59280-EXDVHTX NAIL, 6 OR MORE 03/15/2024 21911-YLAWVZN NAIL, 6 OR MORE 05/24/2024 38405-KSAHKAG NAIL, 6 OR MORE 08/27/2024 72439-OQRWSGK NAIL, 6 OR MORE 11/29/2024 50168-VUPNEDR NAIL, 6 OR MORE 09/18/2015 64583-KLJJLTK NAIL, 6 OR MORE 12/01/2015 52660-HDWNDBA NAIL, 6 OR MORE 03/01/2016 43706-UBNJTHB NAIL, 6 OR MORE 06/03/2016 84864-TJJANXP NAIL, 6 OR MORE 09/06/2016 68959-ELKGIDE NAIL, 6 OR MORE 12/06/2016 79591-XPCEIUK NAIL, 6 OR MORE 09/26/2014 21158-QNJPMLU NAIL, 6 OR MORE 12/19/2014 46293-KMQAZFZ NAIL, 6 OR MORE 02/27/2015 87467-RTQVMMF NAIL, 6 OR MORE 06/12/2015 39689-NJZIEUN NAIL, 6 OR MORE 05/17/2011 13104-XBLIXIS NAIL, 6 OR MORE 08/02/2011 38077-XEICBJF NAIL, 6 OR MORE 10/11/2011 48024-EQVTGFF NAIL, 6 OR MORE 01/10/2012 80640-IBJNYQP NAIL, 6 OR MORE 05/08/2012 27100-EKKPHIA NAIL, 6 OR MORE 08/07/2012 05916-QGGQYTY NAIL, 6 OR MORE 11/27/2012 56485-ISZKQBE NAIL, 6 OR MORE 02/08/2013 58047-ODQYNPN NAIL, 6 OR MORE 05/31/2013 29235-XSRWJXO NAIL, 6 OR MORE 08/06/2013 41301-GMMINBC NAIL, 6 OR MORE 10/25/2013 69908-PDWEMBC NAIL, 6 OR MORE 01/03/2014 78133-QRYRQEL NAIL, 6 OR MORE 04/04/2014 46331-GJBLVFF NAIL, 6 OR MORE 06/24/2014 59619-DFMBSSO NAIL, 6 OR MORE 03/10/2017 35102-YQTRGZY NAIL, 6 OR MORE 06/16/2017 45629-OCLTHSU NAIL, 6 OR MORE 09/15/2017 93863-XTGHCVI NAIL, 6 OR MORE 12/15/2017 86837-RTLJTJK NAIL, 6 OR MORE 03/09/2018 77389-IJZCWBA NAIL, 6 OR MORE 06/08/2018 47362-NUIMBPL NAIL, 6 OR MORE 09/21/2018 76725-NTQGAWT NAIL, 6 OR MORE 12/21/2018 28976-MXDVKLX NAIL, 6 OR MORE 03/22/2019 51658-LRPVSZA NAIL, 6 OR MORE 06/21/2019 38376-GHLRVBO NAIL, 6 OR MORE 10/04/2019 42253-MYOVDCT NAIL, 6 OR MORE 01/17/2020 09006-KNFIIUG NAIL, 6 OR MORE 04/10/2020 57332-ZRSAEEB NAIL, 6 OR MORE 07/14/2020 77663-YFHPEXJ NAIL, 6 OR MORE 10/13/2020 24888-PSPRVIR NAIL, 6 OR MORE 01/05/2021 33697-GLLQROT NAIL, 6 OR MORE 04/06/2021 45245-Ibuxuvul Plate 04/06/2021 65454-Gxclggpk Plate 01/05/2021 16074-Tujxbset Plate 10/13/2020 93342-Levcllxr Plate 07/14/2020 57515-Nvkbsrct Plate 04/10/2020 47246-Gvldvdkw Plate 01/17/2020 02881-Nsbjlstw Plate 10/04/2019 69564-Rnupkquf Plate 06/21/2019 08490-Zhnaepzo Plate 03/22/2019 50101-Ldygfkhu Plate 12/21/2018 99637-Pwcjnshw Plate 06/08/2018 74229-Frubchyt Plate 03/09/2018 85106-Xvzyuyuz Plate 12/15/2017 23692-Bisotutq Plate 09/15/2017 46784-Ojrztenz Plate 06/16/2017 59543-Zjsjcsip Plate 03/10/2017 76988-Dblnrlai Plate 06/24/2014 36371-Bnxzhgko Plate 04/04/2014 74947-Rkuyhkil Plate 01/03/2014 85857-Tghaejvp Plate 10/25/2013 27057-Bibdpnpp Plate 08/06/2013 64628-Dtstcrkz Plate 05/31/2013 47149-Kuumvccp Plate 02/08/2013 61130-Yudplxlc Plate 11/27/2012 73360-Kabnmxmr Plate 08/07/2012 41417-Wfysxioc Plate 05/08/2012 97646-Fqeynyov Plate 01/10/2012 40310-Luydextu Plate 08/02/2011 01328-Xkpfeaju Plate 10/11/2011 51566-Jvwijxjd Plate 05/17/2011 66182-Feupnarw Plate 06/12/2015 53385-Viowyxtv Plate 02/27/2015 72518-Edvubpqa Plate 12/19/2014 24988-Rolkwnrb Plate 09/26/2014 78130-Zykrtmqz Plate 12/06/2016 11810-Loduqsae Plate 09/06/2016 06453-Kteegsgi Plate 03/01/2016 43094-Ncalfxfw Plate 09/18/2015 13136-Afufcyfn Plate 05/24/2024 13725-Gnjgivtx Plate 11/29/2024 69154-Arzjrltt Plate 12/29/2023 65562-Cvqynozz Plate 10/24/2023 75554-Learynoe Plate 09/23/2022 41224-Ougkfktm Plate 08/01/2023 71901-Jkwnmxul Plate 11/23/2021 86096-Pytnxxxm Plate 07/06/2021 85498-Zasejcqi Plate 02/15/2022 25481-Ejmxfwlk Plate 05/03/2022 90997-Ixbvncjw Plate 12/02/2022 49675-Qlukdcmb Plate 09/21/2018 55508-Mchhszoj Plate 05/09/2023 00935-Svacjivz Plate 02/14/2023 27737-Gqugajhm Plate Each Additional 06584-Dgeisgdg Plate Each Additional 99424-Vdneexar Plate Each Additional 10/2020 68752-Dsplhvwi Plate Each Additional 60961-Ksobneoz Plate Each Additional 88517-Dssokwwo Plate Each Additional 12/2016 96102-Vliizmjk Plate Each Additional 19068-Zptpqfth Plate Each Additional 91781-Coewtnfo Plate Each Additional 12118-Tzbebbtn Plate Each Additional 05/2015 91559-Dbaxbxhc Plate Each Additional 40720-Fdavyqge Plate Each Additional 71746-Rccbyqso Plate Each Additional 03/2012 40218-Slomjnyf Plate Each Additional 04/2012 22646-Zvhcaybp Plate Each Additional 12/2011 63673-Tasikdtc Plate Each Additional 12/2011 17732-Axjqveql Plate Each Additional 38249-Ivlxauee Plate Each Additional 03/2013 43005-Zukipkrj Plate Each Additional 59651-Jhzrlzsm Plate Each Additional 11/2012 74533-Obvttgjh Plate Each Additional 72939-Ogbogusa Plate Each Additional 10/2013 60845-Rgxrxzii Plate Each Additional 09/2013 37070-Ifnlpegy Plate Each Additional 22503-Tbftryzs Plate Each Additional 03/2017 07442-Iuwakyhk Plate Each Additional 60531-Kuvexatd Plate Each Additional 08/2018 45923-Sfetaakh Plate Each Additional 54943-Lndhhruj Plate Each Additional 02/2018 95865-Tugivwhe Plate Each Additional 01/2018 49774-Uwxxaypl Plate Each Additional 87873-Oxpqrmov Plate Each Additional 81788-Zsaufkyj Plate Each Additional 05479-Gyftdaje Plate Each Additional 79055-Goivrama Plate Each Additional 98260-Ytkzzjeb Plate Each Additional 03/2020 52667-Drymqjgh Plate Each Additional 06/2020 93870-Macpgzut Plate Each Additional 05/2021 83686-Okrvznjt Plate Each Additional 12/2020 98392-Wqaajhid Plate Each Additional 11/2020 59523- Debride <25 sq cm 12/02/2011 53906 I&D ABSCESS- SIMPLE,SINGLE 012 89430-KGPL SKIN LESIONS, OVER 4 10/24/19 24 02496-RMSZ SKIN LESIONS, OVER 4 12/29/19 24 28463-FIBP SKIN LESIONS, OVER 4 03/15/20 38083-MMAI SKIN LESIONS, OVER 4 11/30/19 82790-RFWE SKIN LESIONS, OVER 4 08/27/20 34594-AMTW SKIN LESIONS, OVER 4 05/24/20 24 71897-AEMV SKIN LESIONS, 2 TO 4 11/24/19 15804-ZNZH SKIN LESIONS, 2 TO 4 07/06/20 21 51563-VCHF SKIN LESIONS, 2 TO 4 02/16/20 22 70706-CHNG SKIN LESIONS, 2 TO 4 05/03/20 22 18675-QDFC SKIN LESIONS, 2 TO 4 07/15/20 22 46225-DWLX SKIN LESIONS, 2 TO 4 12/03/19 23 23297-NKAQ SKIN LESIONS, 2 TO 4 09/23/19 23 61476-RBNJ SKIN LESIONS, 2 TO 4 02/15/20 23 38217-OGGI SKIN LESIONS, 2 TO 4 05/09/20 23 68550-ZAWN SKIN LESIONS, 2 TO 4 08/01/20 23 90541-RGDL SKIN LESIONS, 2 TO 4 06/12/20 15 77936-MEFF SKIN LESIONS, 2 TO 4 02/28/20 15 33778-NQYM SKIN LESIONS, 2 TO 4 12/20/19 15 08349-MXQI SKIN LESIONS, 2 TO 4 09/26/19 15 83417-YOFL SKIN LESIONS, 2 TO 4 03/10/20 17 32691-FONX SKIN LESIONS, 2 TO 4 12/07/19 17 84704-HAXO SKIN LESIONS, 2 TO 4 09/06/19 17 33513-UHAI SKIN LESIONS, 2 TO 4 06/03/20 16 45891-ODDD SKIN LESIONS, 2 TO 4 09/18/19 16 00510-TMWP SKIN LESIONS, 2 TO 4 03/01/20 16 79392-VCDG SKIN LESIONS, 2 TO 4 12/01/19 16 60526-OBII SKIN LESIONS, 2 TO 4 04/06/20 21 15261-IYZA SKIN LESIONS, 2 TO 4 01/06/20 21 09411-JOFZ SKIN LESIONS, 2 TO 4 10/13/19 21 18883-CJYB SKIN LESIONS, 2 TO 4 07/14/20 20 54573-KRWR SKIN LESIONS, 2 TO 4 04/10/20 20 49113-WRCX SKIN LESIONS, 2 TO 4 01/17/20 20 12834-VPJK SKIN LESIONS, 2 TO 4 10/04/19 20 79978-RFSZ SKIN LESIONS, 2 TO 4 06/21/20 19 83642-MPNU SKIN LESIONS, 2 TO 4 03/22/20 19 92171-TFOS SKIN LESIONS, 2 TO 4 12/22/19 19 24317-EHZQ SKIN LESIONS, 2 TO 4 09/21/19 19 79277-NYVT SKIN LESIONS, 2 TO 4 06/08/20 18 10225-ZSIK SKIN LESIONS, 2 TO 4 03/09/20 18 16702-NALP SKIN LESIONS, 2 TO 4 12/16/19 18 98517-POHO SKIN LESIONS, 2 TO 4 09/15/19 18 38955-MNWQ SKIN LESIONS, 2 TO 4 06/16/20 17 HEMOGLOBIN A1C (GLYCOHEMOGLOBIN) 020 Next Appt Details Provider Name:Tony Cote Mackenzie , 02/25/2025 09:15:00 AM, [address] [place] [address], [phone], Insurance Providers Payer Name Payer Address Payer Phone Subscriber Number Group Number Insured Name Patient Relationship to Insured Coverage Start Date Coverage End Date Medicare National [employer] [address] [facility] [place] [address] [id number] Candace Rodriguez Self - patient is the insured 2 [facility] [address] [place] [address] [phone] [id number] Candace Rodriguez Self - patient is the insured Medical (General) History Medical History History ICD Code high blood pressure Cholesterol rheumatic fever Arthritis anemia type II diabetes Surgical History Surgery Date(Month/Year) hysterectomy 1970 right knee replacement 09/20/2012 left knee replacement 01/06/2014 cataracts 11/2018, 12/2018 triple bypass 03/12/20 Hospitalization History Reason Date(Month/Year) [facility] 12/01/2015
--- OUTSIDE RECORDS SUMMARY | 2024-12-31 11:48 | XMS_ITS | Clinical Summary ---
Author Organization [facility] Facility Address [address] [place] [address] Care Team Providers Care Spray I Painter Name Role Phone Maycol Yan MD Primary [...] Visit [facility] [address] [place] [address] Kalen Bloom MD [address] [facility] [address] [place] [address] Health Maintenance Due Date Last Done Comments Diabetes: Ophthalmology Exam 10/05/2020 Diabetes: Pedal Pulse Checked 10/05/2020 Diabetes: Sensory Foot Exam 10/05/2020 Diabetes: Visual Foot Exam 10/05/2020 Pneumococcal Vaccine: 50+ Years (2 of 2 - PCV) 07/05/2023 07/05/2022 Diabetes: Hemoglobin A1C 07/13/2023 023, 03/06/2020 Influenza Vaccine (Season Ended) 2025 07/05/2022 Pneumococcal Vaccine: Peds ( 0 to 5 Years) and At-Risk Patients (6 to 49 Years) Discontinued 07/05/2022 Hepatitis B Vaccine Aged Out No [...] Most Recently Relevant to Health Maintenance Insurance Medicare [facility] Medicare [facility] Care Teams Spray I Painter Relationship Specialty Start Date End Date Maycol Yan MD [address] [address] PCP - General Family Medicine 10/06/20
--- OUTSIDE RECORDS SUMMARY | 2024-12-31 11:48 | XMS_ITS ---
Author Organization [facility] Address [address] [place] [address] Care Team Providers Care Physical Education Professor Name Role Phone Maycol Yan MD Primary Care Provider Tony Ambrose Unavailable [phone] Allergies Allergen (clinical drug ingredient) Drug/Non Drug [...] Ordered Date Performed Result Body Sit e 78021-YTOUEXL NAIL, 6 OR MORE 08/27/2024 N/A 35820-ZFRW SKIN LESIONS, OVER 4 08/27/2024 N/A Encounters Encounter Location Date Provider Diagnosis [facility] [address] [address] 08/27/2024 Tony Mann Type 2 diabetes mellitus [...] Treatment Pending Test Test Name Order Date 47755-ZHAKCJR NAIL, 6 OR MORE 08/27/2024 66639-WMOO SKIN LESIONS, OVER 4 08/27/20 Next Appt Details Follow Up: prn, Reason: Provider Name:Tony Mann , 02/25/2025 09:15:00 AM, [address] [place] [address], [phone], Procedure Notes * Category Sub-Category Detail Notes [...] of a nail nipper and/or dremel-type grinder set up operator jig, to a more viable healthy nail plate [...] to maintain effectiveness in symptomatic relief - 96056 Keratoma Treatment Parring or Cutting o f [...] instrumentation by the physician of record - 74470, Q8 Progress Notes * Candace RODRIGUEZ SDOB:[birth year] (89 yo F)Acc No.[id number]:08/27/2024 Progress Note Patient:Candace STREET Provider:?Tony Mann DPM :1935???Age:89 Y???Sex:Female D ate:08/27/2024 Address:[address] [place], [place] [address] Pcp:Maycol Yan MD Subjective: * Chief Complaints: [...] 12/2018triple bypass 03/12/20 * Hospitalization/Major Diagno stic Procedure:?[facility] 12/01/2015 * [...] (HH) 6.7 * Examination: ???Vascular: ?DP PULSES (B):?14, B/L.?PT PULSES (B):?1/4, RIGHT, 0/4, B/L.?CAPILLARY FILL [...] to treatment,Improvement??? Plan: * Treatment: 2.?Tinea unguium?Procedure: 59130-PEXLXBU NAIL, 6 OR MORE * Procedures:?Debride Nail [...] of a nail nipper and/or dremel-type grinder set up operator jig, to a more viable healthy nail plate [...] to maintain effectiveness in symptomatic relief - 05711.?Keratoma Treatment:?Parring or Cutting of Benign Hyperkeratotic Lesion(s)?(-57) [...] instrumentation by the physician of record - 02723, Q8.? * Procedure Codes:?46014 DEBRI DE NAIL, 6 OR MORE, Modifiers: XS 65736 TRIM SKIN LESIONS, OVER 4, Modifiers: XS [...] DPM Date:?2023 Generated for Ryan kendrick/Carey/Aneesh on:?12/31/2024 11:47 AM EDT History and Physical Notes * [...] 1, B/L , Plantar, Heel, B/L Orthopedic FOOTWEAR EVALUATION: good condit ion, exhibit proper fit and accommodation for pedal [...]
[2024-12-31 14:11] LABS: MANUAL DIFF FLAG NO
[2024-12-31 14:17] LABS: Appearance Urine Clear; Color Urine Yellow; Glucose Urine UA Negative (Negative); Leukocyte Esterase Urine Negative (Negative); Nitrite Urine Negative (Negative); UMIC TRIGGER UA YES; Urine Blood Negative (Negative); Urine Ketones Negative (Negative); Urine Protein 100 (2+) mg/dL (Neg-Trace)
[2024-12-31 14:22] LABS: Bacteria Urine None Seen (None Seen); Hyaline Casts Urine 0-2 /LPF (0-2); RBC Urine 0-2 /HPF (0-2); Squamous Epithelial Cell Urine 0-2 /HPF (0-2); WBC Urine 0-5 /HPF (0-5)
[2024-12-31 14:26] LABS: Basophils Absolute Auto 0.1 X10*3/uL (0.0-0.2); Basophils Percent Auto 0.7 % (0-2); Eosinophils Absolute Auto 0.4 X10*3/uL (0.0-0.4); Hematocrit 36.3 % (37.0-47.0); Imm Gran Abs Auto 0.03 X10*3/uL (0.00-0.03); Imm Gran Pct Auto 0.4 % (0.0-0.4); Lymphocytes Absolute Auto 1.2 X10*3/uL (1.2-4.9); Lymphocytes Percent Auto 17.6 % (20-40); Mean Corpuscular HGB Conc 33.1 g/dl (31.0-35.0); Mean Corpuscular Hemoglobin 29.8 pg (27.0-33.0); Mean Corpuscular Volume 90.1 fL (80.0-98.0); Mean Platelet Volume 10.1 fL (9.4-12.3); Monocytes Absolute Auto 0.9 X10*3/uL (0.1-1.2); Monocytes Percent Auto 12.6 % (2-11); Neutrophils Absolute Auto 4.5 x10*3/uL (2.0-8.3); Neutrophils Percent Auto 63.7 % (45-73); Platelet Count 328 X10*3/uL (160-400); Red Blood Count 4.03 X10*6/uL (4.20-5.50); Red Cell Distribution Width 12.5 % (11.0-16.0); White Blood Count 7.1 X10*3/uL (4.8-10.8)
[2024-12-31 14:56] LABS: Creatinine Urine 66.69 mg/dL; Microalbum/Creatinine Ratio Ur 652.2 ug/mg cr (<30)
[2024-12-31 14:56] LABS: Alanine Aminotransferase 13 U/L (0-31); Albumin Level 3.9 g/dL (3.5-5.0); Alkaline Phosphatase 84 U/L (39-117); Anion Gap 14 (12-20); Aspartate Amino Transferase 21 U/L (5-31); Bilirubin Total 0.9 mg/dL (0.0-1.0); Blood Urea Nitrogen 18 mg/dL (9-16); Calcium 9.1 mg/dL (8.4-10.2); Carbon Dioxide 23 mmol/L (22-29); Chloride 107 mmol/L (96-108); Cholesterol 118 mg/dL (<200); Estimated Glomerular Filt Rate > 60; Glucose Fasting 127 mg/dL (60-99); HDL Cholesterol 50 mg/dL (>40); LDL Cholesterol Calculated 47 mg/dL (<100); Potassium 4.5 mmol/L (3.3-5.1); Sodium 139 mmol/L (135-145); Total Protein 6.9 g/dL (6.5-8.0); Triglycerides 108 mg/dL (<150)
[2024-12-31 15:13] LABS: TSH reflex Free T4 2.72 uIU/mL (0.32-4.0)
== END 2024-12-31 10:20 | disposition home or self-care (01) ==
LOC: HO.WFDLDS 10:19
PROVIDERS: Visit Provider Family Medicine
DX: Z00.00 Encounter for general adult medical examination without abnormal findings (principal); I10 Essential (primary) hypertension
CPT/HCPCS: 36415; 80053; 80061; 81001; 82043; 82570; 84443; 85025

== ENCOUNTER 2025-01-01 11:12 | Outpatient (AMB) | payer MEDICARE, SELFPAY ==
--- NOTE | 2025-01-01 11:53 | MHC.PC.OV ---
Vital Signs 01/01/25 12:05 Height 4 ft 11 in Weight 139 lb BMI 28.1 BP 124/62 Blood Pressure Location Lt brachial Position Sitting Respiration 16 Pulse 65 Pulse Source Pulse Oximeter Temp 97.8 F Temp Source Oral Pulse Oximetry (%) 97 Oxygen Delivery Method Room Air Intake Visit Reasons: f/u diabetes, chronic conditions Allergies latex [LATEX] Allergy (Intermediate, Verified 01/01/25 12:11) ITCHING pineapple [PINEAPPLE] Allergy (Unknown, Verified 01/01/25 12:11) TONGUE SWELLS Medication List - Last Reconciled 01/01/25 by Maycol Yan MD amlodipine 10 mg PO DAILY aspirin 81 mg PO DAILY atorvastatin 40 mg PO DAILY cholecalciferol (vitamin D3) 50 mcg PO DAILY 90 days glipizide ER 10 mg PO DAILY 90 days hydralazine 12.5 mg (1/2 x 25 mg) PO BID losartan 100 mg PO DAILY 90 days metformin 1,000 mg PO BID 90 days miscellaneous medical supply Diabetic shoes, Daily As directed, 999 days Tobacco use date assessed: 11/09/23 Dental Screening Dental Screen Date: 11/09/23 HPI f/u diabetes, chronic conditions HPI Details 89 y/o female presents to f/u diabetes, HTN. A1c today 01/01/25 6.9%. Had been 6.5% before. She is on metformin 1000mg b.i.d, glipizide 10mg daily. Blood pressure today 124/62, 65p. She is on amlopipine 10mg, losartan 100mg. Low vitamin D level. HPI Comments History of Present Illness Details Documentation assistance for Maycol Yan MD, was provided by Bronson Vasquez,? Commercial Hvac Service Technician on 01/01/2025 at 12:43 PM EST. I, Dr. Yan, have read, observed, and verified documentation. 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 Sister No problems noted. Son No problems noted. Son No problems noted. Daughter No problems noted. Daughter No problems noted. Social History Housing: Condominium Patient Tobacco Use Status: Never used Tobacco e-Cigarette/Vaping Use: Never Used Second Hand Smoke Exposure: No Advance Directives Date on File: 06/10/20 service: No Current occupational status: retired Current occupational exposures/hazards: No Cognitive needs: No Hearing needs: No Vision needs: No Questionnaire Thrive Questionnaire Date Thrive assessed: 10/02/24 I am a: Patient What is your living situation today?: I have a steady place to live Within the past 12 months, did the food you bought not last and you didn't have the money to get more?: Never true Within the past 12 months, did you worry whether your food would run out before you got money to buy more?: Never true Do you have trouble paying for medicines?: No Do you have trouble getting transportation to medical appointments?: No Do you have trouble paying your heating and electricity bill?: No Do you have trouble taking care of your child, family member or friend?: No Do you have trouble with day-to-day activities such as bathing, preparing meals, shopping, managing finances, etc.?: No Are you currently unemployed and looking for a job?: No Are you interested in more education?: No Please select the resources that you would like help with: None Currently or been in a relationship where the following occur: No concerns reported THRIVE Score: 0 JUAN LUIS-7 AMB Questionnaire JUAN LUIS-7 Date JUAN LUIS - 7 assessed: 11/09/23 Source: Developed by Drs. Ace Cooper, Sophie Woody, Man Cerna and colleagues, with an educational shannan from [employer] Physical exam (Primary Care) Vital Signs: Last Vital Signs Temp 97.8 F 01/01/25 12:05 Pulse 65 01/01/25 12:05 Resp 16 01/01/25 12:05 BP 124/62 01/01/25 12:05 Pulse Ox 97 01/01/25 12:05 Oxygen Delivery Method Room Air 01/01/25 12:05 BMI result Body Mass Index 28.1 Tobacco/Smoking Status: Tobacco use Status Tobacco use date assessed 11/09/23 01/01/25 11:54 Patient Tobacco Use Status Never used Tobacco 01/01/25 11:54 e-Cigarette/Vaping Use Never Used 01/01/25 11:54 Thrive Assessment: Date of Thrive Assessment Date Thrive assessed 10/02/24 01/01/25 11:54 Currently or been in a relationship where the following occur: No concerns reported Coding Level of Care Code Est Pt Level 4 (57880) Diagnoses Diabetes type 2, controlled E11.9 Essential hypertension I10 Coronary artery disease I25.10 Low vitamin D level R79.89 Assessment & Plan Assessment & Plan (1) Diabetes type 2, controlled: Code(s): E11.9 - Type 2 diabetes mellitus without complications Category: Medical Plan: A1c?6.9%.??Controlled.??Goal?is?less?than?7.0% Continue?current?medications Continue?diabetic?diet Encouraged?exercise (2) Essential hypertension: Code(s): I10 - Essential (primary) hypertension Category: Medical Plan: Blood?pressure?is?controlled.??Goal?is?less?than?130/80 Continue?current?medications (3) Coronary artery disease: Code(s): I25.10 - Atherosclerotic heart disease of [place] coronary artery without angina pectoris Category: Medical Plan: Stable (4) Low vitamin D level: Code(s): R79.89 - Other specified abnormal findings of blood chemistry Category: Medical Plan: Vitamin-D?level?was?low Started?her?on?vitamin-D?supplement?which?he?is?taking She?can?check?her?vitamin-D?level?prior?to?next?visit.
[2025-01-01 12:05] VITALS: BP 124/62; PULSE 65; RESP 16; TEMP 36.6; O2SAT 97; BMI 28.1
--- OUTSIDE RECORDS SUMMARY | 2025-01-01 12:51 | XMS_ITS ---
Author Organization [facility] Barry Address [address] [place] [address] Care Team Providers Care Traveling Phlebotomist Name Role Phone Maycol Yan MD Primary Care Provider Tony Ambrose Unavailable [phone] Allergies Allergen (clinical drug ingredient) Drug/Non Drug [...] Ordered Date Performed Result Body Sit e 29921-LHHJXGU NAIL, 6 OR MORE 08/27/2024 N/A 01061-UXMH SKIN LESIONS, OVER 4 08/27/2024 N/A Encounters Encounter Location Date Provider Diagnosis [facility] [address] [address] 08/27/2024 Tony Mann Type 2 diabetes mellitus [...] Treatment Pending Test Test Name Order Date 56045-XMUOBYH NAIL, 6 OR MORE 08/27/2024 27304-ZIZB SKIN LESIONS, OVER 4 08/27/20 Next Appt Details Follow Up: prn, Reason: Provider Name:Tony Mann , 02/25/2025 09:15:00 AM, [address] [place] [address], [id number], Procedure Notes * Category Sub-Category Detail Notes [...] use of a nail nipper and/or dremel-type air grinder, to a more viable healthy nail [...] to maintain effectiveness in symptomatic relief - 24611 Keratoma Treatment Parring or Cutting o f [...] instrumentation by the physician of record - 50416, Q8 Progress Notes * Candace RODRIGUEZ SDOB:[birth year] (89 yo F)Acc No.[id number]:08/27/2024 Progress Note Patient:Candace STREET Provider:?Tony Mann DPM :1935???Age:89 Y???Sex:Female D ate:08/27/2024 Address:[address] [place], [place] [phone] Pcp:Maycol Yan MD Subjective: * Chief Complaints: [...] to treatment,Improvement??? Plan: * Treatment: 2.?Tinea unguium?Procedure: 43466-QTCDJKY NAIL, 6 OR MORE * Procedures:?Debride Nail [...] use of a nail nipper and/or dremel-type air grinder, to a more viable healthy nail [...] to maintain effectiveness in symptomatic relief - 29060.?Keratoma Treatment:?Parring or Cutting of Benign Hyperkeratotic Lesion(s)?(-57) [...] instrumentation by the physician of record - 53228, Q8.? * Procedure Codes:?77920 DEBRI DE NAIL, 6 OR MORE, Modifiers: XS 94229 TRIM SKIN LESIONS, OVER 4, Modifiers: XS [...] Mann DPM Date:?2023 Generated for Ryan kendrick/Carey/Aneesh on:?01/01/2025 12:51 PM EDT History and Physical Notes * HPI [...]
--- OUTSIDE RECORDS SUMMARY | 2025-01-01 12:51 | XMS_ITS ---
Author Organization [facility] brayan OvalleBarry Address [address] [place] [address] Care Team Providers Care Hide Inspector And Sorter Name Role Phone Maycol Yan MD Primary Care Provider Tony Ambrose Unavailable [phone] Allergies Allergen (clinical drug ingredient) Drug/Non Drug [...] Ordered Date Performed Result Body Sit e 57050-JCTWRMJ NAIL, 6 OR MORE 11/29/2024 N/A 94393-Pxyxnzfk Plate 11/29/2024 N/A 08544-DPQN SKIN LESIONS, OVER 4 11/29/2024 N/A Encounters Encounter Location Date Provider Diagnosis [facility] [address] [address] 11/29/2024 Tony Mann Type 2 diabetes mellitus [...] Treatment Pending Test Test Name Order Date 98081-XBAICYZ NAIL, 6 OR MORE 11/29/2024 35766-Lmpjyooq Plate 11/29/2024 13161-LBBI SKIN LESIONS, OVER 4 11/30/19 25 Next Appt Details Follow Up: prn, Reason: Provider Name:Tony Mann , 02/25/2025 09:15:00 AM, [address] [place], [address], Procedure Notes * Category Sub-Category Detail Notes [...] was recommended for pain or discomfort - 69174, DIABETES: Pt was advised as to the [...] use of a nail nipper and/or dremel-type internal grinder, to a more viable healthy nail [...] to maintain effectiveness in symptomatic relief - 15413 Keratoma Treatment Parring or Cutting o f [...] instrumentation by the physician of record - 66236, Q8 Progress Notes * Candace RODRIGUEZ SDOB:[birth year] (89 yo F)Acc No.[id number]:11/29/2024 Progress Note Patient:?Candace RODRIGUEZ S Provider:?Tony Mann DPM :1935???Age:89 Y???Sex:Female D ate:11/29/2024 Address:[address] [place], [place] [phone] Pcp:Maycol Yan MD Subjective: * Chief Complaints: [...] 12/2018triple bypass 03/12/20 * Hospitalization/Major Diagno stic Procedure:?[facility] for High Blood Pressure 12/01/2015 * Family [...] nail border,?T5??? Plan: * Treatment: 2.?Tinea unguium?Procedure: 07700-OGZWPZQ NAIL, 6 OR MORE 3.?Ingrown nail?Procedure: 52933-Sprwzcce Plate * Procedures:?Debride Nail 6-10:?Nail debridement?Due to [...] use of a nail nipper and/or dremel-type internal grinder, to a more viable healthy nail [...] to maintain effectiveness in symptomatic relief - 83125.?Keratoma Treatment:?Parring or Cutting of Benign Hyperkeratotic Lesion(s)?(-57) [...] instrumentation by the physician of record - 78448, Q8.?Nail Avulsion:?Location?Lateral nail border,?T5.?Anesthesia?2cc of 1 percent [...] was recommended for pain or discomfort - 37555, DIABETES: Pt was advised as to the risk of delayed or nonhealing due to diabetes. Pt is to call the office with any questions, concerns, or complications.? * Procedure Codes:?41188 DEBRI DE NAIL, 6 OR MORE, Modifiers: XS 50822 Avulsion Plate, Modifiers: XS , [id number] TRIM SKIN LESIONS, OVER 4, Modifiers: XS , Q8 * Follow Up:?prn * Images: * Sign off status: Completed true * Provider:?Tony Mann DPM Date:?2024 Generated for Ryan kendrick/Carey/Tameraitting on:?01/01/2025 12:51 PM EDT History and Physical [...]
--- OUTSIDE RECORDS SUMMARY | 2025-01-01 12:51 | XMS_ITS | Patient Health Record ---
Author Organization [facility] brayan Blairs Address [address] [facility] [address] [place] [address] Care Team Providers Care Home Improvement Installer Name Role Phone Maycol Yan MD Primary Care Provider Tony Ambrose Unavailable [phone] Allergies Allergen (clinical drug ingredient) Drug/Non Drug [...] Problem Acquired hammer toe of right foot (3251242371589 105) Other hammer toe(s) (acquired), right foot (M20.41) Active confirmed Response to treatment,I mprovement Problem Type 2 diabetes mellitus with peripheral angiopathy (808586195) Type 2 diabetes mellitus with diabetic peripheral angiopathy without gangrene (E11.51) Active confirmed Problem Acquired hammer toe of left foot (5030123052732 103) Other hammer toe(s) (acquired), left foot (M20.42) Active confirmed Response to treatment,I mprovement Vital Signs Blood pressure diastolic 60 mm Hg 11/29/2024 Height 4 ft 11 in in 11/29/2024 Blood pressure systolic 116 mm Hg 11/29/2024 Weight 138 lbs 11/29/2024 BMI 27.87 kg/m2 11/29/2024 Procedures Procedure Date Ordered Date Performed Result Body Sit e 88971-GCUHDPA NAIL, 6 OR MORE 03/15/2024 N/A 63321-EALP SKIN LESIONS, OVER 4 03/15/2024 N/A 23618-KEBWALO NAIL, 6 OR MORE 05/24/2024 N/A 23682-Nonnisja Plate 05/24/2024 N/A 69496-LNMI SKIN LESIONS, OVER 4 05/24/2024 N/A 92780-OIMOBRV NAIL, 6 OR MORE 08/27/2024 N/A 20503-HSOP SKIN LESIONS, OVER 4 08/27/2024 N/A 77859-OXUDWAD NAIL, 6 OR MORE 11/29/2024 N/A 33599-Mpmrfxix Plate 11/29/2024 N/A 50221-JVVO SKIN LESIONS, OVER 4 11/29/2024 N/A Encounters Encounter Location Date Provider Diagnosis [address] [address] 03/15/2024 Tonymoisés Mann Type 2 diabetes mellitus with diabetic peripheral angiopathy without gangrene E11.51 ; Tinea unguium B35.1 ; Pain in right toe(s) M79.674 and Pain in left toe(s) M79.[address] [address] 05/24/2024 Tonymoisés Mann Type 2 diabetes mellitus with diabetic peripheral angiopathy without gangrene E11.51 ; Tinea unguium B35.1 ; Pain in right toe(s) M79.674 ; Pain in left toe(s) M79.675 and Ingrown nail L60.[address] [address] 08/27/2024 Tony Mann Type 2 diabetes mellitus with diabetic peripheral angiopathy without gangrene E11.51 ; Tinea unguium B35.1 ; Pain in right toe(s) M79.674 ; Pain in left toe(s) M79.675 ; Other hammer toe(s) (acquired), right foot M20.41 and Other hammer toe(s) (acquired), left foot M20.[address] [address] 11/29/2024 Tonymoisés Mann Type 2 diabetes mellitus [...] X ray : Foot, right 3V 02/14/2023 73296-GZBDRSR NAIL, 6 OR MORE 02/14/2023 80787-FEYFBRH NAIL, 6 OR MORE 05/09/2023 67765-NALPTHO NAIL, 6 OR MORE 08/01/2023 82306-ODHIPOW NAIL, 6 OR MORE 07/15/2022 01655-IPHJBAG NAIL, 6 OR MORE 09/23/2022 81976-PYUBICA NAIL, 6 OR MORE 12/02/2022 81191-UTXVRZL NAIL, 6 OR MORE 05/03/2022 44725-JUIKGJO NAIL, 6 OR MORE 02/15/2022 92153-PLFWVPC NAIL, 6 OR MORE 07/06/2021 74864-EBZHQSN NAIL, 6 OR MORE 11/23/2021 37807-GMRABHZ NAIL, 6 OR MORE 10/24/2023 30408-KBZBODJ NAIL, 6 OR MORE 12/29/2023 14643-WSYNXSY NAIL, 6 OR MORE 03/15/2024 56499-QQGKJNJ NAIL, 6 OR MORE 05/24/2024 33301-BDVAVKW NAIL, 6 OR MORE 08/27/2024 67420-PQFMORK NAIL, 6 OR MORE 11/29/2024 85069-LQPQWSP NAIL, 6 OR MORE 09/18/2015 55090-MLGUBPG NAIL, 6 OR MORE 12/01/2015 88807-DIYGZRY NAIL, 6 OR MORE 03/01/2016 39403-ZYQDHHZ NAIL, 6 OR MORE 06/03/2016 52718-MSRURCK NAIL, 6 OR MORE 09/06/2016 03867-CHEPEQB NAIL, 6 OR MORE 12/06/2016 55470-ZHYLGWK NAIL, 6 OR MORE 09/26/2014 86145-RKSJRZH NAIL, 6 OR MORE 12/19/2014 27677-KXUXGYF NAIL, 6 OR MORE 02/27/2015 84598-JFLHSUW NAIL, 6 OR MORE 06/12/2015 41575-JSTCWTO NAIL, 6 OR MORE 05/17/2011 48364-DPTMNVI NAIL, 6 OR MORE 08/02/2011 25318-ACHRMAZ NAIL, 6 OR MORE 10/11/2011 63080-UYBPPGV NAIL, 6 OR MORE 01/10/2012 51487-PZNUBNY NAIL, 6 OR MORE 05/08/2012 14945-DAOFCMM NAIL, 6 OR MORE 08/07/2012 87381-ZMSCOGN NAIL, 6 OR MORE 11/27/2012 53906-ZGPZTBG NAIL, 6 OR MORE 02/08/2013 55995-YTMUWGB NAIL, 6 OR MORE 05/31/2013 25595-LHPAWWD NAIL, 6 OR MORE 08/06/2013 78510-MAGUDKL NAIL, 6 OR MORE 10/25/2013 39308-TYQNPOK NAIL, 6 OR MORE 01/03/2014 58606-GUKFMMK NAIL, 6 OR MORE 04/04/2014 08053-PXLBONI NAIL, 6 OR MORE 06/24/2014 05054-UZHOZIX NAIL, 6 OR MORE 03/10/2017 22924-CMYCHYC NAIL, 6 OR MORE 06/16/2017 78043-RZDGTDN NAIL, 6 OR MORE 09/15/2017 28572-TGODFWB NAIL, 6 OR MORE 12/15/2017 19066-EUTVLSW NAIL, 6 OR MORE 03/09/2018 56285-KUEQOZH NAIL, 6 OR MORE 06/08/2018 08477-RNUAKDH NAIL, 6 OR MORE 09/21/2018 88193-KXEAHBK NAIL, 6 OR MORE 12/21/2018 60359-MQJMVVP NAIL, 6 OR MORE 03/22/2019 04237-PCBEVVI NAIL, 6 OR MORE 06/21/2019 95674-IOLKLTE NAIL, 6 OR MORE 10/04/2019 45408-QNVKRJD NAIL, 6 OR MORE 01/17/2020 39801-DTDWGBS NAIL, 6 OR MORE 04/10/2020 59611-DCYRREQ NAIL, 6 OR MORE 07/14/2020 15115-BKHJKIZ NAIL, 6 OR MORE 10/13/2020 09524-UHAJSWN NAIL, 6 OR MORE 01/05/2021 55188-MUZNZWP NAIL, 6 OR MORE 04/06/2021 55376-Jaeietik Plate 04/06/2021 02873-Ekbzxmpo Plate 01/05/2021 29829-Oziwxbbm Plate 10/13/2020 68395-Sciwuvuw Plate 07/14/2020 27529-Hyhwegrh Plate 04/10/2020 50980-Uifhptlv Plate 01/17/2020 27475-Qtrkxpdw Plate 10/04/2019 07942-Gytpkrzo Plate 06/21/2019 81798-Uxxfdetm Plate 03/22/2019 31116-Tvstqogg Plate 12/21/2018 72539-Xsozbrum Plate 06/08/2018 33440-Niojmmej Plate 03/09/2018 43330-Mwivdyut Plate 12/15/2017 57629-Iokhrahn Plate 09/15/2017 51030-Gvvxkauq Plate 06/16/2017 67143-Hkbhsczl Plate 03/10/2017 15823-Wjhvihnv Plate 06/24/2014 27208-Kythclct Plate 04/04/2014 83817-Asxvaajj Plate 01/03/2014 61346-Proonhdo Plate 10/25/2013 21645-Nwkpetbn Plate 08/06/2013 96728-Jjaoalse Plate 05/31/2013 80975-Cgmuusea Plate 02/08/2013 43377-Aacdyjms Plate 11/27/2012 32712-Kkxxsbyl Plate 08/07/2012 04136-Zbagfyud Plate 05/08/2012 53541-Hoddyupx Plate 01/10/2012 90732-Bxsektpl Plate 08/02/2011 99448-Gsqxijlw Plate 10/11/2011 43961-Yuhuontx Plate 05/17/2011 66452-Pvugkcdw Plate 06/12/2015 62709-Bcovulzv Plate 02/27/2015 39446-Mknycmku Plate 12/19/2014 78518-Yowffmen Plate 09/26/2014 88100-Scswihkz Plate 12/06/2016 78204-Pjtjtifc Plate 09/06/2016 06134-Dyluyyec Plate 03/01/2016 54927-Ktmqtrxi Plate 09/18/2015 95576-Wazalnyl Plate 05/24/2024 08932-Oreydnhj Plate 11/29/2024 43766-Hvpqbgma Plate 12/29/2023 21076-Qktdkivk Plate 10/24/2023 13792-Bmguobvb Plate 09/23/2022 75678-Eojabyhn Plate 08/01/2023 53512-Ylskayjd Plate 11/23/2021 26114-Nunuzclq Plate 07/06/2021 55656-Peqdgjyb Plate 02/15/2022 90720-Jvliyiet Plate 05/03/2022 67132-Uiiztigm Plate 12/02/2022 10311-Wuoqsdto Plate 09/21/2018 66714-Dfsvaqiy Plate 05/09/2023 04320-Ratpelel Plate 02/14/2023 30790-Oiwlhuvo Plate Each Additional 45953-Uredxmeu Plate Each Additional 32525-Yjqopqjn Plate Each Additional 10/2020 03695-Axukbqfs Plate Each Additional 17832-Zmopfxqn Plate Each Additional 48169-Cdqvrvmx Plate Each Additional 12/2016 88059-Bvgernwj Plate Each Additional 01778-Gdexdyqd Plate Each Additional 61114-Pfsyebbz Plate Each Additional 70309-Fuiakymb Plate Each Additional 05/2015 76455-Lnypglog Plate Each Additional 10822-Imilamxq Plate Each Additional 57854-Nhkpdynl Plate Each Additional 03/2012 18742-Rnqinjez Plate Each Additional 04/2012 94493-Xzbpdxjc Plate Each Additional 12/2011 82307-Mkpkrmur Plate Each Additional 12/2011 79686-Fvokwbhc Plate Each Additional 64380-Ohcoavze Plate Each Additional 03/2013 64235-Tmvlvild Plate Each Additional 12542-Upfvajrf Plate Each Additional 11/2012 72790-Efuzejop Plate Each Additional 62691-Zpehfvrh Plate Each Additional 10/2013 48023-Aehfqsiu Plate Each Additional 09/2013 13304-Byhgsfgv Plate Each Additional 54464-Uuaszvsa Plate Each Additional 03/2017 61576-Nyfqevsg Plate Each Additional 20098-Cimqqizq Plate Each Additional 08/2018 41020-Wwdrdkrm Plate Each Additional 93959-Ivjfzobv Plate Each Additional 02/2018 58501-Metjavee Plate Each Additional 01/2018 98639-Uazscauh Plate Each Additional 24479-Hgmyagpt Plate Each Additional 08800-Kcrnxham Plate Each Additional 23467-Sgdmwhxn Plate Each Additional 97519-Drrdshnt Plate Each Additional 12061-Inmcjdwt Plate Each Additional 03/2020 00778-Pjwxikop Plate Each Additional 06/2020 46003-Pmtcpuxl Plate Each Additional 05/2021 23467-Aeyvddkv Plate Each Additional 12/2020 04002-Fhzjewkz Plate Each Additional 11/2020 99223- Debride <25 sq cm 12/02/2011 32602 I&D ABSCESS- SIMPLE,SINGLE 012 60259-QIWA SKIN LESIONS, OVER 4 10/24/19 24 84631-TWEU SKIN LESIONS, OVER 4 12/29/19 24 11894-PRLQ SKIN LESIONS, OVER 4 03/15/20 07359-AUEP SKIN LESIONS, OVER 4 11/30/19 52893-UYXV SKIN LESIONS, OVER 4 08/27/20 43766-ORLM SKIN LESIONS, OVER 4 05/24/20 24 33541-WGZD SKIN LESIONS, 2 TO 4 11/24/19 58559-ZDPF SKIN LESIONS, 2 TO 4 07/06/20 21 81382-IDDP SKIN LESIONS, 2 TO 4 02/16/20 22 58951-DOHF SKIN LESIONS, 2 TO 4 05/03/20 22 62635-SMRF SKIN LESIONS, 2 TO 4 07/15/20 22 37300-KHFL SKIN LESIONS, 2 TO 4 12/03/19 23 98784-ATFH SKIN LESIONS, 2 TO 4 09/23/19 23 66317-JEOS SKIN LESIONS, 2 TO 4 02/15/20 23 62678-WNPS SKIN LESIONS, 2 TO 4 05/09/20 23 21786-SLBV SKIN LESIONS, 2 TO 4 08/01/20 23 92573-ITEJ SKIN LESIONS, 2 TO 4 06/12/20 15 01574-JWKE SKIN LESIONS, 2 TO 4 02/28/20 15 00893-GGUY SKIN LESIONS, 2 TO 4 12/20/19 15 24877-STQH SKIN LESIONS, 2 TO 4 09/26/19 15 76370-EIZH SKIN LESIONS, 2 TO 4 03/10/20 17 16089-GODP SKIN LESIONS, 2 TO 4 12/07/19 17 70180-DKLP SKIN LESIONS, 2 TO 4 09/06/19 17 56201-WWIV SKIN LESIONS, 2 TO 4 06/03/20 16 98490-CUUZ SKIN LESIONS, 2 TO 4 09/18/19 16 65087-UACP SKIN LESIONS, 2 TO 4 03/01/20 16 54018-KARW SKIN LESIONS, 2 TO 4 12/01/19 16 88435-ZQLK SKIN LESIONS, 2 TO 4 04/06/20 21 80952-GKSE SKIN LESIONS, 2 TO 4 01/06/20 21 50899-RTSO SKIN LESIONS, 2 TO 4 10/13/19 21 13024-PHEE SKIN LESIONS, 2 TO 4 07/14/20 20 41401-JVUG SKIN LESIONS, 2 TO 4 04/10/20 20 94802-ZXHO SKIN LESIONS, 2 TO 4 01/17/20 20 05030-RXTA SKIN LESIONS, 2 TO 4 10/04/19 20 77022-KAQM SKIN LESIONS, 2 TO 4 06/21/20 19 00469-JUKX SKIN LESIONS, 2 TO 4 03/22/20 19 30935-NHDC SKIN LESIONS, 2 TO 4 12/22/19 19 57940-TSRI SKIN LESIONS, 2 TO 4 09/21/19 19 36337-SCOM SKIN LESIONS, 2 TO 4 06/08/20 18 72671-NENO SKIN LESIONS, 2 TO 4 03/09/20 18 12820-SEWO SKIN LESIONS, 2 TO 4 12/16/19 18 05432-UZSR SKIN LESIONS, 2 TO 4 09/15/19 18 99572-GAZG SKIN LESIONS, 2 TO 4 06/16/20 17 HEMOGLOBIN A1C (GLYCOHEMOGLOBIN) 020 Next Appt Details Provider Name:Tony Cote Mackenzie , 02/25/2025 09:15:00 AM, [address] [place] [address], [phone], Insurance Providers Payer Name Payer Address Payer Phone Subscriber Number Group Number Insured Name Patient Relationship to Insured Coverage Start Date Coverage End Date Medicare National [employer] [address] [place] [address] [id number] Candace Rodriguez Self - [facility] is the [facility] [address] [place] [address] [phone] [id number] Candace Rodriguez Self - patient is the insured Medical (General) History Medical History History ICD Code high blood pressure Cholesterol rheumatic fever Arthritis anemia type II diabetes Surgical History Surgery Date(Month/Year) hysterectomy 1970 right knee replacement 09/20/2012 left knee replacement 01/06/2014 cataracts 11/2018, 12/2018 triple bypass 03/12/20 Hospitalization History Reason Date(Month/Year) [facility] for High Blood Pressure 12/01/2015
--- OUTSIDE RECORDS SUMMARY | 2025-01-01 12:52 | XMS_ITS ---
Author Organization [facility]ayan [place] Address [address] [place] [address] Care Team Providers Care Hard Metals Hand Engraver Name Role Phone Maycol Yan MD Primary Care Provider Tony Ambrose Unavailable [phone] Allergies Allergen (clinical drug ingredient) Drug/Non Drug [...] Ordered Date Performed Result Body Sit e 69216-TAEXUVD NAIL, 6 OR MORE 05/24/2024 N/A 65668-Iljyyyaq Plate 05/24/2024 N/A 92256-SFHK SKIN LESIONS, OVER 4 05/24/2024 N/A Encounters Encounter Location Date Provider Diagnosis [facility] [address] [address] 05/24/2024 Tony Mann Type 2 diabetes mellitus [...] Treatment Pending Test Test Name Order Date 57286-UDRCKVE NAIL, 6 OR MORE 05/24/2024 11476-Nwpstpbn Plate 05/24/2024 99306-RQXR SKIN LESIONS, OVER 4 05/24/20 24 Next Appt Details Follow Up: prn, Reason: Provider Name:Tony Mann , 02/25/2025 09:15:00 AM, [address] [place], [address], Procedure Notes * Category Sub-Category Detail Notes [...] Motrin was recommended for pain or discomfort (10277) , DIABETES: Pt was advised as to [...] use of a nail nipper and/or dremel-type color grinder, to a more viable healthy nail plate or bed tissue 6-10. Silver nitrate used for any petechial bleeding as necessary. Definitive antifungal treatment options have been reviewed and discussed with the patient. The patient chooses, no pharmaceutical tx - 06204 Keratoma Treatment Parring or Cutting o f Benign Hyperkeratotic Lesion(s) (-57) More than 4 Lesions - The Benign hyperkeratotic lesions, as described above were pared, and/or cut utilizing a sterile 15 blade, tissue nippers, and/or dremel - 51726 , Q8 Progress Notes * Candace RODRIGUEZ SDOB:[birth year] (89 yo F)Acc No.[id number]:05/24/2024 Progress Note Patient:?Candace Rodriguez Provider:?Tony Mann DPM :1935???Age:89 Y???Sex:Female D ate:05/24/2024 Address:[address] [place], [place] [address] Pcp:Maycol Yan MD Subjective: * Chief Complaints: [...] 12/2018triple bypass 03/12/20 * Hospitalization/Major Diagno stic Procedure:?[facility] for High Blood Pressure 12/01/2015 * Family [...] yes, walking. ?Marital status: . ?Occupation: Retired [employer]. * Medications:?TakingExtra Dep th Orthopedic Shoes, (1) [...] border, TA? Plan: * Treatment: 2.?Tinea unguium?Procedure: 79810-FIXUJSG NAIL, 6 OR MORE 3.?Ingrown nail?Procedure: 41588-Wfqwsurw Plate * Procedures:?Debride Nail 6-10:?Nail debridement?Performance of this nail treatment by a nonprofessional would put this patients foot and overall health at risk. Therefore, nail debridement was performed extensively to reduce/remove overall nail length, girth, thickness, subungual debris, and necrotic tissue, by manual and/or electrical means through the use of a nail nipper and/or dremel-type color grinder, to a more viable healthy nail plate or bed tissue 6-10. Silver nitrate used for any petechial bleeding as necessary. Definitive antifungal treatment options have been reviewed and discussed with the patient. The patient chooses, no pharmaceutical tx - 67627.?Keratoma Treatment:?Parring or Cutting of Benign Hyperkeratotic Lesion(s)?(-57) More than 4 Lesions - The Benign hyperkeratotic lesions, as described above were pared, and/or cut utilizing a sterile 15 blade, tissue nippers, and/or dremel - 21766 , Q8.?Nail Avulsion:?Location?Lateral nail border , TA.?Anesthesia?2cc [...] Motrin was recommended for pain or discomfort (17968) , DIABETES: Pt was advised as to the risk of delayed or nonhealing due to diabetes. Pt is to call the office with any questions, concerns, or complications.? * Procedure Codes:?38603 DEBRI DE NAIL, 6 OR MORE, Modifiers: XS 55972 Avulsion Plate, Modifiers: XS , [id number] TRIM SKIN LESIONS, OVER 4, Modifiers: XS [...]
--- OUTSIDE RECORDS SUMMARY | 2025-01-01 12:52 | XMS_ITS | Clinical Summary ---
Author Organization [facility] Facility Address [address] [place] [address] Care Team Providers Care Ip Attorney Name Role Phone Maycol Yan MD Primary [...] Visit [facility] [address] [place] [address] Kalen Bloom MD [address] [facility] [address] [place] [address] Health Maintenance Due Date Last [...] Recently Relevant to Health Maintenance Insurance Medicare [facility] Medicare [facility] Care Teams Ip Attorney Relationship Specialty Start Date End Date Maycol Yan MD [address] [address] PCP - General Family Medicine 10/06/20
== END 2025-01-01 12:59 | disposition home or self-care (01) ==
LOC: HO.HMCFM 11:12
PROVIDERS: PCP Family Medicine; Visit Provider Family Medicine
DX: E11.9 Type 2 diabetes mellitus without complications (principal)

== ENCOUNTER → 2025-01-01 11:12 | Outpatient (BNVA) | payer MEDICARE, SELFPAY | PROVIDERS: PCP Family Medicine; Visit Provider Family Medicine | DX: E11.9 Type 2 diabetes mellitus without complications (principal); I25.10 Atherosclerotic heart disease of native coronary artery without angina pectoris; I10 Essential (primary) hypertension; R79.89 Other specified abnormal findings of blood chemistry | CPT/HCPCS: 83036; 99212 ==

== ENCOUNTER 2025-03-31 09:32 | Outpatient (REF) | payer MEDICARE, SELFPAY ==
--- OUTSIDE RECORDS SUMMARY | 2025-03-31 10:20 | XMS_ITS | Patient Health Record ---
Author Organization [facility] Address [address] [place] [address] Care Team Providers Care Cushion Sewer Name Role Phone Juliann(inactive) Adam WALKER Primary Care Provider U Ace Santamaria [phone] Reason For Referral No Information Plan Of Treatment No Information Insurance Providers Payer Name Payer Address Payer Phone Subscriber Number Group Number Insured Name Patient Relationship to Insured Coverage Start Date Coverage End Date MEDICARE OF [place] [address] [place] [address] [phone] [id number] TAMY SHANNON Self - patient is the insured [employer] CLAIMS [address] [place] [phone] [id number] TAMY SHANNON Self - patient is the insured Medical (General) History Medical History History ICD Code hypertension hyperlipidemia Arthritis diabetes mellitus Surgical History Surgery Date(Month/Year) hysterectomy
--- OUTSIDE RECORDS SUMMARY | 2025-03-31 10:20 | XMS_ITS | Clinical Summary ---
Author Organization [facility] Facility Address [address] [place] [address] Care Team Providers Care X Ray Technologist Name Role Phone Maycol Yan MD Primary [...] Visit [facility] [address] [place] [address] Kalen Bloom MD [address] [facility] [address] [place] [address] Health Maintenance Due Date Last Done Comments Diabetes: Ophthalmology Exam 10/05/2020 Diabetes: Pedal Pulse Checked 10/05/2020 Diabetes: Sensory Foot Exam 10/05/2020 Diabetes: Visual Foot Exam 10/05/2020 Pneumococcal Vaccine: 50+ Years (2 of 2 - PCV) 07/05/2023 07/05/2022 Diabetes: Hemoglobin A1C 07/13/2023 023, 03/06/2020 Influenza Vaccine (#1) 2025 07/05/2022 Pneumococcal Vaccine: Peds ( 0 [...] Recently Relevant to Health Maintenance Insurance Medicare [facility] Medicare [facility] Care Teams X Ray Technologist Relationship Specialty Start Date End Date Maycol Yan MD [address] [address] PCP - General Family Medicine 10/06/20
--- OUTSIDE RECORDS SUMMARY | 2025-03-31 10:20 | XMS_ITS | Patient Health Record ---
Author Organization [facility] rbayan [place] Address [address] [facility] [place] [address] Care Team Providers Care Bi Lead Name Role Phone Maycol Yan MD Primary Care Provider Tony Ambrose Unavailable [phone] Allergies Allergen (clinical drug ingredient) Drug/Non Drug [...] Duration) Notes Start Date End Date Status Nightsplint . . . .; Duration: 30 days Active Atorvastatin Calcium 40 MG as directed Orally Active Carvedilol 12.5 MG Orally BID Not-Taking Aspir-81 Active Furosemide 20 MG Orally Once a day Not-Taking Losartan Potassium 50 MG Orally Once a day Not-Taking Extra Depth Orthopedic Shoes, (1) Pair With (3) Pair Custom Heat Molded Multidensity Innersoles Dx: NIDDM/PVD(E11.51), Hammertoe Foot Deformity(M20.41,M20. 42), Preulcerative Skin Lesion(s)(L85.1) Wear Daily; Duration: 365 days 12/29/2023 Active hydroCHLOROthiazide 25 mg Not-Taking Clopidogrel Bisulfate Not-Taking metFORMIN HCl 1000 MG Orally twice a day Active Losartan Potassium 5mg A ctive Hydralazine-HCTZ Act cesia glipiZIDE 5 MG as directed Orally Active Lisinopril 30 mg daily Not -Taking Eucerin . as directed Externally Apply Twice a day to Feet; Duration: 30 days 09/15/2017 Active Diovan Not-Taking amLODIPine Besylate 10 MG 1 tablet Orally Active Lasix Not-Taking Immunizations Vaccine Route Administration Date Status Comme nts Influenza Unknown 09/06/2016 Refused Influenza Unknown 07/05/2022 Administered Influenza Unknown 06/04/2024 Administered Pneumococcal Unknown 07/05/2022 Administered COVID-19 Pfizer BioNTech Vaccine Unknown 07/14/2021 Administered 1st 11/26/2020 2nd 12/19/2020 Social History Tobacco Use: Social History Observation [...] Problem Acquired hammer toe of right foot (1123898115776 105) Other hammer toe(s) (acquired), right foot (M20.41) Active confirmed Response to treatment,I mprovement Problem Type 2 diabetes mellitus with peripheral angiopathy (443509688) Type 2 diabetes mellitus with diabetic peripheral angiopathy without gangrene (E11.51) Active confirmed Problem Acquired hammer toe of left foot (6430883989311 103) Other hammer toe(s) (acquired), left foot (M20.42) Active confirmed Response to treatment,I mprovement Vital Signs Blood pressure diastolic 65 mm Hg 02/25/2025 Height 4 ft 11 in in 02/25/2025 Blood pressure systolic 115 mm Hg 02/25/2025 Weight 138 lbs 02/25/2025 BMI 27.87 kg/m2 02/25/2025 Procedures Procedure Date Ordered Date Performed Result Body Sit e 48672-SWOOFRX NAIL, 6 OR MORE 05/24/2024 N/A 99082-Egchfbzq Plate 05/24/2024 N/A 42490-GDTX SKIN LESIONS, OVER 4 05/24/2024 N/A 13142-WTPEMRX NAIL, 6 OR MORE 08/27/2024 N/A 04200-RTEE SKIN LESIONS, OVER 4 08/27/2024 N/A 64248-WTECNRG NAIL, 6 OR MORE 11/29/2024 N/A 17783-Mxlhoeug Plate 11/29/2024 N/A 58964-REPT SKIN LESIONS, OVER 4 11/29/2024 N/A 67647-YVMILME NAIL, 6 OR MORE 02/25/2025 N/A 32709-GYST SKIN LESIONS, OVER 4 02/25/2025 N/A Encounters Encounter Location Date Provider Diagnosis [address] [address] 05/24/2024 Tony Mackenzie Type 2 diabetes mellitus with diabetic peripheral angiopathy without gangrene E11.51 ; Tinea unguium B35.1 ; Pain in right toe(s) M79.674 ; Pain in left toe(s) M79.675 and Ingrown nail L60.[address] [address] 08/27/2024 Tony Mackenzie Type 2 diabetes mellitus with diabetic peripheral angiopathy without gangrene E11.51 ; Tinea unguium B35.1 ; Pain in right toe(s) M79.674 ; Pain in left toe(s) M79.675 ; Other hammer toe(s) (acquired), right foot M20.41 and Other hammer toe(s) (acquired), left foot M20.[address] [address] 11/29/2024 Tonymoisés ShinMackenzie Type 2 diabetes mellitus with diabetic peripheral angiopathy without gangrene E11.51 ; Tinea unguium B35.1 ; Pain in right toe(s) M79.674 ; Pain in left toe(s) M79.675 and Ingrown nail L60.[address] [address] 02/25/2025 Tony Mackenzie Type 2 diabetes mellitus with diabetic peripheral [...] E11.51) 11/29/2024 Tinea unguium (ICD-10 - B35.1) 02/25/2025 Type 2 diabetes mellitus with diabetic peripheral angiopathy without gangrene (ICD-10 - E11.51) 02/25/2025 Tinea unguium (ICD-10 - B35.1) 11/29/2024 Pain in right toe(s) (ICD-10 - M79.674) 08/27/2024 Pain in right toe(s) (ICD-10 - M79.674) 02/25/2025 Pain in right toe(s) (ICD-10 - M79.674) 05/24/2024 Pain in right toe(s) (ICD-10 - M79.674) 05/24/2024 Pain in left toe(s) (ICD-10 - M79.675) 08/27/2024 Pain in left toe(s) (ICD-10 - M79.675) 11/29/2024 Pain in left toe(s) (ICD-10 - M79.675) 02/25/2025 Pain in left toe(s) (ICD-10 - M79.675) [...] X ray : Foot, right 3V 02/14/2023 80601-ZQESYFV NAIL, 6 OR MORE 02/14/2023 13584-VMSKYPQ NAIL, 6 OR MORE 05/09/2023 35263-PIXIQUC NAIL, 6 OR MORE 08/01/2023 88887-CUGOKNF NAIL, 6 OR MORE 07/15/2022 54370-FOXASUW NAIL, 6 OR MORE 09/23/2022 55482-GBREQAG NAIL, 6 OR MORE 12/02/2022 52565-GDMNMZR NAIL, 6 OR MORE 05/03/2022 67891-IVYNKRQ NAIL, 6 OR MORE 02/15/2022 98790-DOKAVAV NAIL, 6 OR MORE 07/06/2021 59472-GJPZQHA NAIL, 6 OR MORE 11/23/2021 86289-UTSNAJW NAIL, 6 OR MORE 02/25/2025 11443-KJWSSVJ NAIL, 6 OR MORE 10/24/2023 07073-MAGSTFO NAIL, 6 OR MORE 12/29/2023 07756-BFAENII NAIL, 6 OR MORE 03/15/2024 42890-CZYRLBG NAIL, 6 OR MORE 05/24/2024 19044-VNVFZJL NAIL, 6 OR MORE 08/27/2024 57354-VAQMWSN NAIL, 6 OR MORE 11/29/2024 46101-VWXUFRL NAIL, 6 OR MORE 09/18/2015 41861-COWVBOX NAIL, 6 OR MORE 12/01/2015 59190-VOVXGYP NAIL, 6 OR MORE 03/01/2016 85508-CWDKVFR NAIL, 6 OR MORE 06/03/2016 48166-IMIBOQG NAIL, 6 OR MORE 09/06/2016 92143-JXBXVHT NAIL, 6 OR MORE 12/06/2016 60273-MSITDOO NAIL, 6 OR MORE 09/26/2014 62191-ESGLYUF NAIL, 6 OR MORE 12/19/2014 10746-PFBPUOC NAIL, 6 OR MORE 02/27/2015 10718-TOIFCNP NAIL, 6 OR MORE 06/12/2015 46970-VJEGNSC NAIL, 6 OR MORE 05/17/2011 92440-UREMPTL NAIL, 6 OR MORE 08/02/2011 81394-GIJPSZJ NAIL, 6 OR MORE 10/11/2011 71440-ULUCVBL NAIL, 6 OR MORE 01/10/2012 31712-DZYFQZW NAIL, 6 OR MORE 05/08/2012 58427-RAAXENM NAIL, 6 OR MORE 08/07/2012 50840-YSHSEET NAIL, 6 OR MORE 11/27/2012 56628-CGSVXXX NAIL, 6 OR MORE 02/08/2013 44587-XYCONGZ NAIL, 6 OR MORE 05/31/2013 80755-TFNYNFX NAIL, 6 OR MORE 08/06/2013 24455-NQUTWGW NAIL, 6 OR MORE 10/25/2013 80003-WTIXWFX NAIL, 6 OR MORE 01/03/2014 75814-IDLNAJR NAIL, 6 OR MORE 04/04/2014 02379-RVPPOWA NAIL, 6 OR MORE 06/24/2014 29034-LUFPKXF NAIL, 6 OR MORE 03/10/2017 77481-NWXIAPY NAIL, 6 OR MORE 06/16/2017 99092-XETDJAO NAIL, 6 OR MORE 09/15/2017 01846-SRZBDWI NAIL, 6 OR MORE 12/15/2017 99306-AOWHJTU NAIL, 6 OR MORE 03/09/2018 72144-UZHZBVN NAIL, 6 OR MORE 06/08/2018 17912-RYCAODR NAIL, 6 OR MORE 09/21/2018 41717-DOPXGIO NAIL, 6 OR MORE 12/21/2018 50619-FDOEXAL NAIL, 6 OR MORE 03/22/2019 42673-PIYEXCQ NAIL, 6 OR MORE 06/21/2019 87663-DSCNLBA NAIL, 6 OR MORE 10/04/2019 10350-QOUZXST NAIL, 6 OR MORE 01/17/2020 98438-EHNEXGD NAIL, 6 OR MORE 04/10/2020 60961-DZQYYAF NAIL, 6 OR MORE 07/14/2020 47330-URCCJEK NAIL, 6 OR MORE 10/13/2020 14038-FVREIJB NAIL, 6 OR MORE 01/05/2021 84160-ERZFTSN NAIL, 6 OR MORE 04/06/2021 66139-Ffjodiud Plate 04/06/2021 70216-Lhqqvnpd Plate 01/05/2021 48740-Ltpilqzu Plate 10/13/2020 16413-Lopsfzuw Plate 07/14/2020 64946-Lfjhnpqw Plate 04/10/2020 65023-Lgrnpmpm Plate 01/17/2020 44190-Xghusyjd Plate 10/04/2019 83766-Mkyxvjtn Plate 06/21/2019 07879-Fptksyda Plate 03/22/2019 21548-Dkzhlxfn Plate 12/21/2018 59225-Nhakfsua Plate 06/08/2018 99787-Eghrjued Plate 03/09/2018 62608-Shaqfwpd Plate 12/15/2017 33299-Xewmdume Plate 09/15/2017 29817-Mziotqhn Plate 06/16/2017 35642-Ugjzlkqt Plate 03/10/2017 56912-Affsedei Plate 06/24/2014 66983-Numkwthi Plate 04/04/2014 15936-Xhhzwyks Plate 01/03/2014 96250-Fshhabhh Plate 10/25/2013 40137-Esvjuhed Plate 08/06/2013 43150-Pqmscfrr Plate 05/31/2013 20152-Qflbnkml Plate 02/08/2013 80664-Nqmvobmv Plate 11/27/2012 36599-Jtrtahfq Plate 08/07/2012 87043-Werwyque Plate 05/08/2012 88332-Icnbbujl Plate 01/10/2012 04650-Xeudrkjv Plate 08/02/2011 79971-Dhnjgldr Plate 10/11/2011 60815-Tekowtqc Plate 05/17/2011 80612-Qrmosoja Plate 06/12/2015 58470-Penmbstf Plate 02/27/2015 48732-Hprqzaif Plate 12/19/2014 48551-Ddcjfsqa Plate 09/26/2014 65427-Bvlzduoq Plate 12/06/2016 71795-Kmolazky Plate 09/06/2016 01651-Qxkpkvxk Plate 03/01/2016 10909-Jdujkobg Plate 09/18/2015 87358-Noskiojp Plate 05/24/2024 46047-Jlypuvtg Plate 11/29/2024 64118-Rsvjomnq Plate 12/29/2023 87562-Qaoldnkw Plate 10/24/2023 37710-Ftwgrfum Plate 09/23/2022 07810-Nhjwxjcp Plate 08/01/2023 54771-Rculpten Plate 11/23/2021 78784-Prbjnuaa Plate 07/06/2021 89995-Wklcocqj Plate 02/15/2022 31283-Hbfffqcq Plate 05/03/2022 91654-Ddsvgonv Plate 12/02/2022 21808-Erptsnbl Plate 09/21/2018 55223-Dryxkgbs Plate 05/09/2023 28807-Kxorulku Plate 02/14/2023 94831-Ydabewwc Plate Each Additional 92798-Dzbdfose Plate Each Additional 39615-Iacylswn Plate Each Additional 10/2020 53454-Bewfsshc Plate Each Additional 46151-Mqrpokjz Plate Each Additional 62365-Osihzfve Plate Each Additional 12/2016 11997-Eylyqcnn Plate Each Additional 96284-Iwfkdccl Plate Each Additional 77494-Dqepzcxo Plate Each Additional 93731-Qxrbfqqj Plate Each Additional 05/2015 75628-Qudpuufj Plate Each Additional 35193-Lddotfoe Plate Each Additional 26546-Mbzshlhy Plate Each Additional 03/2012 72385-Fqllndij Plate Each Additional 04/2012 21553-Udxyltdy Plate Each Additional 12/2011 92808-Hycwgogx Plate Each Additional 12/2011 17409-Nkdtmnsg Plate Each Additional 26657-Wjfulcpe Plate Each Additional 03/2013 81460-Tfournhg Plate Each Additional 59750-Fonlanbt Plate Each Additional 11/2012 95113-Cfskxyxs Plate Each Additional 27616-Qhvcbqag Plate Each Additional 10/2013 21068-Ddqeolsm Plate Each Additional 09/2013 54299-Khwtwfyb Plate Each Additional 10326-Ssynfsyl Plate Each Additional 03/2017 21101-Hsuabacg Plate Each Additional 48418-Gmyoesjs Plate Each Additional 08/2018 68995-Orvvklgj Plate Each Additional 99741-Xhmqlkci Plate Each Additional 02/2018 44221-Bcuvjsji Plate Each Additional 01/2018 46406-Syzqrucv Plate Each Additional 11400-Jbpbdhgp Plate Each Additional 02162-Evezyfqb Plate Each Additional 48618-Gxmcuerw Plate Each Additional 71660-Rsbdptmb Plate Each Additional 65163-Siehbnbe Plate Each Additional 03/2020 14122-Efvvnpdv Plate Each Additional 06/2020 74185-Lbiqbrej Plate Each Additional 05/2021 20856-Iecvtjds Plate Each Additional 12/2020 44011-Goxgwnmr Plate Each Additional 11/2020 27550- Debride <25 sq cm 12/02/2011 64127 I&D ABSCESS- SIMPLE,SINGLE 012 16817-FYJJ SKIN LESIONS, OVER 4 10/24/19 88111-GIED SKIN LESIONS, OVER 4 12/29/19 77751-JKAQ SKIN LESIONS, OVER 4 03/15/20 81926-WLNH SKIN LESIONS, OVER 4 11/30/19 18742-CJOL SKIN LESIONS, OVER 4 08/27/20 18470-TZYW SKIN LESIONS, OVER 4 05/24/20 93405-GNZV SKIN LESIONS, OVER 4 02/26/20 16413-OGKF SKIN LESIONS, 2 TO 4 11/24/19 22 00308-GAVT SKIN LESIONS, 2 TO 4 07/06/20 21 77212-OHCB SKIN LESIONS, 2 TO 4 02/16/20 22 84551-BZUY SKIN LESIONS, 2 TO 4 05/03/20 22 93201-JJUH SKIN LESIONS, 2 TO 4 07/15/20 22 70525-WGDA SKIN LESIONS, 2 TO 4 12/03/19 23 10859-NHNH SKIN LESIONS, 2 TO 4 09/23/19 23 37482-MJRP SKIN LESIONS, 2 TO 4 02/15/20 23 43741-MTSK SKIN LESIONS, 2 TO 4 05/09/20 23 75422-TIVF SKIN LESIONS, 2 TO 4 08/01/20 23 87410-ISVV SKIN LESIONS, 2 TO 4 06/12/20 15 40777-HOUK SKIN LESIONS, 2 TO 4 02/28/20 15 15464-EYZH SKIN LESIONS, 2 TO 4 12/20/19 15 69649-HTUT SKIN LESIONS, 2 TO 4 09/26/19 15 80912-ACVS SKIN LESIONS, 2 TO 4 03/10/20 17 20853-LPYK SKIN LESIONS, 2 TO 4 12/07/19 17 30850-XXCO SKIN LESIONS, 2 TO 4 01/03/20 17 21659-AEVM SKIN LESIONS, 2 TO 4 06/03/20 16 39258-ODKM SKIN LESIONS, 2 TO 4 09/18/19 16 30989-ZHBL SKIN LESIONS, 2 TO 4 03/01/20 16 27863-TUAP SKIN LESIONS, 2 TO 4 12/01/19 16 30662-PVYI SKIN LESIONS, 2 TO 4 04/06/20 21 28825-NSGJ SKIN LESIONS, 2 TO 4 01/06/20 21 55642-UJJS SKIN LESIONS, 2 TO 4 10/13/19 21 20706-UBAI SKIN LESIONS, 2 TO 4 07/14/20 20 10381-EZLV SKIN LESIONS, 2 TO 4 04/10/20 20 90893-FBCE SKIN LESIONS, 2 TO 4 01/17/20 20 09539-ZWXD SKIN LESIONS, 2 TO 4 10/04/19 20 55828-MRDD SKIN LESIONS, 2 TO 4 06/21/20 19 15069-YYLV SKIN LESIONS, 2 TO 4 03/22/20 19 62685-IQSY SKIN LESIONS, 2 TO 4 12/22/19 19 25734-KCUL SKIN LESIONS, 2 TO 4 09/21/19 19 69243-KCDC SKIN LESIONS, 2 TO 4 06/08/20 18 54319-TJJP SKIN LESIONS, 2 TO 4 03/09/20 18 22657-ZLAP SKIN LESIONS, 2 TO 4 12/16/19 18 18089-YJCX SKIN LESIONS, 2 TO 4 09/15/19 18 44079-CMBC SKIN LESIONS, 2 TO 4 06/16/20 17 HEMOGLOBIN A1C (GLYCOHEMOGLOBIN) 020 Next Appt Details Provider Name:Tony Kera Mann , 05/15/2025 03:45:00 PM, [address] [facility] [address], [place], [address], Insurance Providers Payer Name Payer Address Payer Phone Subscriber Number Group Number Insured Name Patient Relationship to Insured Coverage Start Date Coverage End Date Medicare National [employer]t S[employer] [address] [place] [address] [id number] Candace Rodriguez Self - patient is the insured 2 [employer] [address] [place] [address] [phone] [id number] Candace Rodriguez Self - patient is the insured Medical (General) History Medical History History ICD Code high blood pressure Cholesterol rheumatic fever Arthritis anemia type II diabetes Surgical History Surgery Date(Month/Year) hysterectomy 1970 right knee replacement 09/20/2012 left knee replacement 01/06/2014 cataracts 11/2018, 12/2018 triple bypass 03/12/20 Hospitalization History Reason Date(Month/Year) [facility] for High Blood Pressure 12/01/2015
[2025-03-31 15:10] LABS: Appearance Urine Clear; Glucose Urine UA Negative (Negative); PH 6.0 (5.0-9.0); Specific Gravity - Urine 1.010 (1.005-1.025); UMIC TRIGGER UA YES
[2025-03-31 15:23] LABS: Alanine Aminotransferase 19 U/L (0-31); Albumin Level 4.2 g/dL (3.5-5.0); Alkaline Phosphatase 79 U/L (39-117); Anion Gap 16 (12-20); Aspartate Amino Transferase 31 U/L (5-31); Blood Urea Nitrogen 16 mg/dL (9-16); Calcium 9.3 mg/dL (8.4-10.2); Carbon Dioxide 21 mmol/L (22-29); Chloride 110 mmol/L (96-108); Estimated Glomerular Filt Rate > 60; Potassium 4.6 mmol/L (3.3-5.1); Sodium 142 mmol/L (135-145); Total Protein 6.9 g/dL (6.5-8.0)
== END 2025-03-31 09:33 | disposition home or self-care (01) ==
LOC: HO.WFDLDS 09:32
PROVIDERS: Visit Provider Family Medicine
DX: Z00.00 Encounter for general adult medical examination without abnormal findings (principal); E55.9 Vitamin D deficiency, unspecified
CPT/HCPCS: 36415; 80053; 81001; 81003; 82306

== ENCOUNTER 2025-04-03 13:16 | Outpatient (AMB) | payer MEDICARE, SELFPAY ==
--- OUTSIDE RECORDS SUMMARY | 2025-04-03 13:27 | XMS_ITS | Clinical Summary ---
Author Organization [facility] Facility Address [address] [place] [address] Care Team Providers Care Vibration Technician Name Role Phone Maycol Yan MD Primary [...] Visit [facility] [address] [place] [address] Kalen Bloom MD [address] [facility] [address] [place] [address] Health Maintenance Due Date Last [...] Recently Relevant to Health Maintenance Insurance Medicare [facility] Medicare [facility] Care Teams Vibration Technician Relationship Specialty Start Date End Date Maycol Yan MD [address] [address] PCP - General Family Medicine 10/06/20
--- OUTSIDE RECORDS SUMMARY | 2025-04-03 13:27 | XMS_ITS | Patient Health Record ---
Author Organization [facility] brayan Maringouin Address [address] [place] [address] Care Team Providers Care Crop Scout Name Role Phone Maycol Yan MD Primary Care Provider Tony Ambrose Unavailable [phone] Allergies Allergen (clinical drug ingredient) Drug/Non Drug [...] Problem Acquired hammer toe of right foot ([id number] 105) Other hammer toe(s) (acquired), right foot (M20.41) Active confirmed Response to treatment,I mprovement Problem Type 2 diabetes mellitus with peripheral angiopathy (849760832) Type 2 diabetes mellitus with diabetic peripheral angiopathy without gangrene (E11.51) Active confirmed Problem Acquired hammer toe of left foot ([id number] 103) Other hammer toe(s) (acquired), left foot (M20.42) Active confirmed Response to treatment,I mprovement Vital Signs Blood pressure diastolic 65 mm Hg 02/25/2025 Height 4 ft 11 in in 02/25/2025 Blood pressure systolic 115 mm Hg 02/25/2025 Weight 138 lbs 02/25/2025 BMI 27.87 kg/m2 02/25/2025 Procedures Procedure Date Ordered Date Performed Result Body Sit e 37526-HWEYIMI NAIL, 6 OR MORE 05/24/2024 N/A 31161-Rewvjkol Plate 05/24/2024 N/A 99328-ITGM SKIN LESIONS, OVER 4 05/24/2024 N/A 60438-UZBHQJW NAIL, 6 OR MORE 08/27/2024 N/A 70844-AZVQ SKIN LESIONS, OVER 4 08/27/2024 N/A 53948-WPITJWD NAIL, 6 OR MORE 11/29/2024 N/A 73553-Bfixeegl Plate 11/29/2024 N/A 07374-GRVW SKIN LESIONS, OVER 4 11/29/2024 N/A 72872-QNLIIBM NAIL, 6 OR MORE 02/25/2025 N/A 88771-FTIM SKIN LESIONS, OVER 4 02/25/2025 N/A Encounters Encounter Location Date Provider Diagnosis [address] [address] 05/24/2024 Tony Mackenzie Type 2 diabetes mellitus with diabetic peripheral angiopathy without gangrene E11.51 ; Tinea unguium B35.1 ; Pain in right toe(s) M79.674 ; Pain in left toe(s) M79.675 and Ingrown nail L60.[address] [address] 08/27/2024 Tony Mackenzie Type 2 diabetes mellitus with diabetic peripheral angiopathy without gangrene E11.51 ; Tinea unguium B35.1 ; Pain in right toe(s) M79.674 ; Pain in left toe(s) M79.675 ; Other hammer toe(s) (acquired), right foot M20.41 and Other hammer toe(s) (acquired), left foot M20.[address] [address] 11/29/2024 Tonymoisés ShinMackenzie Type 2 diabetes mellitus with diabetic peripheral angiopathy without gangrene E11.51 ; Tinea unguium B35.1 ; Pain in right toe(s) M79.674 ; Pain in left toe(s) M79.675 and Ingrown nail L60.[address] [address] 02/25/2025 Tony Mackenzie Type 2 diabetes mellitus [...] X ray : Foot, right 3V 02/14/2023 97957-GXVHILI NAIL, 6 OR MORE 02/14/2023 00252-IDVDZKS NAIL, 6 OR MORE 05/09/2023 06387-RJDIGBE NAIL, 6 OR MORE 08/01/2023 28762-NBBCGVB NAIL, 6 OR MORE 07/15/2022 97121-ACKQNKV NAIL, 6 OR MORE 09/23/2022 03963-KKIHUWS NAIL, 6 OR MORE 12/02/2022 65586-XDTMTKZ NAIL, 6 OR MORE 05/03/2022 55361-BMAZBRK NAIL, 6 OR MORE 02/15/2022 95255-GTSFIEO NAIL, 6 OR MORE 07/06/2021 76533-MJPRLLY NAIL, 6 OR MORE 11/23/2021 36641-JQRQASB NAIL, 6 OR MORE 02/25/2025 56749-HEPMDPR NAIL, 6 OR MORE 10/24/2023 58977-FNSFDYV NAIL, 6 OR MORE 12/29/2023 62537-DASJXPP NAIL, 6 OR MORE 03/15/2024 62625-GRJMPWW NAIL, 6 OR MORE 05/24/2024 43688-OOHZTOH NAIL, 6 OR MORE 08/27/2024 57665-EEDFZXP NAIL, 6 OR MORE 11/29/2024 36098-UJHQDVF NAIL, 6 OR MORE 09/18/2015 43397-DOFPDGM NAIL, 6 OR MORE 12/01/2015 89035-YUAESLB NAIL, 6 OR MORE 03/01/2016 68381-BPCGPVS NAIL, 6 OR MORE 06/03/2016 68825-ECEMBZR NAIL, 6 OR MORE 09/06/2016 65384-CVVOHLU NAIL, 6 OR MORE 12/06/2016 46677-MNXKECS NAIL, 6 OR MORE 09/26/2014 17343-ZXPUGEV NAIL, 6 OR MORE 12/19/2014 55171-HEHCVTE NAIL, 6 OR MORE 02/27/2015 30328-MZXPPZU NAIL, 6 OR MORE 06/12/2015 35467-XWIBGDZ NAIL, 6 OR MORE 05/17/2011 52790-THFVYLJ NAIL, 6 OR MORE 08/02/2011 35455-JADZRDB NAIL, 6 OR MORE 10/11/2011 42867-FJTLQAY NAIL, 6 OR MORE 01/10/2012 96795-CWTGICG NAIL, 6 OR MORE 05/08/2012 06794-NQXUCZG NAIL, 6 OR MORE 08/07/2012 75621-UUZEVRT NAIL, 6 OR MORE 11/27/2012 99758-ZHGPDNI NAIL, 6 OR MORE 02/08/2013 16643-ZYFRFAN NAIL, 6 OR MORE 05/31/2013 12515-QLSSXLS NAIL, 6 OR MORE 08/06/2013 26946-HMDPYHA NAIL, 6 OR MORE 10/25/2013 30047-SDDTKRU NAIL, 6 OR MORE 01/03/2014 80499-EJLTTJM NAIL, 6 OR MORE 04/04/2014 76471-SEHKKOK NAIL, 6 OR MORE 06/24/2014 43324-WUMVFEG NAIL, 6 OR MORE 03/10/2017 64903-JEIETCE NAIL, 6 OR MORE 06/16/2017 30162-DEMNPZU NAIL, 6 OR MORE 09/15/2017 96023-AAZVAAJ NAIL, 6 OR MORE 12/15/2017 62678-WLIUCPH NAIL, 6 OR MORE 03/09/2018 03853-SIYWKCD NAIL, 6 OR MORE 06/08/2018 62282-KPGVJUN NAIL, 6 OR MORE 09/21/2018 37589-IGJLIAN NAIL, 6 OR MORE 12/21/2018 86045-XTANGRU NAIL, 6 OR MORE 03/22/2019 80480-LUCJLOZ NAIL, 6 OR MORE 06/21/2019 96182-FHFZXIT NAIL, 6 OR MORE 10/04/2019 90852-ARQMVVM NAIL, 6 OR MORE 01/17/2020 20166-FNZPADA NAIL, 6 OR MORE 04/10/2020 57515-VPFIEKZ NAIL, 6 OR MORE 07/14/2020 33783-JOKCVSQ NAIL, 6 OR MORE 10/13/2020 91082-GTJTSMV NAIL, 6 OR MORE 01/05/2021 46383-EXTKCLE NAIL, 6 OR MORE 04/06/2021 64862-Puwkstdi Plate 04/06/2021 81013-Jqffwiuy Plate 01/05/2021 70918-Plfocqfo Plate 10/13/2020 45265-Sjowviae Plate 07/14/2020 40852-Vsvntsoe Plate 04/10/2020 86118-Gqadcsob Plate 01/17/2020 12285-Vjffotpo Plate 10/04/2019 24270-Nzximznn Plate 06/21/2019 70188-Uuzbojdz Plate 03/22/2019 98892-Fxdaqhjf Plate 12/21/2018 75853-Khqqxjxb Plate 06/08/2018 63340-Jzmswash Plate 03/09/2018 67979-Xwfqwwnp Plate 12/15/2017 81303-Mmmkmktl Plate 09/15/2017 58445-Cttdvxra Plate 06/16/2017 29642-Qhjjkdxz Plate 03/10/2017 30172-Kporqprw Plate 06/24/2014 63078-Lgqermof Plate 04/04/2014 24391-Vbqcudtf Plate 01/03/2014 08662-Atsgsjfc Plate 10/25/2013 46516-Kjwaxbft Plate 08/06/2013 68516-Nrkpvqac Plate 05/31/2013 82852-Ecculuqx Plate 02/08/2013 71916-Tstbxeta Plate 11/27/2012 61599-Cxpakggd Plate 08/07/2012 39113-Pioeqahg Plate 05/08/2012 05694-Upepgngn Plate 01/10/2012 78514-Pwhzupaa Plate 08/02/2011 60876-Zpobrowc Plate 10/11/2011 93263-Kxxdltew Plate 05/17/2011 66091-Bompdmvo Plate 06/12/2015 80456-Iwrrgpup Plate 02/27/2015 03522-Bmhblhjd Plate 12/19/2014 84383-Bhoirrlc Plate 09/26/2014 01334-Tgqtdikv Plate 12/06/2016 29521-Eedbsucq Plate 09/06/2016 50977-Pxportpp Plate 03/01/2016 26331-Ihsnvdiq Plate 09/18/2015 29524-Exaaojad Plate 05/24/2024 17202-Xnokqhoq Plate 11/29/2024 66742-Hnvchzfw Plate 12/29/2023 60944-Rohvdhux Plate 10/24/2023 11478-Bribsbdy Plate 09/23/2022 25572-Fruumrzw Plate 08/01/2023 75503-Wunacvex Plate 11/23/2021 38075-Czgkrlbz Plate 07/06/2021 36705-Kaoklzyr Plate 02/15/2022 22134-Zegpzvvb Plate 05/03/2022 02471-Fwlaebvq Plate 12/02/2022 39623-Ucytqdfq Plate 09/21/2018 98934-Thytlfht Plate 05/09/2023 95300-Mamekwyn Plate 02/14/2023 69044-Tgtcwbuo Plate Each Additional 85017-Nwhdfqwf Plate Each Additional 94394-Ysnzoyfu Plate Each Additional 10/2020 07028-Minoxepj Plate Each Additional 99575-Dbwpsplk Plate Each Additional 21505-Drgchpmt Plate Each Additional 12/2016 37122-Dowbkgvd Plate Each Additional 11217-Omkuctgc Plate Each Additional 87417-Umjrfjza Plate Each Additional 37567-Xdcjjate Plate Each Additional 05/2015 45589-Zhukhenp Plate Each Additional 98225-Vvmbmkrl Plate Each Additional 34541-Meyxjvpm Plate Each Additional 03/2012 55207-Kjgekxha Plate Each Additional 04/2012 98305-Ykxhmunc Plate Each Additional 12/2011 46006-Dzkqobvz Plate Each Additional 12/2011 53318-Defnvvae Plate Each Additional 52401-Dftwrmxw Plate Each Additional 03/2013 47725-Pshrgxih Plate Each Additional 61980-Teprytqz Plate Each Additional 11/2012 50300-Vzicuvtw Plate Each Additional 94128-Ulfrlala Plate Each Additional 10/2013 64812-Mgkdriza Plate Each Additional 09/2013 40382-Aqgjbsbq Plate Each Additional 51783-Vwisqbql Plate Each Additional 03/2017 10027-Ttujsgqx Plate Each Additional 23631-Fxcpldnm Plate Each Additional 08/2018 66073-Tpuiwsvv Plate Each Additional 40005-Cmtessbx Plate Each Additional 02/2018 97778-Xjgnamiy Plate Each Additional 01/2018 21789-Wapihcdd Plate Each Additional 12675-Thtsyjck Plate Each Additional 82897-Lrfazzik Plate Each Additional 74439-Nrheepet Plate Each Additional 93054-Xixlewlh Plate Each Additional 83682-Amhietcq Plate Each Additional 03/2020 56702-Fuxpdzad Plate Each Additional 06/2020 48230-Aunqdudj Plate Each Additional 05/2021 06305-Lczyiwtx Plate Each Additional 12/2020 67785-Jxavreve Plate Each Additional 11/2020 06715- Debride <25 sq cm 12/02/2011 22258 I&D ABSCESS- SIMPLE,SINGLE 012 92126-OKHT SKIN LESIONS, OVER 4 10/24/19 05061-IZKK SKIN LESIONS, OVER 4 12/29/19 43474-AWDY SKIN LESIONS, OVER 4 03/15/20 63645-LSPT SKIN LESIONS, OVER 4 11/30/19 41733-VPTN SKIN LESIONS, OVER 4 08/27/20 05466-ACLV SKIN LESIONS, OVER 4 05/24/20 96287-MMXR SKIN LESIONS, OVER 4 02/26/20 04426-NJNN SKIN LESIONS, 2 TO 4 11/24/19 22 43859-VGWO SKIN LESIONS, 2 TO 4 07/06/20 21 31565-YHDK SKIN LESIONS, 2 TO 4 02/16/20 22 00065-ELSP SKIN LESIONS, 2 TO 4 05/03/20 22 91502-UNRC SKIN LESIONS, 2 TO 4 07/15/20 22 51029-HCUG SKIN LESIONS, 2 TO 4 12/03/19 23 45655-LCML SKIN LESIONS, 2 TO 4 09/23/19 23 82868-BRXZ SKIN LESIONS, 2 TO 4 02/15/20 23 30654-MQXR SKIN LESIONS, 2 TO 4 05/09/20 23 91551-FXOE SKIN LESIONS, 2 TO 4 08/01/20 23 20573-TAFT SKIN LESIONS, 2 TO 4 06/12/20 15 18780-GRIG SKIN LESIONS, 2 TO 4 02/28/20 15 00571-EQSI SKIN LESIONS, 2 TO 4 12/20/19 15 75554-HNCJ SKIN LESIONS, 2 TO 4 09/26/19 15 58142-HBYX SKIN LESIONS, 2 TO 4 03/10/20 17 20255-ADYD SKIN LESIONS, 2 TO 4 12/07/19 17 22974-SBMK SKIN LESIONS, 2 TO 4 01/03/20 17 64915-JTWT SKIN LESIONS, 2 TO 4 06/03/20 16 47064-OVUL SKIN LESIONS, 2 TO 4 09/18/19 16 95546-VWDQ SKIN LESIONS, 2 TO 4 03/01/20 16 52337-SJSB SKIN LESIONS, 2 TO 4 12/01/19 16 50163-SBRZ SKIN LESIONS, 2 TO 4 04/06/20 21 24494-FENS SKIN LESIONS, 2 TO 4 01/06/20 21 67325-BHIA SKIN LESIONS, 2 TO 4 10/13/19 21 70327-RXKG SKIN LESIONS, 2 TO 4 07/14/20 20 54133-UDAS SKIN LESIONS, 2 TO 4 04/10/20 20 62875-VEIG SKIN LESIONS, 2 TO 4 01/17/20 20 72340-UTFN SKIN LESIONS, 2 TO 4 10/04/19 20 84228-DTZV SKIN LESIONS, 2 TO 4 06/21/20 19 01501-MHDZ SKIN LESIONS, 2 TO 4 03/22/20 19 35246-OXMT SKIN LESIONS, 2 TO 4 12/22/19 19 63888-EIIC SKIN LESIONS, 2 TO 4 09/21/19 19 85604-HOFH SKIN LESIONS, 2 TO 4 06/08/20 18 35510-MCHO SKIN LESIONS, 2 TO 4 03/09/20 18 55050-VJDD SKIN LESIONS, 2 TO 4 12/16/19 18 13874-QWBC SKIN LESIONS, 2 TO 4 09/15/19 18 28880-EETX SKIN LESIONS, 2 TO 4 06/16/20 17 HEMOGLOBIN A1C (GLYCOHEMOGLOBIN) 020 Next Appt Details Provider Name:Tony Kera Mann , 05/15/2025 03:45:00 PM, [address] [facility] [address], [place], [address], Insurance Providers Payer Name Payer Address Payer Phone Subscriber Number Group Number Insured Name Patient Relationship to Insured Coverage Start Date Coverage End Date Medicare National Govt Svcs Inc [address] [place] [address] [id number] Candace Rodriguez Self - patient is the insured 2 [employer] [address] [place] [address] [phone] [id number] Candace Rodriguez Self - patient is the insured Medical (General) History Medical History History ICD Code high blood pressure Cholesterol rheumatic fever Arthritis anemia type II diabetes Surgical History Surgery Date(Month/Year) hysterectomy 1970 right knee replacement 09/20/2012 left knee replacement 01/06/2014 cataracts 11/2018, 12/2018 triple bypass 03/12/20 Hospitalization History Reason Date(Month/Year) [facility] for High Blood Pressure 12/01/2015
--- OUTSIDE RECORDS SUMMARY | 2025-04-03 13:28 | XMS_ITS | Patient Health Record ---
Author Organization [facility] Address [address] [place] [address] Care Team Providers Care Joy Operator Helper Name Role Phone Juliann(inactive) Adam WALKER Primary Care Provider U Ace Santamaria [phone] Reason For Referral No Information Plan Of Treatment No Information Insurance Providers Payer Name Payer Address Payer Phone Subscriber Number Group Number Insured Name Patient Relationship to Insured Coverage Start Date Coverage End Date MEDICARE OF [place] [address] [place] [address] [phone] [id number] TAMY SHANNON Self - patient is the insured [employer] CLAIMS [address] [place] [address] [phone] [id number] TAMY SHANNON Self - patient is the insured Medical (General) History Medical History History ICD Code hypertension hyperlipidemia Arthritis diabetes mellitus Surgical History Surgery Date(Month/Year) hysterectomy
--- NOTE | 2025-04-03 13:48 | A.OFFPC_ITS ---
Vital Signs 04/03/25 13:53 Height 4 ft 11 in Weight 137 lb 4 oz BMI 27.7 BP 136/50 L Blood Pressure Location Rt brachial Position Sitting Respiration 14 Pulse 69 Pulse Source Pulse Oximeter Temp 98.3 F Temp Source Oral Pulse Oximetry (%) 95 Oxygen Delivery Method Room Air Intake Visit Reasons: f/u diabetes, HTN Intake Note: patient is scheduled for htn and follow up dm Manager Title Required: No Allergies latex (LATEX) Allergy (Intermediate, Verified 04/03/25 13:49) ITCHING pineapple (PINEAPPLE) Allergy (Unknown, Verified 04/03/25 13:49) TONGUE SWELLS Medication List - Last Reconciled 04/03/25 by Maycol Yan MD amlodipine 10 mg PO DAILY aspirin 81 mg PO DAILY atorvastatin 40 mg PO DAILY cholecalciferol (vitamin D3) 50 mcg PO DAILY 90 days glipizide ER 10 mg PO DAILY 90 days hydralazine 12.5 mg (1/2 x 25 mg) PO BID losartan 100 mg PO DAILY 90 days metformin 1,000 mg PO BID 90 days miscellaneous medical supply Diabetic shoes, Daily As directed, 999 days Tobacco use date assessed: 11/09/23 Dental Screening Dental Screen Date: 11/09/23 HPI f/u diabetes, HTN HPI Details 89 y/o female presents to f/u diabetes, HTN. Last A1c 6.9% in December. A1c today 6.8%. She is on glipizide 10mg, metformin 1000mg b.i.d. Blood pressure today 136/50, 69p. She is on amlodipine 10mg, losartan 100mg, hydralazine 12.5mg b.i.d. HPI Comments History of Present Illness Details Documentation assistance for Maycol Yan MD, was provided by Bronson Vasquez,? Information Systems Audit Manager on 04/03/2025 at 2:27 PM EST. I, Dr. Yan, have read, observed, and verified documentation. ?? 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 Sister No problems noted. Son No problems noted. Son No problems noted. Daughter No problems noted. Daughter No problems noted. Social History Housing: Condominium Patient Tobacco Use Status: Never used Tobacco e-Cigarette/Vaping Use: Never Used Second Hand Smoke Exposure: No Advance Directives Date on File: 06/10/20 service: No Current occupational status: retired Current occupational exposures/hazards: No Cognitive needs: No Hearing needs: No Vision needs: No Questionnaire Thrive Questionnaire Date Thrive assessed: 10/02/24 I am a: Patient What is your living situation today?: I have a steady place to live Within the past 12 months, did the food you bought not last and you didn't have the money to get more?: Never true Within the past 12 months, did you worry whether your food would run out before you got money to buy more?: Never true Do you have trouble paying for medicines?: No Do you have trouble getting transportation to medical appointments?: No Do you have trouble paying your heating and electricity bill?: No Do you have trouble taking care of your child, family member or friend?: No Do you have trouble with day-to-day activities such as bathing, preparing meals, shopping, managing finances, etc.?: No Are you currently unemployed and looking for a job?: No Are you interested in more education?: No Please select the resources that you would like help with: None Currently or been in a relationship where the following occur: No concerns reported THRIVE Score: 0 JUAN LUIS-7 AMB Questionnaire JUAN LUIS-7 Date JUAN LUIS - 7 assessed: 11/09/23 Source: Developed by Drs. Ace Cooper, Sophie Woody, Man Cerna and colleagues, with an educational shannan from [employer]. Review of Systems Const Denies chills, Denies fatigue, Denies fever(s), Denies headache(s) and Denies weakness ENT Denies dizziness and Denies headache(s) Card Denies dyspnea Resp Denies cough, Denies dyspnea, Denies wheezing and Denies other (shortness of breath) Musc Denies numbness and Denies tingling Neuro Denies dizziness, Denies headache(s), Denies numbness, Denies tingling and Denies weakness Psych Denies anxiety and Denies depression Endo Denies fatigue Aller/Immun Denies wheezing Physical exam (Primary Care) Vital Signs: Last Vital Signs Temp 98.3 F 04/03/25 13:53 Pulse 69 04/03/25 13:53 Resp 14 04/03/25 13:53 BP 136/50 L 04/03/25 13:53 Pulse Ox 95 04/03/25 13:53 Oxygen Delivery Method Room Air 04/03/25 13:53 BMI result Body Mass Index 27.7 Tobacco/Smoking Status: Tobacco use Status Tobacco use date assessed 11/09/23 04/03/25 13:58 Patient Tobacco Use Status Never used Tobacco 04/03/25 13:58 e-Cigarette/Vaping Use Never Used 04/03/25 13:58 Thrive Assessment: Date of Thrive Assessment Date Thrive assessed 10/02/24 04/03/25 13:58 Currently or been in a relationship where the following occur: No concerns rep orted Const General: well developed; No acute distress Nutritional Appearance: well nourished Orientation/consciousness: patient oriented x3 HENMT Head: Yes normocephalic and Yes atraumatic Eyes General: appearance normal, both eyes and all related structures Pupils: Equal, round and reactive pupils present EOM: EOMs intact bilaterally Resp Effort & Inspection: normal respiratory effort Neuro General: patient oriented x3 and gait normal Cranial nerves: Yes Equal, round and reactive pupils present Psych Affect: normal affect Coding Level of Care Code Est Pt Level 3 (38597) Diagnoses Diabetes type 2, controlled E11.9 Essential hypertension I10 Coronary artery disease I25.10 Assessment & Plan Assessment & Plan (1) Diabetes type 2, controlled: Code(s): E11.9 - Type 2 diabetes mellitus without complications Category: Medical Plan: A1c 6.8%. Good control. Goal is less than 7.0% Continue current medication regimen. She does note some fatigue after going out shopping in the daytime. Will give her a script to test blood sugars. Also encouraged good hydration and regular meals. She will call me if she is having any low blood sugars. (2) Essential hypertension: Code(s): I10 - Essential (primary) hypertension Category: Medical Plan: Blood pressure 136/50. Fair control. Goal is less than 130/80 She is mildly stress today as her isn't feeling well No medication changes today. Continue salt/sodium control and regular exercise. Will continue monitor (3) Coronary artery disease: Code(s): I25.10 - Atherosclerotic heart disease of [place] coronary artery without angina pectoris Category: Medical Plan: Stable Medications: New blood sugar diagnostic (Accu-Chek Guide test strips) Test blood sugar twice daily As directed, 90 days 200 ea 3RF E11.9 - Type 2 diabetes mellitus without complications lancets (Accu-Chek Softclix Lancets) Test blood sugar twice daily As directed, 90 days 200 ea 0RF E11.9 - Type 2 diabetes mellitus without complications blood-glucose meter (Accu-Chek Guide Glucose Meter) As directed, 999 days 1 ea 0 RF E11.9 - Type 2 diabetes mellitus without complications
[2025-04-03 13:53] VITALS: BP 136/50; PULSE 69; RESP 14; TEMP 36.8; O2SAT 95; BMI 27.7
== END 2025-04-03 14:37 | disposition home or self-care (01) ==
LOC: HO.HMCFM 13:17
PROVIDERS: PCP Family Medicine; Visit Provider Family Medicine
DX: E11.9 Type 2 diabetes mellitus without complications (principal); I10 Essential (primary) hypertension; I25.10 Atherosclerotic heart disease of native coronary artery without angina pectoris

== ENCOUNTER → 2025-04-03 13:16 | Outpatient (BNVA) | payer MEDICARE, SELFPAY | PROVIDERS: PCP Family Medicine; Visit Provider Family Medicine | DX: E11.9 Type 2 diabetes mellitus without complications (principal); I10 Essential (primary) hypertension; I25.10 Atherosclerotic heart disease of native coronary artery without angina pectoris | CPT/HCPCS: 99212 ==

== ENCOUNTER 2025-07-10 13:02 | Outpatient (AMB) | payer MEDICARE, SELFPAY ==
--- NOTE | 2025-07-10 13:11 | MHC.PC.OV ---
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 Allergies latex (LATEX) Allergy (Intermediate, Verified 07/10/25 13:13) ITCHING pineapple (PINEAPPLE) Allergy (Unknown, Verified 07/10/25 13:13) TONGUE SWELLS Medication List - Last Reconciled 07/10/25 by Maycol Yan MD amlodipine 10 mg PO DAILY aspirin 81 mg PO DAILY atorvastatin 40 mg PO DAILY blood sugar diagnostic (Accu-Chek Guide test strips) Test blood sugar twice daily As directed, 90 days blood-glucose meter (Accu-Chek Guide Glucose Meter) As directed, 999 days cholecalciferol (vitamin D3) 50 mcg PO DAILY 90 days glipizide ER 10 mg PO DAILY 90 days hydralazine 12.5 mg (1/2 x 25 mg) PO BID lancets (Accu-Chek Softclix Lancets) Test blood sugar twice daily As directed, 90 days losartan 100 mg PO DAILY 90 days metformin 1,000 mg PO BID 90 days miscellaneous medical supply Diabetic shoes, Daily As directed, 999 days spironolactone 25 mg PO DAILY 30 days Tobacco use date assessed: 07/10/25 Fall risk assessment: No Falls in past year Last assessed Fall Risk: 07/10/25 Dental Screening Dental Screen Date: 07/10/25 Did you have a dental visit in the last 12 months?: No Did you have a dental problem in the last 6 months where you did not have access to dental care?: No Was dental information given to patient?: Patient declined (Has dentures) HPI f/u diabetes/HTN HPI Details 89 y/o female presents to f//u diabetes, HTN. Blood pressure today 138/56, 67p. She is on amlodipine 10mg, losartan 100mg, hydralazine 12.5mg b.i.d. A1c today 07/10/25 6.4%. 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 Sister No problems noted. Son No problems noted. Son No problems noted. Daughter No problems noted. Daughter No problems noted. Social History Housing: Condominium Patient Tobacco Use Status: Never used Tobacco e-Cigarette/Vaping Use: Never Used Second Hand Smoke Exposure: No Advance Directives Date on File: 06/10/20 service: No Current occupational status: retired Current occupational exposures/hazards: No Cognitive needs: No Hearing needs: No Vision needs: No Questionnaire Thrive Questionnaire Date Thrive assessed: 10/02/24 I am a: Patient What is your living situation today?: I have a steady place to live Within the past 12 months, did the food you bought not last and you didn't have the money to get more?: Never true Within the past 12 months, did you worry whether your food would run out before you got money to buy more?: Never true Do you have trouble paying for medicines?: No Do you have trouble getting transportation to medical appointments?: No Do you have trouble paying your heating and electricity bill?: No Do you have trouble taking care of your child, family member or friend?: No Do you have trouble with day-to-day activities such as bathing, preparing meals, shopping, managing finances, etc.?: No Are you currently unemployed and looking for a job?: No Are you interested in more education?: No Please select the resources that you would like help with: None Currently or been in a relationship where the following occur: No concerns reported THRIVE Score: 0 AUDIT C Alcohol Use Questionnaire (AUDIT-C) 1. How often do you have a drink containing alcohol?: Never 3. How often do you have six or more drinks on one occasion?: Never Total Score: 0 JUAN LUIS-7 AMB Questionnaire JUAN LUIS-7 Date JUAN LUIS - 7 assessed: 11/09/23 Source: Developed by Drs. Ace Cooper, Sophie Woody, Man Cerna and colleagues, with an educational shannan from [employer]. Review of Systems Const Denies chills, Denies fatigue, Denies fever(s), Denies headache(s) and Denies weakness ENT Denies dizziness and Denies headache(s) Card Denies dyspnea Resp Denies cough, Denies dyspnea, Denies wheezing and Denies other (shortness of breath) Musc Denies numbness and Denies tingling Neuro Denies dizziness, Denies headache(s), Denies numbness, Denies tingling and Denies weakness Psych Denies anxiety and Denies depression Endo Denies fatigue Aller/Immun Denies wheezing Physical exam (Primary Care) Vital Signs: Last Vital Signs Temp 98.4 F 07/10/25 13:14 Pulse 67 07/10/25 13:14 Resp 14 07/10/25 13:14 BP 138/56 L 07/10/25 13:14 Pulse Ox 94 07/10/25 13:14 Oxygen Delivery Method Room Air 07/10/25 13:14 Tobacco/Smoking Status: Tobacco use Status Tobacco use date assessed 07/10/25 07/10/25 13:20 Patient Tobacco Use Status Never used Tobacco 07/10/25 13:11 e-Cigarette/Vaping Use Never Used 07/10/25 13:11 Thrive Assessment: Date of Thrive Assessment Date Thrive assessed 10/02/24 07/10/25 13:11 Currently or been in a relationship where the following occur: No concerns reported Const General: well developed; No acute distress Nutritional Appearance: well nourished Orientation/consciousness: patient oriented x3 [facility] Head: Yes normocephalic and Yes atraumatic Eyes General: appearance normal, both eyes and all related structures Pupils: Equal, round and reactive pupils present EOM: EOMs intact bilaterally Resp Effort & Inspection: normal respiratory effort Auscultation: clear to auscultation bilaterally Cardio Rate: regular rate Rhythm: regular rhythm Heart sounds: S1 normal heart sound present, S2 normal heart sound present, no gallops, no murmurs and no rubs Neuro General: patient oriented x3 and gait normal Cranial nerves: Yes Equal, round and reactive pupils present Psych Affect: normal affect Results AMB Hemoglobin A1c AMB Hemoglobin A1c 6.4 % Last Edit by Lo Yin CMA on 07/10/25 13:49 Results Reviewed Results Reviewed: Laboratory Last Values Hgb A1c (Clinic) 6.4 % (4.0-6.0) H 07/10/25 13:22 Coding Level of Care Code Est Pt Level 4 (35270) Diagnoses Essential hypertension I10 Coronary artery disease I25.10 Diabetes type 2, controlled E11.9 Assessment & Plan Assessment & Plan (1) Essential hypertension: Code(s): I10 - Essential (primary) hypertension Category: Medical Plan: Blood pressure is again a little high. Goal is less than 130/80 Continue amlodipine, hydralazine and losartan. Adding a low dose of spironolactone (2) Coronary artery disease: Code(s): I25.10 - Atherosclerotic heart disease of [place] coronary artery without angina pectoris Category: Medical Plan: Stable (3) Diabetes type 2, controlled: Code(s): E11.9 - Type 2 diabetes mellitus without complications Category: Medical Plan: A1c 6.4%. Good control. Goal is less than 7.0% Continue current medication Orders: Orders AMB Hemoglobin A1c Today E11.9 - Type 2 diabetes mellitus without complications Medications: New spironolactone 25 mg PO DAILY 30 tabs 1RF 30 days Refilled losartan 100 mg PO DAILY 90 tabs 1RF 90 days
[2025-07-10 13:14] VITALS: BP 138/56; PULSE 67; RESP 14; TEMP 36.9; O2SAT 94
--- OUTSIDE RECORDS SUMMARY | 2025-07-10 15:56 | XMS_ITS | Clinical Summary ---
Author Organization [facility] Facility Address [address] [place] [id number] Care Team Providers Care Medical Services Assistant Name Role Phone Maycol Yan MD Primary Care Provider [phone] Allergies Active Allergy Reactions Criticality Noted Date [...] Active Problems Problem Noted Date Diagnosed Date Type 2 diabetes mellitus with peripheral angiopa thy 05/08/2025 Acquired hammer toe of right foot 05/08/2025 Stage 3a chronic kidney disease 04/29/2021 Chronic kidney disease stage 2 10/09/2020 Essential hypertension 10/09/2020 Hypertensive renal disease 10/09/2020 Proteinuria 10/09/2020 Renal disorder due to type 2 diabetes mellitus 0 10/09/2020 Encounters Date Type Department Care Team Description 05/08/2025 1:15 PM EDT Office Visit [facility] [address] [place] [address] Kalen Bloom MD Hypertensive renal disease (Primary Dx); Essential hypertension; Chronic kidney disease stage 2 from Last 3 Months Family History Medical History Relation Comments Diabetes [...] Sign Reading Time Taken Comments Blood Pressure 134/58 05/08/2025 1:03 PM EDT Pulse 70 05/08/2025 1:03 PM EDT Temperature - - Respiratory Rate - - Oxygen Saturation 98% 05/08/2025 1:03 PM EDT Inhaled Oxygen Concentration - - Weight 62.1 kg (136 lb 12.8 oz) 05/08/2025 1:03 PM EDT Height 152.4 cm (5') 03/11/2019 12:00 PM EDT Body Mass Index 26.72 03/11/2019 12:00 PM EDT Plan of Treatment Upcoming Encounters Date Type Department Care Team (Late st Contact Info) Description 05/07/2026 1:00 PM EDT Office Visit [facility] [address] [place] [address] Kalen Bloom MD [address] [facility] [address] [place] [address] Health Maintenance Due Date Last Done Comments Diabetes: Ophthalmology Exam 10/05/2020 Diabetes: Pedal Pulse Checked 10/05/2020 Diabetes: Sensory Foot Exam 10/05/2020 Diabetes: Visual Foot Exam 10/05/2020 Pneumococcal Vaccine: 50+ Years (2 of 2 - PCV) 07/05/2023 07/05/2022 Diabetes: Hemoglobin A1C 07/13/2023 023, 03/06/2020 Influenza Vaccine (#1) 2025 4, 07/05/2022 Pneumococcal Vaccine: Peds ( 0 to [...] Hemoglobin A1C 6.6(A) 4.0 - 6.0 04/12/2023 [facility] Provider LAB BLOOD ORDERABLES Missy l Result from Last 3 Months or Most Recently Relevant to Health Maintenance Insurance Medicare [facility] Medicare [facility] Care Teams Medical Services Assistant Relationship Specialty Start Date End Date Maycol Yan MD [address] [address] PCP - General Family Medicine 10/06/20
--- OUTSIDE RECORDS SUMMARY | 2025-07-10 15:56 | XMS_ITS | Patient Health Record ---
[facility] brayan Frankewing Address [address] [facility] [facility] [place] [address] Care Team Providers Care Culinary Worker Name Role Phone Maycol Yan MD Primary Care Provider Tony Ambrose Unavailable [phone] Allergies Allergen (clinical drug ingredient) Drug/Non Drug Allergy documented on EMR Reaction Allergy Type Onset Date Status Pineapple Concentrate Unknown Drug Allergy Active Adhesive rash Allergy Active Results Component Value Reference Range Notes HEMOGLOBIN A1C (GLYCOHEMOGLO BIN) Reviewed date:11/29/2024 09:59:31 AM Interpretation: Performing Lab: Notes/Report: HEMOGLOBIN A1C % (HH) 6.6 HEMOGLOBIN A1C (GLYCOHEMOGLO BIN) Reviewed date:05/15/2025 04:13:27 PM Interpretation: Performing Lab: Notes/Report: HEMOGLOBIN A1C % (HH) 6.5 Reason For Referral No Information Medications Medication SIG (Take, Route, Frequency, Duration) Notes Start Date End Date Status Extra Depth Orthopedic Shoes, (1) Pair With (3) Pair Custom Heat Molded Multidensity Innersoles Dx: NIDDM/PVD(E11.51), Hammertoe Foot Deformity(M20.41,M20. 42), Preulcerative Skin Lesion(s)(L85.1) Wear Daily; Duration: 365 days Active hydroCHLOROthiazide 25 mg Not-Taking Losartan Potassium 50 MG Orally Once a day Not-Taking metFORMIN HCl 1000 MG Orally twice a day Active Clopidogrel Bisulfate Not-Taking Hydralazine-HCTZ Act cesia Losartan Potassium 5mg A ctive Eucerin . as directed Externally Apply Twice a day to Feet; Duration: 30 days 09/15/2017 Active Diovan Not-Taking glipiZIDE 5 MG as directed Orally Active Lisinopril 30 mg daily Not -Taking Furosemide 20 MG Orally Once a day Not-Taking Atorvastatin Calcium 40 MG as directed Orally Active Carvedilol 12.5 MG Orally BID Not-Taking amLODIPine Besylate 10 MG 1 tablet Orally Active Lasix Not-Taking Nightsplint . . . .; Duration: 30 days Active Aspir-81 Active Immunizations Vaccine Route Administration Date Status Comme [...] Problem Acquired hammer toe of right foot ([id number] 105) Other hammer toe(s) (acquired), right foot (M20.41) Active confirmed Response to treatment,I mprovement Problem Type 2 diabetes mellitus with peripheral angiopathy (737207109) Type 2 diabetes mellitus with diabetic peripheral angiopathy without gangrene (E11.51) Active confirmed Problem Acquired hammer toe of left foot (3617786465124 103) Other hammer toe(s) (acquired), left foot (M20.42) Active confirmed Response to treatment,I mprovement Vital Signs Blood pressure diastolic 58 mm Hg 05/15/2025 Height 4 ft 11 in in 05/15/2025 Blood pressure systolic 134 mm Hg 05/15/2025 Weight 134 lbs 05/15/2025 BMI 27.06 kg/m2 05/15/2025 Procedures Procedure Date Ordered Date Performed Result Body Sit e 79067-PZMOSDQ NAIL, 6 OR MORE 08/27/2024 N/A 92607-ROYT SKIN LESIONS, OVER 4 08/27/2024 N/A 14329-XHBWZFC NAIL, 6 OR MORE 11/29/2024 N/A 31522-Vywmafol Plate 11/29/2024 N/A 32476-CWHC SKIN LESIONS, OVER 4 11/29/2024 N/A 32013-MOOPALG NAIL, 6 OR MORE 02/25/2025 N/A 90321-HPWO SKIN LESIONS, OVER 4 02/25/2025 N/A 57183-ISKUVAH NAIL, 6 OR MORE 05/15/2025 N/A 80765-OKOM SKIN LESIONS, OVER 4 05/15/2025 N/A Encounters Encounter Location Date Provider Diagnosis [address] [address] 08/27/2024 Tonymoisés ShinMackenzie Type 2 diabetes mellitus with diabetic peripheral angiopathy without gangrene E11.51 ; Tinea unguium B35.1 ; Pain in right toe(s) M79.674 ; Pain in left toe(s) M79.675 ; Other hammer toe(s) (acquired), right foot M20.41 and Other hammer toe(s) (acquired), left foot M20.[address] [address] 11/29/2024 Tonymoisés ShinMackenzie Type 2 diabetes mellitus with diabetic peripheral angiopathy without gangrene E11.51 ; Tinea unguium B35.1 ; Pain in right toe(s) M79.674 ; Pain in left toe(s) M79.675 and Ingrown nail L60.[address] [address] 02/25/2025 Tonymoisés ShinMackenzie Type 2 diabetes mellitus with diabetic peripheral angiopathy without gangrene E11.51 ; Tinea unguium B35.1 ; Pain in right toe(s) M79.674 and Pain in left toe(s) M79.675 [facility] [address] [address] 05/15/2025 Tony Mackenzie Type 2 diabetes mellitus with diabetic peripheral angiopathy without gangrene E11.51 ; Tinea unguium B35.1 ; Pain in right toe(s) M79.674 ; Pain in left toe(s) M79.675 ; Other hammer toe(s) (acquired), left foot M20.42 and Other hammer toe(s) (acquired), right foot M20.41 Assessments Encounter Date Diagnosis (ICD Code) Assessment [...] E11.51) 02/25/2025 Tinea unguium (ICD-10 - B35.1) 05/15/2025 Type 2 diabetes mellitus with diabetic peripheral angiopathy without gangrene (ICD-10 - E11.51) 05/15/2025 Tinea unguium (ICD-10 - B35.1) 05/15/2025 Pain in right toe(s) (ICD-10 - M79.674) 02/25/2025 Pain in right toe(s) (ICD-10 - M79.674) 11/29/2024 Pain in right toe(s) (ICD-10 - M79.674) 08/27/2024 Pain in right toe(s) (ICD-10 - M79.674) 08/27/2024 Pain in left toe(s) (ICD-10 - M79.675) 11/29/2024 Pain in left toe(s) (ICD-10 - M79.675) 02/25/2025 Pain in left toe(s) (ICD-10 - M79.675) 05/15/2025 Pain in left toe(s) (ICD-10 - M79.675) 05/15/2025 Other hammer toe(s) (acquired), left foot (ICD-10 - M20.42) 11/29/2024 Ingrown nail (ICD-10 - L60.0) 08/27/2024 Other hammer toe(s) (acquired), right foot (ICD-10 - M20.41) Response to treatment,Impro vement 08/27/2024 Other hammer toe(s) (acquired), left foot (ICD-10 - M20.42) Response to treatment,Impro vement 05/15/2025 Other hammer toe(s) (acquired), right foot (ICD-10 - M20.41) Patient Educated with: DIABETIC FOOT CARE INSTRUCTIONS.p df (DIABETIC FOOT CARE INSTRUCTIONS.p df) Plan Of Treatment Pending Test Test Name Order Date Hemoglobin A1c 06/12/2015 Hemoglobin A1c 02/15/2017 X ray : Foot, right 3V 04/20/2022 X ray : Foot, right 3V 02/14/2023 85398-QZKXJSX NAIL, 6 OR MORE 02/14/2023 55750-OBBOUAD NAIL, 6 OR MORE 05/09/2023 33120-VNINXXO NAIL, 6 OR MORE 08/01/2023 88977-RXRYZBN NAIL, 6 OR MORE 07/15/2022 14174-WGVXGSC NAIL, 6 OR MORE 09/23/2022 09621-NQEFUDE NAIL, 6 OR MORE 12/02/2022 41961-QFXHBZO NAIL, 6 OR MORE 05/03/2022 86858-HCJLMSV NAIL, 6 OR MORE 02/15/2022 04202-KGFUGTX NAIL, 6 OR MORE 07/06/2021 49952-MWXMQFS NAIL, 6 OR MORE 11/23/2021 82041-CPMEXGM NAIL, 6 OR MORE 02/25/2025 49004-XKMOFYO NAIL, 6 OR MORE 05/15/2025 53612-FBZKQGA NAIL, 6 OR MORE 10/24/2023 35824-YJIRIZS NAIL, 6 OR MORE 12/29/2023 75189-ONRRNHA NAIL, 6 OR MORE 03/15/2024 43041-YLANFOR NAIL, 6 OR MORE 05/24/2024 42120-UWTTJYI NAIL, 6 OR MORE 08/27/2024 20592-YVHDBDU NAIL, 6 OR MORE 11/29/2024 42515-QCLRDXN NAIL, 6 OR MORE 09/18/2015 13260-JHSXQKT NAIL, 6 OR MORE 12/01/2015 07750-RMORYKX NAIL, 6 OR MORE 03/01/2016 08359-YSCTAIY NAIL, 6 OR MORE 06/03/2016 28342-EJTUHPG NAIL, 6 OR MORE 09/06/2016 99039-CCVRHBZ NAIL, 6 OR MORE 12/06/2016 47494-UBNCDQM NAIL, 6 OR MORE 09/26/2014 28426-HCXJLKU NAIL, 6 OR MORE 12/19/2014 06263-DBSMJYA NAIL, 6 OR MORE 02/27/2015 03466-ADLXEMU NAIL, 6 OR MORE 06/12/2015 73133-JVYXULL NAIL, 6 OR MORE 05/17/2011 06743-NAWYLYR NAIL, 6 OR MORE 08/02/2011 88520-KQYHGVL NAIL, 6 OR MORE 10/11/2011 77835-NCLBNUD NAIL, 6 OR MORE 01/10/2012 90905-HTUYXAL NAIL, 6 OR MORE 05/08/2012 54213-FNHJLQI NAIL, 6 OR MORE 08/07/2012 50377-INXEWLC NAIL, 6 OR MORE 11/27/2012 57328-NWMRLZV NAIL, 6 OR MORE 02/08/2013 20644-UIWLWUM NAIL, 6 OR MORE 05/31/2013 63442-CWLMDKP NAIL, 6 OR MORE 08/06/2013 63052-EJUVFKD NAIL, 6 OR MORE 10/25/2013 00808-SVCNDYM NAIL, 6 OR MORE 01/03/2014 89703-CZFXQBT NAIL, 6 OR MORE 04/04/2014 87664-NZXCHXZ NAIL, 6 OR MORE 06/24/2014 46724-YAWVYMW NAIL, 6 OR MORE 03/10/2017 82199-KZJQIZQ NAIL, 6 OR MORE 06/16/2017 17207-DKNKHCK NAIL, 6 OR MORE 09/15/2017 66729-VBONGIX NAIL, 6 OR MORE 12/15/2017 81586-KZKPBPT NAIL, 6 OR MORE 03/09/2018 76129-WRDCWCI NAIL, 6 OR MORE 06/08/2018 89052-PKBWRAE NAIL, 6 OR MORE 09/21/2018 79093-QZFNOBP NAIL, 6 OR MORE 12/21/2018 90759-ODEMEXG NAIL, 6 OR MORE 03/22/2019 90037-CQUDREV NAIL, 6 OR MORE 06/21/2019 28363-NRHGMMM NAIL, 6 OR MORE 10/04/2019 74315-RLAKXUK NAIL, OR MORE 01/17/2020 69399-IJBEOCZ NAIL, OR MORE 04/10/2020 79673-QSOOVQW NAIL, 6 OR MORE 07/14/2020 41097-RISQTMZ NAIL, 6 OR MORE 10/13/2020 95075-OBMLNWE NAIL, 6 OR MORE 01/05/2021 97671-RLPQIRV NAIL, 6 OR MORE 04/06/2021 01108-Ttbmodvi Plate 04/06/2021 26659-Dxvjcfcs Plate 01/05/2021 32369-Sfhblsjr Plate 10/13/2020 45972-Duuuatuz Plate 07/14/2020 49487-Hytruqsl Plate 04/10/2020 04035-Upbgrkyo Plate 01/17/2020 58170-Pwpbjobc Plate 10/04/2019 72716-Opxejtrg Plate 06/21/2019 56081-Erdpayjx Plate 03/22/2019 74719-Iesicoet Plate 12/21/2018 67253-Tmhnsodu Plate 06/08/2018 14526-Wtdnuwdv Plate 03/09/2018 23633-Ugyivfrv Plate 12/15/2017 59571-Paxcdevp Plate 09/15/2017 06663-Igbaatpc Plate 06/16/2017 27536-Hsmcocuz Plate 03/10/2017 51187-Tjogsvvy Plate 06/24/2014 46194-Sthdnmav Plate 04/04/2014 79009-Gozubwuw Plate 01/03/2014 79146-Vqdkjvnn Plate 10/25/2013 21244-Cyvzdgop Plate 08/06/2013 22334-Xpycrkgw Plate 05/31/2013 20718-Ikewsmcn Plate 02/08/2013 15258-Wzzwpmbe Plate 11/27/2012 63287-Uzmdjwop Plate 08/07/2012 53839-Xbuktnaq Plate 05/08/2012 31467-Twxniisy Plate 01/10/2012 94890-Lozagiuv Plate 08/02/2011 78441-Jyjbxfaj Plate 10/11/2011 98724-Jzkrnomv Plate 05/17/2011 03562-Nzwtgsee Plate 06/12/2015 25245-Gcgziusv Plate 02/27/2015 79541-Htzcniau Plate 12/19/2014 54132-Nggummpp Plate 09/26/2014 80294-Xfzsjctv Plate 12/06/2016 12111-Ncbkggfb Plate 09/06/2016 31098-Pbtqtfvf Plate 03/01/2016 28716-Vqagpics Plate 09/18/2015 69770-Fhwwimkm Plate 05/24/2024 61874-Albpozxp Plate 11/29/2024 85584-Wsxsvfpp Plate 12/29/2023 33205-Jujkzdgx Plate 10/24/2023 17386-Kjoliedc Plate 09/23/2022 75571-Yqziejgi Plate 08/01/2023 82154-Gejiukbo Plate 11/23/2021 09079-Ngxmicju Plate 07/06/2021 82792-Alyfekxi Plate 02/15/2022 06747-Nnshxajc Plate 05/03/2022 82918-Qmvjgaia Plate 12/02/2022 10010-Cgngjdef Plate 09/21/2018 06784-Doyiwvvn Plate 05/09/2023 05403-Pzztlmfj Plate 02/14/2023 01396-Lhxlglbm Plate Each Additional 25293-Hjlsafci Plate Each Additional 41636-Kvrkmjld Plate Each Additional 10/2020 01200-Bqivunqb Plate Each Additional 30717-Rkvxxjxi Plate Each Additional 81066-Xxfkizxk Plate Each Additional 12/2016 74117-Hacbtnhj Plate Each Additional 61982-Midvgrew Plate Each Additional 34129-Rupjnfxk Plate Each Additional 86355-Dlbkamgl Plate Each Additional 05/2015 62520-Mimzdbrp Plate Each Additional 31628-Vtofgliw Plate Each Additional 67106-Eimobivo Plate Each Additional 03/2012 64529-Zcfeqoon Plate Each Additional 04/2012 26894-Mqojvqlp Plate Each Additional 12/2011 63488-Bfgwioka Plate Each Additional 12/2011 49752-Mhdlnabj Plate Each Additional 33353-Lfmpnjlv Plate Each Additional 03/2013 28480-Atispuxi Plate Each Additional 49358-Awzghkff Plate Each Additional 11/2012 25932-Knatymxx Plate Each Additional 97855-Jxgwmemo Plate Each Additional 10/2013 30520-Qmkbxhtr Plate Each Additional 09/2013 45521-Veqxlvmz Plate Each Additional 54613-Mshjsqnt Plate Each Additional 03/2017 33374-Tdvwlwgt Plate Each Additional 07450-Ffcsodua Plate Each Additional 08/2018 73937-Lrfmvtdu Plate Each Additional 92306-Vtkimzne Plate Each Additional 02/2018 63449-Jcnqmxmd Plate Each Additional 01/2018 93942-Qxmlwuph Plate Each Additional 67170-Lmzvmzzk Plate Each Additional 10074-Hbwjtcqz Plate Each Additional 82169-Orvjogsh Plate Each Additional 97434-Zqippwdh Plate Each Additional 95463-Divjnmoe Plate Each Additional 03/2020 31587-Kgocqjaa Plate Each Additional 06/2020 81914-Uyojzefs Plate Each Additional 05/2021 35249-Bgetyirp Plate Each Additional 12/2020 37871-Nrocfdjs Plate Each Additional 11/2020 43013- Debride <25 sq cm 12/02/2011 27133 I&D ABSCESS- SIMPLE,SINGLE 012 67888-ZOJZ SKIN LESIONS, OVER 4 10/24/19 24 20654-YGSA SKIN LESIONS, OVER 4 12/29/19 24 03805-AUWG SKIN LESIONS, OVER 4 03/15/20 24 35826-VLCG SKIN LESIONS, OVER 4 11/30/19 25 40548-BIRR SKIN LESIONS, OVER 4 08/27/20 24 33728-LYJQ SKIN LESIONS, OVER 4 05/24/20 24 94902-FVFH SKIN LESIONS, OVER 4 05/15/20 25 69641-KRBI SKIN LESIONS, OVER 4 02/26/20 25 21385-KYSA SKIN LESIONS, 2 TO 4 11/24/19 22 27678-ZDYO SKIN LESIONS, 2 TO 4 07/06/20 78960-SGZH SKIN LESIONS, 2 TO 4 02/16/20 74147-QNRD SKIN LESIONS, 2 TO 4 05/03/20 48290-UITU SKIN LESIONS, 2 TO 4 07/15/20 97921-ZJOQ SKIN LESIONS, 2 TO 4 12/03/19 23 47432-QNRH SKIN LESIONS, 2 TO 4 09/23/19 72549-YCYH SKIN LESIONS, 2 TO 4 06/13/20 23 80645-OZLX SKIN LESIONS, 2 TO 4 05/09/20 23 70138-TGLE SKIN LESIONS, 2 TO 4 08/01/20 23 05134-STZA SKIN LESIONS, 2 TO 4 06/12/20 15 13040-RYBB SKIN LESIONS, 2 TO 4 02/28/20 15 16842-CIGQ SKIN LESIONS, 2 TO 4 12/20/19 15 81530-VACW SKIN LESIONS, 2 TO 4 09/26/19 15 94670-SOES SKIN LESIONS, 2 TO 4 03/10/20 17 61142-YNEJ SKIN LESIONS, 2 TO 4 12/07/19 17 06979-VBXQ SKIN LESIONS, 2 TO 4 09/06/19 17 16061-KWQT SKIN LESIONS, 2 TO 4 06/03/20 16 48405-DHLL SKIN LESIONS, 2 TO 4 09/18/19 16 68592-EDSP SKIN LESIONS, 2 TO 4 03/01/20 16 85372-HPQF SKIN LESIONS, 2 TO 4 12/01/19 16 86980-HMDV SKIN LESIONS, 2 TO 4 04/06/20 21 13804-ZFTO SKIN LESIONS, 2 TO 4 01/06/20 21 75100-OENF SKIN LESIONS, 2 TO 4 10/13/19 21 29856-RHUQ SKIN LESIONS, 2 TO 4 07/14/20 20 76174-AGKM SKIN LESIONS, 2 TO 4 04/10/20 20 86291-DWDH SKIN LESIONS, 2 TO 4 01/17/20 20 05864-FMYM SKIN LESIONS, 2 TO 4 10/04/19 20 41385-NJGH SKIN LESIONS, 2 TO 4 06/21/20 19 12005-ADYO SKIN LESIONS, 2 TO 4 03/22/20 19 24442-IMFZ SKIN LESIONS, 2 TO 4 12/22/19 19 54820-QMGV SKIN LESIONS, 2 TO 4 09/21/19 19 74977-BAMZ SKIN LESIONS, 2 TO 4 06/08/20 18 44405-WCXS SKIN LESIONS, 2 TO 4 03/09/20 18 14654-VUWT SKIN LESIONS, 2 TO 4 12/16/19 18 44602-CELI SKIN LESIONS, 2 TO 4 09/15/19 18 21692-SGRZ SKIN LESIONS, 2 TO 4 06/16/20 17 HEMOGLOBIN A1C (GLYCOHEMOGLOBIN) 020 Next Appt Details Provider Name:Tony Mann , 08/15/2025 10:15:00 AM, [address], [place], [address], Insurance Providers Payer Name Payer Address Payer Phone Subscriber Number Group Number Insured Name Patient Relationship to Insured Coverage Start Date Coverage End Date Medicare National [employer] [address] [place] [address] [id number] Candace Rodriguez Self - patient is the insured 2 [employer] [address] [place] [address] [phone] [id number] Candace Rodriguez Self - patient is the insured Medical (General) History Medical History History ICD Code high blood pressure Cholesterol rheumatic fever Arthritis anemia type II diabetes Surgical History Surgery Date(Month/Year) hysterectomy 1970 right knee replacement 09/20/2012 left knee replacement 01/06/2014 cataracts 11/2018, 12/2018 triple bypass 03/12/20 Hospitalization History Reason Date(Month/Year) [facility] for High Blood Pressure 12/01/2015
== END 2025-07-10 13:56 | disposition home or self-care (01) ==
LOC: HO.HMCFM 13:03
PROVIDERS: PCP Family Medicine; Visit Provider Family Medicine
DX: I10 Essential (primary) hypertension (principal); I25.10 Atherosclerotic heart disease of native coronary artery without angina pectoris; E11.9 Type 2 diabetes mellitus without complications

== ENCOUNTER → 2025-07-10 13:02 | Outpatient (BNVA) | payer MEDICARE, SELFPAY | PROVIDERS: PCP Family Medicine; Visit Provider Family Medicine | DX: E11.9 Type 2 diabetes mellitus without complications (principal); I10 Essential (primary) hypertension; I25.10 Atherosclerotic heart disease of native coronary artery without angina pectoris | CPT/HCPCS: 83036; 99212 ==